=== PATIENT | male | born 1950 | race Caucasian/White ===

== ENCOUNTER 2017-03-06 13:56 | Inpatient (IN) ==
[2017-03-06] MEDS ORDERED: THIAMINE INJ 100 MG, FOLIC ACID INJ 1 MG, MAGNESIUM SULF INJ 2 GM, MULTIVITAMIN INJ 10 ... IV ONE (14:10)
[2017-03-06] MEDS ORDERED: SODIUM CHLORIDE 0.9% 500 ML IV STA (14:10)
[2017-03-06 14:37] LABS: Basophils # 0.1 10*3/uL (0.0-0.2); Basophils % 0.8 % (0.0-0.8); Eosinophils # 0.3 10*3/uL (0.0-0.87); Eosinophils % 5.1 % (0.00-10.9); Hemoglobin 13.7 GM/DL (14.0-18.0); Immature Granulocytes % 0.2 %; Immature Granulocytes Absolute 0.01 #; Lymphocytes # 1.8 10*3/uL (1.4-4.0); Lymphocytes % 27.9 % (21.2-54.2); Mean Corpuscular HGB Conc 34.3 GM/DL (32-36); Mean Corpuscular Hemoglobin 32 PG (27-34); Mean Corpuscular Volume 92.8 FL (87-102); Mean Platelet Volume 9.5 FL (9.6-12.0); Monocytes # 0.7 10*3/uL (0.11-0.8); Neutrophils # 3.7 10*3/uL (1.4-7.4); Platelet Count 301 T/CUMM (130-400); Red Blood Count 4.31 MC/CUMM (3.8-5.5); Red Cell Distribution Width 12.2 % (9.3-17.3); White Blood Count 6.5 T/CUMM (4-12)
--- NOTE | 2017-03-06 15:12 | XRay Report ---
History: Altered mental status Date: 03/06/2017 Study: Chest x-ray AP portable Comparison exam: 03/05/2017 The cardiomediastinal silhouette is unchanged. The pulmonary vasculature is not engorged. The lungs are generally clear for shallow breath. There is no gross pleural effusion. Osseous structures are similar. Impression: No acute cardiopulmonary process. No significant interval change PROCEDURE INTERPRETED AT [facility] DEPARTMENT OF RADIOLOGY Final Report Signed by: Dr. Tanya Joseph
[2017-03-06 15:16] LABS: Alanine Aminotransferase 20 U/L (16-61); Alkaline Phosphatase 80 U/L (45-117); Aspartate Amino Transferase 38 U/L (0-37); Blood Urea Nitrogen 23 MG/DL (7-18); Calcium 8.9 MG/DL (8.5-10.1); Glucose 110 MG/DL (74-106); Osmolality,Calculated 283.4 MOS/KG (273-304); Potassium 4.3 MMOL/L (3.5-5.1); Sodium 140 MMOL/L (136-145); Total Protein 6.6 G/DL (6.4-8.3); Troponin I Only < 0.015 NG/ML (0.00-0.045)
[2017-03-06 15:35] LABS: Acetaminophen 5.9 UG/ML (10-30); Salicylate < 2.8 MG/DL (2.8-20)
[2017-03-06 16:13] LABS: Apearance,Urine CLEAR (Clear); Bacteria,Urine Occasional /HPF (Few); Bilirubin,Urine Negative (Negative); Blood, Urine Negative (Negative); Glucose,Urine (UA) Negative (Negative); Hyaline Casts,Urine 11 /LPF (0-3); Ketones,Urine 5 mg/dL (Negative); Mucus,Urine Occasional /LPF (Occasional); Nitrite,Urine Negative (Negative); Protein,Urine Negative; RBC,Urine <1 /HPF (0-4); Squamous Epithelial Cell,Urine Occasional /HPF (0-10); Urine Color Yellow (Yellow); Urine Specific Gravity 1.018 (1.001-1.035); Urine Urobilinogen < 2.0 EU/DL (0.2-1.0); WBC,Urine 3 /HPF (0-6)
[2017-03-06 16:20] LABS: Barbiturates Screen,Urine Negative (Negative); Benzodiazepines Screen,Urine Negative (Negative); Cannabinoid Screen,Urine Negative (Negative); Opiate Screen,Urine Positive (Negative); Phencyclidine Screen,Urine Negative (Negative)
--- NOTE | 2017-03-06 16:34 | Emergency Department Note ---
Amado Kaufman Brittany, am scribing for, and in the presence of, Savage Skinner MD 14:15. Brody Kaufman Doug C, MD, personally performed the services described in this documentation, ascribed by Sandy Fischer in my presence, and it is both accurate and complete [id number] . Arrival - Arrival Chief Complaint: Altered Mental Status Stated Complaint: Unresponsive ED Nursing Triage Note: altered mental status. brought per family from home. was seen here yesterday. Mode of Arrival: Wheelchair Limitations: No Limitations Source: Patient, RN Notes Reviewed Time Seen by Provider: 03/06/17 14:10 - History of Present Illness HPI Narrative: Patient 67-year-old white male brought to the emergency room for decreased responsiveness. Patient apparently lives alone and was here in the emergency room yesterday. His laboratory studies were normal as was a CT of his brain. Chest x-ray revealed no evidence of pneumonia or other abnormality. Patient is very deaf and difficult to get history from but he told me he is having chest pain that started this morning. He states is short of breath but is always a little short of breath. He has not had any nausea vomiting or diaphoresis. Patient was seen here in the emergency room yesterday and he had no clear medical indication for admission. I told the family that he needed supervision as he certainly appears to be in capable of living alone. I asked the family if he took too much of his medications and they are uncertain. Onset (ago): hour(s) (2) Consistency: constant Severity: moderate Severity scale (1-10): 6 Quality: sharp Allergies/Adverse Reactions: Allergies Allergy/AdvReac Type Severity Reaction Status Date / Time No Known Allergies Allergy Verified 03/05/17 13:52 Home Medications: Home Medications Medication Instructions Recorded Confirmed Type Acetamin/Codeine 300-30 Tab 1 - 2 tablet PO Q6H PRN 06/05/15 03/05/17 History [Tylenol/Codeine #3] Gabapentin Cap/Tab [Neurontin 300 mg PO BID 06/05/15 03/05/17 History Cap/Tab] Nabumetone [Relafen] 750 mg PO BID 06/05/15 03/05/17 History clonazePAM [Klonopin] 1 mg PO BID PRN 06/05/15 03/05/17 History Albuterol Inhaler [Proventil 2 puff INH Q6H PRN #1 inhaler 03/05/17 Rx Inhaler] Albuterol Sulfate [Ventolin HFA] 2 puff PO DAILY PRN 03/05/17 03/05/17 History Amitriptyline HCl 25 mg PO BEDTIME 03/05/17 03/05/17 History Amoxicillin Cap/Tab 875 mg PO BID #20 tablet 03/05/17 Rx Baclofen Tab [Lioresal] 10 mg PO TID 03/05/17 03/05/17 History Tizanidine HCl 4 mg PO Q8H PRN 03/05/17 03/05/17 History Review of System - Review of System 12 point system: reviewed and no additional remarkable complaints except as stated - Review of System Constitutional: Absent: chills, diaphoresis, fever Eyes: Absent: vision change Head/Ears/Nose/Throat: Absent: nasal drainage, sore throat Respiratory: Present: respiratory distress Cardiovascular: Present: as per HPI, chest pain Gastrointestinal: Present: nausea. Absent: abdominal pain, vomiting, diarrhea, constipation Genitourinary male: Absent: urgency, dysuria, frequency Musculoskeletal: Absent: arm pain, back pain, leg pain, neck pain Skin: Present: as per HPI. Absent: rash Neurological: Absent: headache Psychiatric: Absent: anxiety, depression Hematological/Lymphatic: Absent: easy bleeding, easy bruising Medical,Surgical,& Family Hx - Medical History Respiratory: History of: COPD - Surgical History Surgical History: noncontributory - Family History Family History: noncontributory - Social History Smoking Status: Smoker, status unknown Exam Vital Signs: Vital Signs Temperature 98.2 F 03/06/17 16:24 Pulse Rate 67 03/06/17 16:24 Respiratory Rate 20 03/06/17 16:24 Blood Pressure 114/70 03/06/17 16:24 O2 Sat by Pulse Oximetry 100 03/06/17 13:59 - General General appearance: alert, in no apparent distress, other (History is difficult secondary to patient's poor hearing) - Head Head exam: Present: normocephalic - Eye Eye exam: Present: PERRL, EOMI - ENT ENT exam: Present: normal exam, normal oropharynx - Neck Neck exam: Present: normal inspection, full ROM, trachea midline - Chest Chest inspection: Present: normal inspection, symmetric chest wall rise - Respiratory Respiratory exam: Present: normal lung sounds bilaterally - Cardiovascular Cardiovascular exam: Present: regular rate, normal rhythm, murmur (5/6 systolic ejection murmur at the left base and apex). Absent: normal heart sounds - Abdominal Exam Abdominal exam: Present: soft, normal bowel sounds. Absent: tenderness - Extremities Exam Extremities exam: Present: full ROM. Absent: normal inspection (merthiolate noted to bilateral upper extremities) - Back Exam Back exam: Present: normal inspection - Neurological Exam Neurological exam: Present: alert, oriented X3, CN II-XII intact. Absent: motor sensory deficit - Psychiatric Psychiatric exam: Present: normal affect - Skin Skin exam: Present: warm, dry, other (merthiolate noted to bilateral upper extremities) Course Course Narrative: Patient's clinical presentation, laboratory radiograph findings were discussed with Bhavana who is covering the hospitalist service. She will see the patient emergency room and evaluate for admission. Results - Labs CBC & BMP: 03/06/17 14:28 03/06/17 14:34 Lab Results: I have reviewed the patients labs Labs: Laboratory Tests 03/06/17 14:28 WBC 6.5 RBC 4.31 Hgb 13.7 L Hct 40.0 L MCV 92.8 MCH 32 MCHC 34.3 RDW 12.2 Plt Count 301 MPV 9.5 L Neut % (Auto) 56.0 Lymph % (Auto) 27.9 [place] % (Auto) 10.0 Eos % (Auto) 5.1 Baso % (Auto) 0.8 Neut # (Auto) 3.7 Lymph # (Auto) 1.8 [place] # (Auto) 0.7 Eos # (Auto) 0.3 Baso # (Auto) 0.1 Immature Gran % 0.2 Nucleated RBC % 0.0 Immature Gran # 0.01 Nucleated RBCs # 0.00 Laboratory Tests 03/06/17 14:34 Sodium 140 Potassium 4.3 Chloride 106 Carbon Dioxide 25 Anion Gap 13.3 BUN 23 H Creatinine 1.60 H GFR Calculation 47 BUN/Creatinine Ratio 14.00 Glucose 110 H Calculated Osmolality 283.4 Calcium 8.9 Total Bilirubin 0.90 AST 38 H ALT 20 Alkaline Phosphatase 80 Troponin I < 0.015 Total Protein 6.6 Albumin 4.0 Globulin 2.6 Albumin/Globulin Ratio 1.5 Laboratory Tests 03/06/17 14:28 Salicylates < 2.8 L Acetaminophen 5.9 L Laboratory Tests 03/06/17 03/06/17 16:05 16:05 Urine Color Yellow Urine Appearance Clear Urine pH 5.0 Ur Specific [place] 1.018 Urine Protein Negative Urine Glucose (UA) Negative Urine Ketones 5 Urine Blood Negative Urine Nitrate Negative Urine Bilirubin Negative Urine Urobilinogen < 2.0 H Urine Leukocytes Negative Urine RBC <1 Urine WBC 3 Ur Squamous Epith Cells Occasional Urine Bacteria Occasional Hyaline Casts 11 Urine Mucus Occasional Urine Myoglobin Negative Laboratory Tests 03/06/17 03/06/17 16:05 16:05 Urine Color Yellow Urine Appearance Clear Urine pH 5.0 Ur Specific [place] 1.018 Urine Protein Negative Urine Glucose (UA) Negative Urine Ketones 5 Urine Blood Negative Urine Nitrate Negative Urine Bilirubin Negative Urine Urobilinogen < 2.0 H Urine Leukocytes Negative Urine RBC <1 Urine WBC 3 Ur Squamous Epith Cells Occasional Urine Bacteria Occasional Hyaline Casts 11 Urine Mucus Occasional Urine Opiates Screen Positive H Ur Barbiturates Screen Negative Ur Phencyclidine Scrn Negative U Amphetamine/Methamph Negative U Benzodiazepines Scrn Negative U Cocaine Metab Screen Negative U Cannabinoids Screen Negative - EKG EKG results: interpreted by ERMShi, sinus rhythm (65 bpm), no acute changes - Diagnostic Findings Procedure: Chest x-ray: report reviewed by me (No acute cardiopulmonary process. No significant interval change.) Disposition Clinical Impression: Altered mental status, Unsteady gait, Recurrent falls Case discussed with: patient, patient's family Disposition: Still a Patient Condition: Stable Time of Disposition: 16:34
--- NOTE | 2017-03-06 17:03 | Hospitalist History & Physical ---
<Rachel De La Torreda - Last Filed: 03/06/17 17:24> Assessment and Plan (1) Altered mental status Status: Acute Assessment and plan: He is altered. Upon review of his medications; he was noted to have several agents with the potentiation of sedation. We will hold these agents for now. We will give him a chance to wake-up. Current Visit: Yes (2) Recurrent falls Status: Acute Assessment and plan: I suspect that this is largely attributed to his current medication use and mis- management. He is weak; we will rehydrate and consult PT/OT to eval and treat. Current Visit: Yes (3) Unsteady gait Status: Acute Assessment and plan: PT/OT consult ordered. Current Visit: Yes (4) Acute bronchitis Status: Acute Assessment and plan: We will start inhaled bronchodilators per nebulizer; will adjust and mange accordingly. Current Visit: No History of Present Illness Chief complaint: altered mental status/falls/generalized weakness History of present illness: This is very poor and unfortunate 67 year old male that presented to the ED at [facility] this afternoon for evaluation of generalized weakness, and falls. The patient has a very limited medical history of chronic obstructive pulmonary disease and arthritis. His sister is at bedside; she will serve as historian. She reports that the patient was told in past that he had "bone cancer" and "multiple sclerosis". She reports that the patient has been experiencing issues since their mother's and attributes gradual decline in status to "grief". The patient was brought to the ED on yesterday for the same complaint in which he was seen, evaluated, and discharged. CT scan and chest radiograph was performed on yesterday which were essentially unremarkable Overnight; his sister reports that he sustained several falls on last night and this morning while attempting to ambulate. She reports that he became difficult to arouse; she became alarmed and brought him to the ED for further evaluation. Labs were obtained which revealed a creatinine of 1.60, AST of 38, glucose of 110, salicylates of <28, and acetaminophen of 5.9. After brief discussion with both Dr. Skinner and Dr. Morrissey, the patient will be admitted to the hospitalist service for continuation of care. The sister verbalized concerns regarding the patient current home situation.We will consult social work coordinator for evaluation of home environment. Home Medications Medication Instructions Recorded Confirmed Type Acetamin/Codeine 300-30 Tab 1 - 2 tablet PO Q6H PRN 06/05/15 03/05/17 History [Tylenol/Codeine #3] Gabapentin Cap/Tab [Neurontin 300 mg PO BID 06/05/15 03/05/17 History Cap/Tab] Nabumetone [Relafen] 750 mg PO BID 06/05/15 03/05/17 History clonazePAM [Klonopin] 1 mg PO BID PRN 06/05/15 03/05/17 History Albuterol Inhaler [Proventil 2 puff INH Q6H PRN #1 inhaler 03/05/17 Rx Inhaler] Albuterol Sulfate [Ventolin HFA] 2 puff PO DAILY PRN 03/05/17 03/05/17 History Amitriptyline HCl 25 mg PO BEDTIME 03/05/17 03/05/17 History Amoxicillin Cap/Tab 875 mg PO BID #20 tablet 03/05/17 Rx Baclofen Tab [Lioresal] 10 mg PO TID 03/05/17 03/05/17 History Tizanidine HCl 4 mg PO Q8H PRN 03/05/17 03/05/17 History Allergies Allergy/AdvReac Type Severity Reaction Status Date / Time No Known Allergies Allergy Verified 03/05/17 13:52 Medical,Surgical,& Family Hx - Medical History Respiratory: History of: COPD - Social History Smoking Status: Smoker, status unknown ROS unobtainable: due to mental status Exam - Constitutional Vitals: Period Temp Pulse Resp BP Sys/[place] Pulse Ox Last 24 Hr 98.2 F-98.2 F 67-67 18-20 114-114/70-70 100 General appearance: normal weight, no acute distress - Head Head exam: Present: normal inspection, normocephalic, atraumatic - Eye Eye exam: Present: EOMI. Absent: conjunctival injection Pupils: Present: SHARLA, normal accommodation - ENT ENT exam: Present: normal exam, normal external ear exam, normal oropharynx - Neck Neck exam: Present: normal inspection. Absent: lymphadenopathy, meningismus, thyromegaly - Respiratory Respiratory exam: Present: clear to auscultation bilaterally - Cardiovascular Cardiovascular exam: Present: regular rate and rhythm, systolic murmur - GI/Abdominal GI/Abdominal exam: Present: normal bowel sounds, soft - Extremities Exam Extremities exam: Present: normal inspection, normal capillary refill, full ROM. Absent: edema - Back Exam Back exam: Present: normal inspection - Neurological Exam Neurological exam: Present: altered (lethargic) - Psychiatric Psychiatric exam: Present: flat affect Results - Labs CBC & BMP: 03/06/17 14:28 03/06/17 14:34 Lab Results: I have reviewed the past 24 hour labs <Marija Morrissey - Last Filed: 03/06/17 18:42> Assessment and Plan (1) Acute kidney injury Status: Acute Assessment and plan: Creatinine of 1.6 Gently hydrate overnight Recheck in am Most likely secondary to dehydration, given patient's poor appetite. Current Visit: Yes History of Present Illness History of present illness: Patient seen and examined independently of SPORTS DIRECTOR Wil, agree with history, assessment and plan as documented. 67 y/o WM admitted for generalized weakness, falls and HOENY. Patient has difficulty hearing so unable to get a history from him. Will gently hydrate, monitor on telemetry and get orthostatic vitals. On exam patient does have a murmur, will get an echo. Exam - Constitutional Vitals: Period Temp Pulse Resp BP Sys/[place] Pulse Ox Last 24 Hr 97.8 F-98.2 F 55-67 16-21 104-126/54-70 97-100 Results - Labs CBC & BMP: 03/06/17 14:28 03/06/17 14:34
[2017-03-06] MEDS ORDERED: ONDANSETRON 4 MG/2 ML VIAL IV PRN (17:30)
[2017-03-06] MEDS: ENOXAPARIN 40 MG/0.4 ML SYRINGE SUBCUT SCH (18:26)
[2017-03-06] MEDS: DEXTROSE 5% NACL 0.9% 1,000 ML IV SCH (18:32)
--- NOTE | 2017-03-06 19:46 | Ultrasound Report ---
History: Altered mental status. Unsteady gait. Recurrent falls. Syncope Date: 03/06/2017 Study: Carotid duplex ultrasound Comparison exam: No previous similar Color Doppler, wave form analysis, and grayscale analysis of the cervical carotid arteries was performed. There is mild to moderate partially calcified plaque in either carotid bulb. Waveform analysis shows proper directional flow of the cervical carotid arteries. There is antegrade flow in either vertebral artery. The distal right ICA measures 6.1 mm diameter; the left measures 4.7 mm diameter. Peak systolic velocities are as follows: Right CCA 62 cm/s Right ICA 100 cm/s Right ECA 56 cm/s Right vertebral 57 cm/s Right IC/CC ratio 1.6 Left CCA 42 cm/s Left ICA 102 cm/s Left ECA 81 cm/s Left vertebral 25 cm/s Left IC/CC ratio 2.4 There is 16-49 % diameter reduction narrowing of either internal carotid artery using indirect NASCET criteria. Ultrasound images were captured and archived. Impression: No hemodynamically significant internal carotid artery stenosis PROCEDURE INTERPRETED AT [facility] DEPARTMENT OF RADIOLOGY Final Report Signed by: Dr. Tanya Joseph
[2017-03-06] MEDS: SODIUM CHLORIDE 0.9% 1,000 ML IV SCH (22:58)
[2017-03-07] MEDS: DEXTROSE 5% NACL 0.9% 1,000 ML IV SCH ×2 (03:07→17:41)
[2017-03-07 06:33] LABS: Basophils # 0.1 10*3/uL (0.0-0.2); Basophils % 1.3 % (0.0-0.8); Eosinophils # 0.3 10*3/uL (0.0-0.87); Eosinophils % 8.6 % (0.00-10.9); Hematocrit 37.6 VOL% (42.0-52.0); Hemoglobin 12.2 GM/DL (14.0-18.0); Immature Granulocytes % 0.3 %; Immature Granulocytes Absolute 0.01 #; Lymphocytes # 1.7 10*3/uL (1.4-4.0); Lymphocytes % 44.4 % (21.2-54.2); Mean Corpuscular HGB Conc 32.4 GM/DL (32-36); Mean Corpuscular Hemoglobin 31 PG (27-34); Mean Corpuscular Volume 96.4 FL (87-102); Mean Platelet Volume 9.3 FL (9.6-12.0); Monocytes # 0.3 10*3/uL (0.11-0.8); Monocytes % 9.1 % (1.7-12.7); Neutrophils # 1.4 10*3/uL (1.4-7.4); Neutrophils % 36.3 % (38.7-73.9); Platelet Count 250 T/CUMM (130-400); Red Cell Distribution Width 12.5 % (9.3-17.3); White Blood Count 3.7 T/CUMM (4-12)
[2017-03-07 07:03] LABS: Eosinophils 11 % (0-10); Lymphocytes 40 % (20-55); Segmented Neutrophils 45 % (50-85); Total Cells Counted 100
[2017-03-07 07:04] LABS: Platelet Estimate Normal
[2017-03-07 07:08] LABS: Albumin 2.9 G/DL (3.4-5.0); Bilirubin,Total 0.8 MG/DL (0.2-1.0); Calcium 7.3 MG/DL (8.5-10.1); Magnesium 2.2 MG/DL (1.8-2.4); Osmolality,Calculated 288.6 MOS/KG (273-304); Potassium 3.9 MMOL/L (3.5-5.1); Risk Ratio 2.28; Total Protein 4.9 G/DL (6.4-8.3); VLDL CHOLESTEROL 14.2 MG/DL
--- NOTE | 2017-03-07 07:29 | EKG Report ---
Stationary ECG Study 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
--- NOTE | 2017-03-07 14:14 | Hospitalist Progress Note ---
Assessment and Plan (1) Acute kidney injury Status: Acute Assessment and plan: Creatinine of 1.6 on admission Creatinine down to normal after gentle hydration overnight Will discontinue IV fluids Encourage po intake Monitor labs Current Visit: Yes (2) Altered mental status Status: Acute Assessment and plan: Improved Current Visit: Yes (3) Recurrent falls Status: Acute Assessment and plan: Unable to get a clear history from the patient, due to difficulty hearing and dementia, so unsure if associated with syncope Unimpressive carotid dopplers Echo ordered Monitoring on telemetry Possibly due to medication misuse. Current Visit: Yes Hospitalist: Subjective Interval history: No acute events overnight. Patient awake and alert this am. Very difficult to obtain history due to him being hard of hearing. His sister reports that his appetite has been better today and that he has been more awake. Exam - Constitutional Vitals: Period Temp Pulse Resp BP Sys/[place] Pulse Ox Last 24 Hr 97.2 F-98.2 F 55-79 16-21 104-133/54-74 94-100 General appearance: normal weight - Head Head exam: Present: normocephalic, atraumatic - Eye Eye exam: Present: EOMI Pupils: Present: SHARLA - ENT ENT exam: Present: normal exam - Neck Neck exam: Present: normal inspection - Respiratory Respiratory exam: Present: clear to auscultation bilaterally. Absent: rhonchi, wheezes - Cardiovascular Cardiovascular exam: Present: regular rate and rhythm - GI/Abdominal GI/Abdominal exam: Present: normal bowel sounds, soft. Absent: tenderness, rebound - Extremities Exam Extremities exam: Present: normal inspection - Back Exam Back exam: Present: normal inspection - Neurological Exam Neurological exam: Present: alert, oriented X3 - Psychiatric Psychiatric exam: Present: normal affect, normal mood - Skin Skin exam: Present: warm, intact Results - Labs CBC & BMP: 03/07/17 06:15 03/07/17 06:14
[2017-03-07] MEDS: SODIUM CHLORIDE 0.9% 1,000 ML IV SCH (17:42)
[2017-03-07] MEDS: ENOXAPARIN 40 MG/0.4 ML SYRINGE SUBCUT SCH (19:18)
--- NOTE | 2017-03-07 20:10 | ECHO Report ---
Hubert Cardenas Exam Date: 03/07/2017 10:19 Referring Physician: Technologist: Bebe Trevizo Age: 67 Ht (in): 66 Wt (lb): 134 Gender: M Exam Location: [facility] Echo Indications: severe fall, Copd, possible syncioe, murmur, acute bronchitis, acute kidney failure BP: 121 / 74 HR: 63 Rhythm: Sinus Technical Quality: average IMPRESSIONS There is moderate concentric left ventricular hypertrophy. EF is 55%. Diastolic parameters are most consistent with grade 1 diastolic dysfunction. Mild mitral valve regurgitation. There is mitral annular calcification posteriorly. Tricuspid regurgitation velocities suggest a PAP of 28 mmHg. Severe aortic stenosis with estimated BETO of 0.69 cm2 MEASUREMENTS (Male / Female) Normal Values 2D ECHO LV Diastolic Diameter PLAX 3.9 cm 4.2 - 5.9 / 3.9 - 5.3 cm LV Systolic Diameter PLAX 2.4 cm LV Fractional Shortening PLAX 36.6 % IVS Diastolic Thickness 1.7 cm 0.6 - 1.0 / 0.6 - 0.9 cm LVPW Diastolic Thickness 1.3 cm 0.6 - 1.0 / 0.6 - 0.9 cm RV Internal Dim ED PLAX 2.5 cm Aortic Root Diameter 3.4 cm LA Systolic Diameter LX 3.7 cm 3.0 - 4.0 / 2.7 - 3.8 cm DOPPLER TR Peak Velocity 211.0 cm/s TR Peak Gradient 17.8 mmHg FINDINGS Left Ventricle There is moderate concentric left ventricular hypertrophy. There is no regional wall motion abnormality. Diastolic parameters are most consistent with grade 1 diastolic dysfunction. There is no clear regional wall motion abnormality. EF is 55% Right Ventricle Normal right ventricular size and systolic function. Right Atrium Normal right atrial size. Left Atrium Normal left atrial size. Mitral Valve Mild mitral valve sclerosis. Mild mitral valve regurgitation. There is mitral annular calcification posteriorly. Aortic Valve Severe aortic valve stenosis. Aortic valve area is 0.69 cm. Aortic valve mean gradient is 48 mmHg. The peak velocity across the valve is 4.71 m/sec with a peak instantaneous gradient of 89 and a mean gradient of 48 mmHg. This is calcific stenosis Tricuspid Valve Morphologically normal tricuspid valve. Mild tricuspid valve regurgitation. Tricuspid regurgitation velocities suggest a PAP of 28 mmHg. Pulmonic Valve Pulmonic valve not well visualized. Pericardium No pericardial effusion. Aorta Normal size aortic root and proximal ascending aorta. Dawn Sabina (Electronically Signed) Final Date: 07 Mar 2017 20:08
[2017-03-08 05:06] LABS: Basophils # 0.1 10*3/uL (0.0-0.2); Basophils % 1.3 % (0.0-0.8); Eosinophils # 0.3 10*3/uL (0.0-0.87); Hematocrit 36.7 VOL% (42.0-52.0); Hemoglobin 12.4 GM/DL (14.0-18.0); Immature Granulocytes % 0.4 %; Immature Granulocytes Absolute 0.02 #; Lymphocytes # 1.7 10*3/uL (1.4-4.0); Lymphocytes % 35.8 % (21.2-54.2); Mean Corpuscular HGB Conc 33.8 GM/DL (32-36); Mean Corpuscular Hemoglobin 32 PG (27-34); Mean Corpuscular Volume 94.1 FL (87-102); Mean Platelet Volume 9.7 FL (9.6-12.0); Monocytes # 0.5 10*3/uL (0.11-0.8); Monocytes % 10.2 % (1.7-12.7); Neutrophils # 2.2 10*3/uL (1.4-7.4); Neutrophils % 46.3 % (38.7-73.9); Platelet Count 282 T/CUMM (130-400); Red Cell Distribution Width 12.3 % (9.3-17.3); White Blood Count 4.7 T/CUMM (4-12)
[2017-03-08 05:30] LABS: Calcium 8.6 MG/DL (8.5-10.1); Potassium 4.1 MMOL/L (3.5-5.1)
[2017-03-08] MEDS ORDERED: TUBERCULIN SKIN TEST 0.1 ML SYRINGE INTRADERM ONE (12:00)
[2017-03-08] MEDS ORDERED: DIAZEPAM 5 MG TABLET PO ONE (13:16)
[2017-03-08] MEDS ORDERED: diphenhydrAMINE CAP 25 MG CAPSULE PO ONE (13:16)
[2017-03-08] MEDS ORDERED: MAGNESIUM SULF RIDER 2 GM in PREMIX 1 EACH IV PRN (13:16)
--- NOTE | 2017-03-08 13:26 | Cardiology Consult Note ---
I, Helena Jernigan RN, am scribing for, and in the presence of, Fabio Youssef MD 13:22. Assessment and Plan - Time spent with patient Time spent with patient: Greater than 30 minutes (Due to assessment, planning, documentation, medication review) (1) Severe aortic stenosis Status: Acute Assessment and plan: The patient will likely need valve replacement. I am going to do cardiac catheterization to assess his coronary anatomy to help plan the best timing and approach for valve replacement. We may also need to define his "bone cancer" to make sure this does not make him a poor operative candidate. Unfortunately, he does not have any records in the hospital to review. Current Visit: Yes (2) Syncope Status: Acute Assessment and plan: Some of these spells may be related to his aortic stenosis, other episodes may be related to narcotics, or some combination of both. Current Visit: Yes (3) Hard of hearing Status: Acute Current Visit: Yes (4) Dementia Status: Acute Current Visit: Yes (5) Recurrent falls Status: Acute Assessment and plan: Many of these may actually be related to chronic narcotic use. However, he does have severe aortic stenosis which may also be a factor. Current Visit: Yes History of Present Illness - Data of Consult Patient: new to practice Consult date: 03/08/17 Requesting Physician: Marija Morrissey - Consult Narrative Reason for consult: Severe aortic stenosis on echo History of present illness: Product Inspection Coordinator: None PCP: Dr. Johnson Mr. Ronald Ramirez is a 67 year old male who has never been seen by pocket marker. He is extremely hard of hearing and has some dementia so he is a very poor historian and the majority of the information is obtained from his sister who is at the bedside. She has power of transactional attorney over him. Apparently his mother was his caregiver until she within the last few years. The only thing he can tell me about his history is that he has been told he has a heart murmur. His sister reports he also has arthritis, multiple sclerosis, and "bone cancer" . She is unsure if he has undergone any treatment for the cancer, but he has chronic diffuse musculoskeletal pain. He is on chronic narcotic therapy at home. No known surgical history. His sister is unaware of any paternal family history family history, his mother had a history of thyroid disease and cancer and he has siblings with hypertension, diabetes, and cancer. He no longer smokes, reportedly quit smoking about 40 years ago. The sister tells me that for several months Mr. Cardenas has had multiple falls. She reports that numerous times he has become short of breath and passed out. She reports that he chronically short of breath at rest, but this is gotten worse over the last several months. He complains of generalized pain all over his body from time to time. He has recently been dizzy and weak. She reports a recent weight loss about 30 pounds over the last 6 months. She brought her to the emergency department up for yesterday because he was unresponsive, although he was positive for opiates. She does admit that on several occasions in the past when he has had spells, he has been clearly impaired from the narcotics. Cardiology has been asked to see the patient for evidence of severe aortic valve stenosis on echo. He had an echo done that was ordered by Radha Rey NP in January 2015 that showed moderate aortic stenosis. Both the patient and his sister said that he has never seen a pocket marker regarding this. A repeat echo here in the hospital shows severe aortic stenosis with a mean gradient of around 48 mmHg and an aortic valve area calculated at around 0.7 cm. At the time I saw the patient, he was sitting up in a chair in no acute distress. He denies any chest pain or discomfort at this time. He also denies any shortness of breath, palpitations, or dizziness presently. Vital signs and labs have been stable. His home medications have been held at this time. EKG done on admission showed sinus rhythm with heart rate of 65. Carotid ultrasound done March 06 with 16-49% diameter reduction narrowing of either internal carotid artery. Chest x-ray on admission was unremarkable. I had a long discussion with the patient's sister regarding how to evaluate and treat him. He does have severe aortic stenosis and it sounds like it is symptomatic, at least at times. At other times, it sounds like his near syncopal/syncopal spells and falls may be related to narcotics. Nevertheless, I think we should define his coronary anatomy. If he has significant obstructive coronary artery disease in addition to his severe aortic stenosis, and AVR CABG may be the best treatment option. I mentioned to however, but it does not sound like the patient/family will be able to travel to [place] for this kind of procedure. Current Medications Enoxaparin Sodium (Lovenox) 40 mg SUBCUT Q24H JOSEPHINE Last Admin: 03/07/17 19:18 Dose: 40 mg Ondansetron HCl (Zofran Inj) 4 mg IV Q4H PRN PRN Reason: Nausea CC: Marija Morrissey MD - Home Medications and Allergies Home Medications: Home Medications Medication Instructions Recorded Confirmed Type Acetamin/Codeine 300-30 Tab 1 - 2 tablet PO Q6H PRN 06/05/15 03/05/17 History [Tylenol/Codeine #3] Gabapentin Cap/Tab [Neurontin 300 mg PO BID 06/05/15 03/05/17 History Cap/Tab] Nabumetone [Relafen] 750 mg PO BID 06/05/15 03/05/17 History clonazePAM [Klonopin] 1 mg PO BID PRN 06/05/15 03/05/17 History Albuterol Inhaler [Proventil 2 puff INH Q6H PRN #1 inhaler 03/05/17 Rx Inhaler] Albuterol Sulfate [Ventolin HFA] 2 puff PO DAILY PRN 03/05/17 03/05/17 History Amitriptyline HCl 25 mg PO BEDTIME 03/05/17 03/05/17 History Amoxicillin Cap/Tab 875 mg PO BID #20 tablet 03/05/17 Rx Baclofen Tab [Lioresal] 10 mg PO TID 03/05/17 03/05/17 History Tizanidine HCl 4 mg PO Q8H PRN 03/05/17 03/05/17 History Allergies/Adverse Reactions: Allergies Allergy/AdvReac Type Severity Reaction Status Date / Time No Known Allergies Allergy Verified 03/05/17 13:52 - Constitutional Constitutional: Present: as per HPI - EENT Eyes: Present: loss of vision, requires corrective lense Ears: Present: decreased hearing, tinnitus Nose, mouth and throat: Present: headache(s). Absent: epistaxis - Cardiovascular Cardiovascular: Present: dyspnea, lightheadedness, palpitations. Absent: chest pain at rest, chest pain with activity, edema, radiating jaw, neck or arm pain, orthopnea - Respiratory Respiratory: Present: cough, dyspnea. Absent: hemoptysis, wheezing - Gastrointestinal Gastrointestinal: Absent: abdominal pain, constipation, diarrhea, hematemesis, hematochezia, melena, nausea, vomiting - Genitourinary Genitourinary: Absent: hematuria - Musculoskeletal Musculoskeletal: Present: joint swelling, limited range of motion, muscle weakness - Neurological Neurological: Present: abnormal gait, abnormal speech, confusion, dizziness, frequent falls, headache(s), syncope - Psychiatric Psychiatric: Absent: anxiety, depression - Endocrine Endocrine: Present: fatigue - Hematologic/Lymphatic Hematologic/Lymphatic: Absent: easy bleeding, easy bruising Medical,Surgical,& Family Hx - Medical History Cardio: History of: Valvular Heart Disease Rheumatology: History of;: Rheumatoid Arthritis Respiratory: History of: COPD Musculoskeletal: History of: Musculoskeletal Problems Other: History of: Cancer (Bone) - Surgical History Surgical History: noncontributory - Social History Smoking Status: Former smoker (Quit about 40 years ago) Frequency of Alcohol Use: None Type of Drug Use: None Marital Status: Single Lives With:: Alone Functional capacity: independent ambulation Physical Examination Vital Signs Temp Pulse Resp BP Pulse Ox 98.2 F 67 20 114/70 100 03/06/17 13:59 03/06/17 13:59 03/06/17 13:59 03/06/17 13:59 03/06/17 13:59 General: Present: Appears Well, No Apparent Distress HEENT: Present: PERRL, Mucus Membranes Moist Neck: Present: Supple Neck, Midline Trachea Cardiac: Present: Reg Rate and Rhythm, Systolic Murmur Lungs: Present: Normal Breath Sounds, No Wheeze, Rales, Rhonchi Neuro: Absent: Resting Tremor, Essential Tremor Abdomen: Present: Soft, Active Bowel Sounds, Non-Tender. Absent: Distended Skin: Present: Clear Musculoskeletal: Present: Decreased Range of Motion Gait: Present: Poor Gait Extremities: Present: No Edema, Normal Upper Extr. Pulses. Absent: Normal Gait , Normal Lower Extr. Pulses (Weight pulses to lower extremities bilaterally) Result/EKG - Labs CBC & BMP: 03/08/17 04:42 03/08/17 04:42 Lab Results: I have reviewed the past 24 hour labs Labs: Laboratory Results - last 24 hr 03/08/17 03/08/17 04:42 04:42 WBC 4.7 RBC 3.90 Hgb 12.4 L Hct 36.7 L MCV 94.1 MCH 32 MCHC 33.8 RDW 12.3 Plt Count 282 MPV 9.7 Neut % (Auto) 46.3 Lymph % (Auto) 35.8 [place] % (Auto) 10.2 Eos % (Auto) 6.0 Baso % (Auto) 1.3 H Neut # (Auto) 2.2 Lymph # (Auto) 1.7 [place] # (Auto) 0.5 Eos # (Auto) 0.3 Baso # (Auto) 0.1 Immature Gran % 0.4 Nucleated RBC % 0.0 Immature Gran # 0.02 Nucleated RBCs # 0.00 Sodium 143 Potassium 4.1 Chloride 108 H Carbon Dioxide 27 Anion Gap 12.1 BUN 12 Creatinine 0.90 GFR Calculation 85 BUN/Creatinine Ratio 13.00 Glucose 97 Calculated Osmolality 284.0 Calcium 8.6 Magnesium 2.0 - Diagnostic Findings Procedure: Chest x-ray: report reviewed by me - EKG EKG results: interpreted by me EKG shows: sinus rhythm Mikael Kaufman Michael, MD, personally performed the services described in this documentation, ascribed by Helena Jernigan RN in my presence, and it is both accurate and complete 326 .
--- NOTE | 2017-03-08 14:34 | Hospitalist Progress Note ---
Assessment and Plan (1) Acute kidney injury Status: Resolved Assessment and plan: Creatinine of 1.6 on admission Creatinine down to normal after gentle hydration overnight IV fluids discontinued 03/07 Encourage po intake Monitor labs Current Visit: Yes (2) Altered mental status Status: Acute Assessment and plan: Improved Patient is alert Family reports that patient does have dementia Mental status changes possibly due to over medication Patient was taking his medications on his own, inappropriately Current Visit: Yes (3) Recurrent falls Status: Acute Assessment and plan: Unable to get a clear history from the patient, due to difficulty hearing and dementia, so unsure if associated with syncope Unimpressive carotid dopplers Echo with severe aortic stenosis, could be contributing Monitoring on telemetry Possibly due to medication misuse. Current Visit: Yes (4) Severe aortic stenosis Status: Acute Assessment and plan: Per echo Cardiology consulted He will have a cardiac cath Agree that this "bone cancer" needs to be figured out. OSH from [place] and his PCP ordered Current Visit: Yes Hospitalist: Subjective Interval history: No acute events overnight. Patient's sister reports that he was awake most of the night. Seen this morning sitting in the chair, alert. Called [facility] in [place] to get his medication list. Exam - Constitutional Vitals: Period Temp Pulse Resp BP Sys/Delgadillo Pulse Ox Last 24 Hr 97.3 F-99.3 F 67-89 19-20 109-131/57-75 94-98 General appearance: under weight - Head Head exam: Present: normocephalic, atraumatic - Eye Eye exam: Present: EOMI Pupils: Present: SHARLA - ENT ENT exam: Present: normal exam - Neck Neck exam: Present: normal inspection - Respiratory Respiratory exam: Present: clear to auscultation bilaterally. Absent: rhonchi, wheezes - Cardiovascular Cardiovascular exam: Present: regular rate and rhythm - GI/Abdominal GI/Abdominal exam: Present: normal bowel sounds, soft. Absent: tenderness - Extremities Exam Extremities exam: Present: normal inspection - Back Exam Back exam: Present: normal inspection - Neurological Exam Neurological exam: Present: alert, oriented X3 - Psychiatric Psychiatric exam: Present: normal affect, normal mood - Skin Skin exam: Present: warm, intact Results - Labs CBC & BMP: 03/08/17 04:42 03/08/17 04:42
--- NOTE | 2017-03-08 15:35 | Case Mgmt Physician Query Form ---
TB Signs and Symptoms Screening ([place]) INSTRUCTIONS: To be completed annually on residents/staff with a significant Tuberculin Skin Test (TST) upon admission/hire or a prior significant TST. To be completed on all staff at hire. Please respond to each listed symptom with an (X) in either the "YES" or "NO" box. Do you currently have any of the following symptoms: YES NO ( ) (x ) A cough If yes, is it: ( ) Productive ( ) Non- productive ( ) (x ) Hemoptysis (spitting up blood) ( ) (x ) Chest pains ( ) (x ) Weight Loss ( ) (x ) Fever ( ) (x ) Night Sweats ( ) (x ) Weakness ( ) (x ) Loss of Appetite ( ) (x ) Difficulty Breathing If you answered YES" to any of the above questions, how long have symptoms been present? Comments: TIERRA
[2017-03-08] MEDS: ENOXAPARIN 40 MG/0.4 ML SYRINGE SUBCUT SCH (16:35)
[2017-03-08] MEDS: POTASSIUM CHLORIDE RIDER 10 MEQ in PREMIX 1 EACH IV SCH ×2 (16:36→18:47)
[2017-03-08] MEDS: GABAPENTIN 400 MG CAPSULE PO SCH (20:50)
[2017-03-08] MEDS: AMITRIPTYLINE 10 MG TABLET PO SCH (20:51)
[2017-03-08] MEDS ORDERED: AMITRIPTYLINE 25 MG TABLET PO SCH (21:00)
[2017-03-09] MEDS: ENOXAPARIN 40 MG/0.4 ML SYRINGE SUBCUT SCH ×2 (00:41→18:12)
[2017-03-09 06:24] LABS: Basophils % 0.7 % (0.0-0.8); Eosinophils # 0.2 10*3/uL (0.0-0.87); Eosinophils % 4.1 % (0.00-10.9); Hematocrit 37.4 VOL% (42.0-52.0); Hemoglobin 12.7 GM/DL (14.0-18.0); Immature Granulocytes % 0.2 %; Immature Granulocytes Absolute 0.01 #; Lymphocytes # 1.7 10*3/uL (1.4-4.0); Lymphocytes % 28.8 % (21.2-54.2); Mean Corpuscular Hemoglobin 31 PG (27-34); Mean Corpuscular Volume 91.2 FL (87-102); Mean Platelet Volume 9.9 FL (9.6-12.0); Monocytes # 0.5 10*3/uL (0.11-0.8); Neutrophils # 3.4 10*3/uL (1.4-7.4); Neutrophils % 58.2 % (38.7-73.9); Platelet Count 296 T/CUMM (130-400); Red Cell Distribution Width 12.1 % (9.3-17.3); White Blood Count 5.9 T/CUMM (4-12)
[2017-03-09 06:58] LABS: Calcium 8.9 MG/DL (8.5-10.1); Magnesium 2.1 MG/DL (1.8-2.4); Potassium 3.7 MMOL/L (3.5-5.1)
[2017-03-09] MEDS ORDERED: VERAPAMIL 5 MG/2 ML VIAL ONE (07:03)
[2017-03-09] MEDS ORDERED: NITROGLYCERIN DRIP 50 MG/250 ML BOTTLE IV ONE (07:03)
[2017-03-09] MEDS ORDERED: HEPARIN/NACL 0.9% 2 UNITS/ML 1,000 ML IV ONE (07:03)
[2017-03-09] MEDS ORDERED: LIDOCAINE 1% 20 ML VIAL ONE (07:03)
--- NOTE | 2017-03-09 07:49 | EKG Report ---
Stationary ECG Study [facility] Test Date: 03/09/2017 7:48:44 AM Pat Name: ANNABELLE DUMONT Department: Room: 421 Gender: M Veneer Sawyer: FABIO : 1950 Requested by: Carol Mccarthy Order Number: [id number] Reading MD: KATARINA MCCLURE Intervals [place] Rate: 70 P: 60 [place]: 181 QRS: 48 QRSD: 82 T: 67 QT: 362 QTc: 383 Interpretive Statements SINUS RHYTHM WITH OCCASIONAL ECTOPIC PREMATURE COMPLEXES Electronically Signed On 03-10-17 14:50:25 CDT by KATARINA MCCLURE [email or web address]
[2017-03-09] MEDS ORDERED: HYDROmorphone 2 MG/1 ML VIAL ONE (08:29)
[2017-03-09] MEDS ORDERED: MIDAZOLAM 2 MG/2 ML VIAL ONE (08:29)
[2017-03-09] MEDS ORDERED: diphenhydrAMINE CAP 25 MG CAPSULE PO ONE (08:30)
[2017-03-09] MEDS ORDERED: DIAZEPAM 5 MG TABLET PO ONE (08:30)
[2017-03-09] MEDS: GABAPENTIN 400 MG CAPSULE PO SCH ×2 (08:38→21:22)
[2017-03-09] MEDS ORDERED: ENOXAPARIN 60 MG/0.6 ML SYRINGE ONE (08:39)
[2017-03-09] MEDS ORDERED: predniSONE 20 MG TABLET PO SCH (09:00)
[2017-03-09] MEDS ORDERED: predniSONE 10 MG TABLET PO SCH (09:00)
--- NOTE | 2017-03-09 09:04 | Cardiac Catheterization ---
Date of Procedure:: 03/09/17 Pre-op Diagnosis: Severe aortic stenosis Post-op diagnosis: same Procedure: CLINICAL HISTORY: The patient has severe aortic stenosis with syncopal spells. He is undergoing cardiac catheterization for definitive coronary artery assessment prior to potential heart valve replacement surgery. PROCEDURES PERFORMED: 1. Right radial percutaneous arteriotomy 2. Attempted left heart catheterization but we were unable to cross the valve secondary to severe aortic stenosis 3. Resting hemodynamics 4. Coronary arteriography 5. Hemoband placement DESCRIPTION OF PROCEDURE: After obtaining informed consent, the patient was taken to the clinical laboratory technologist, prepped and draped in the usual sterile manner. We accessed the right radial artery using modified Seldinger technique in the usual fashion. We placed a 6-Kinyarwanda slim sheath without difficulty. We then used a Tig catheter to engage the right coronary and left main coronary arteries to perform angiography in multiple orthogonal views. There were no problems or complications during the procedure. We then used an angled pigtail catheter to attempt to perform a left heart catheterization with left ventriculogram but we were unable to cross the valve secondary to severe aortic stenosis. After removing the catheter, we placed a HemoBand and removed the sheath without difficulty. There were no problems during the case. HEMODYNAMICS: Please see the accompanying data sheet. CORONARIES: The left main coronary artery is a moderate-sized vessel which trifurcates into the left anterior descending left circumflex and ramus intermedius branches. The left main coronary artery is angiographically free of significant obstructive disease. The left circumflex coronary artery is a moderate-sized vessel which gives off a couple of small proximal obtuse marginal branches and a moderate to large third obtuse marginal branch. The left circumflex coronary artery instrumentation are angiographically free of significant obstructive disease. The left anterior descending is a moderate-sized vessel which gives off a moderate-sized diagonal branch proximally and a second moderate size diagonal in its mid segment.. There is a stenosis of around 50% in the mid left anterior descending coronary artery which does not appear to be flow-limiting. Otherwise the vessel and its tributaries are angiographically free of significant obstructive disease. The right coronary artery is a moderate-sized vessel which gives off the posterior descending artery and a posterior lateral system. The right coronary artery is angiographically free of significant obstructive disease. IMPRESSION: 1. Severe aortic stenosis identified on echocardiogram with a mean gradient of approximately 48 mmHg and a valve area of approximately 0.7 cm. 2. There is moderate disease in the mid left anterior descending coronary artery which I do not think needs revascularization at this time. 3. Left ventricular ejection fraction is known to be normal by echocardiogram. PLAN: The patient has severe symptomatic aortic stenosis and needs an aortic valve replacement. I discussed the case with Dr. Leblanc today who is going to evaluate the patient for surgery. At this point I do not think he needs revascularization. Surgeon / Physician: Fabio Youssef - Medications / Follow-up
[2017-03-09] MEDS ORDERED: ACETAMINOPHEN 325 MG TABLET PO PRN (11:28)
--- NOTE | 2017-03-09 11:32 | Cardiothoracic Progress Note ---
Cardiothoracic Subjective Interval history: Patient is a 67-year-old man who presents with symptoms of increasing shortness of breath over the past 6 months with some episodes of chest discomfort. Echocardiogram revealed severe aortic stenosis with an aortic valve area of 0.7 cm. He also has what may be mild dementia and a severe degree of hearing loss. He underwent cardiac catheterization today which confirms a diagnosis of aortic stenosis but also shows that the patient has no significant obstructive coronary disease. He has been referred for consideration of aortic valve replacement and I think that he is a reasonable candidate for this procedure although his dementia and hearing loss may make his postoperative course somewhat more challenging. I have tentatively schedule surgery for Tuesday and I will discuss this further with patient's sister who apparently has power of tail board worker and decision making process for the patient. Exam (Progress Note) - Constitutional Vitals: Period Temp Pulse Resp BP Sys/Delgadillo Pulse Ox Last 24 Hr 97 F-99.3 F 71-81 18-22 127-148/61-76 96-98 Result/EKG - Labs CBC & BMP: 03/09/17 05:30 03/09/17 05:30 Labs: Laboratory Results - last 24 hr 03/09/17 03/09/17 03/09/17 05:30 05:30 05:30 WBC 5.9 RBC 4.10 Hgb 12.7 L Hct 37.4 L MCV 91.2 MCH 31 MCHC 34.0 RDW 12.1 Plt Count 296 MPV 9.9 Neut % (Auto) 58.2 Lymph % (Auto) 28.8 [place] % (Auto) 8.0 Eos % (Auto) 4.1 Baso % (Auto) 0.7 Neut # (Auto) 3.4 Lymph # (Auto) 1.7 [place] # (Auto) 0.5 Eos # (Auto) 0.2 Baso # (Auto) 0.0 Immature Gran % 0.2 Nucleated RBC % 0.0 Immature Gran # 0.01 Nucleated RBCs # 0.00 INR 1.0 PT Patient/Control Mix 11.0 Sodium 143 Potassium 3.7 Chloride 106 Carbon Dioxide 28 Anion Gap 12.7 BUN 6 L Creatinine 0.90 GFR Calculation 85 BUN/Creatinine Ratio 6.00 Glucose 96 Calculated Osmolality 282.0 Calcium 8.9 Magnesium 2.1
[2017-03-09] MEDS: oxyCODONE IR 5 MG TABLET PO PRN ×2 (12:36→21:22)
--- NOTE | 2017-03-09 14:32 | Hospitalist Progress Note ---
Assessment and Plan (1) Acute kidney injury Status: Resolved Assessment and plan: Creatinine of 1.6 on admission Creatinine down to normal after gentle hydration overnight IV fluids discontinued 03/07 Encourage po intake Monitor labs Current Visit: Yes (2) Altered mental status Status: Resolved Assessment and plan: Improved Patient is alert Family reports that patient does have dementia Mental status changes possibly due to over medication Patient was taking his medications on his own, inappropriately Current Visit: Yes (3) Recurrent falls Status: Acute Assessment and plan: Unable to get a clear history from the patient, due to difficulty hearing and dementia, so unsure if associated with syncope Unimpressive carotid dopplers Echo with severe aortic stenosis, could be contributing Monitoring on telemetry Possibly due to medication misuse. Current Visit: Yes (4) Severe aortic stenosis Status: Acute Assessment and plan: Per echo Cardiology consulted cardiac cath 03/[address] surgery has been consulted, tentatively scheduled for aortic valve replacement Tuesday Current Visit: Yes Hospitalist: Subjective Interval history: No acute events overnight. Patient reports to me that his pain is better. Exam - Constitutional Vitals: Period Temp Pulse Resp BP Sys/Delgadillo Pulse Ox Last 24 Hr 97 F-99.3 F 71-81 18-22 117-148/61-76 96-98 General appearance: under weight - Head Head exam: Present: normocephalic, atraumatic - Eye Eye exam: Present: EOMI Pupils: Present: SHARLA - ENT ENT exam: Present: normal exam - Neck Neck exam: Present: normal inspection - Respiratory Respiratory exam: Present: clear to auscultation bilaterally. Absent: wheezes - Cardiovascular Cardiovascular exam: Present: regular rate and rhythm, systolic murmur - GI/Abdominal GI/Abdominal exam: Present: normal bowel sounds, soft. Absent: tenderness, rebound - Extremities Exam Extremities exam: Present: normal inspection - Back Exam Back exam: Present: normal inspection - Neurological Exam Neurological exam: Present: alert - Psychiatric Psychiatric exam: Present: normal affect, normal mood - Skin Skin exam: Present: warm, intact Results - Labs CBC & BMP: 03/09/17 05:30 03/09/17 05:30
[2017-03-09] MEDS: AMITRIPTYLINE 10 MG TABLET PO SCH (21:21)
[2017-03-10 05:04] LABS: Basophils # 0.1 10*3/uL (0.0-0.2); Basophils % 0.8 % (0.0-0.8); Eosinophils # 0.6 10*3/uL (0.0-0.87); Eosinophils % 7.8 % (0.00-10.9); Hematocrit 39.7 VOL% (42.0-52.0); Hemoglobin 13.6 GM/DL (14.0-18.0); Immature Granulocytes % 0.3 %; Immature Granulocytes Absolute 0.02 #; Lymphocytes # 1.8 10*3/uL (1.4-4.0); Lymphocytes % 25.4 % (21.2-54.2); Mean Corpuscular HGB Conc 34.3 GM/DL (32-36); Mean Corpuscular Hemoglobin 32 PG (27-34); Mean Corpuscular Volume 93.4 FL (87-102); Mean Platelet Volume 10.1 FL (9.6-12.0); Monocytes # 0.6 10*3/uL (0.11-0.8); Monocytes % 7.8 % (1.7-12.7); Neutrophils # 4.1 10*3/uL (1.4-7.4); Neutrophils % 57.9 % (38.7-73.9); Platelet Count 293 T/CUMM (130-400); Red Blood Count 4.25 MC/CUMM (3.8-5.5); White Blood Count 7.2 T/CUMM (4-12)
[2017-03-10 05:22] LABS: Calcium 9.1 MG/DL (8.5-10.1); Magnesium 2.1 MG/DL (1.8-2.4); Osmolality,Calculated 275.5 MOS/KG (273-304); Potassium 4.5 MMOL/L (3.5-5.1)
[2017-03-10] MEDS ORDERED: GLUCAGON 1 MG VIAL IM PRN (09:09)
[2017-03-10] MEDS ORDERED: DEXTROSE 50% 25 GM/50 ML VIAL IV PRN (09:09)
[2017-03-10] MEDS: GABAPENTIN 400 MG CAPSULE PO SCH ×2 (09:10→21:35)
--- NOTE | 2017-03-10 09:13 | Cardiothoracic Progress Note ---
Cardiothoracic Subjective Interval history: Patient is ready for surgery in the morning. Exam (Progress Note) - Constitutional Vitals: Period Temp Pulse Resp BP Sys/Delgadillo Pulse Ox Last 24 Hr 97.4 F-100.3 F 62-85 16-20 96-125/57-71 95-100 Result/EKG - Labs CBC & BMP: 03/10/17 04:16 03/10/17 04:16 Labs: Laboratory Results - last 24 hr 03/10/17 03/10/17 03/10/17 04:16 04:16 07:46 WBC 7.2 RBC 4.25 Hgb 13.6 L Hct 39.7 L MCV 93.4 MCH 32 MCHC 34.3 RDW 12.0 Plt Count 293 MPV 10.1 Neut % (Auto) 57.9 Lymph % (Auto) 25.4 [place] % (Auto) 7.8 Eos % (Auto) 7.8 Baso % (Auto) 0.8 Neut # (Auto) 4.1 Lymph # (Auto) 1.8 [place] # (Auto) 0.6 Eos # (Auto) 0.6 Baso # (Auto) 0.1 Immature Gran % 0.3 Nucleated RBC % 0.0 Immature Gran # 0.02 Nucleated RBCs # 0.00 Sodium 139 Potassium 4.5 Chloride 102 Carbon Dioxide 26 Anion Gap 15.5 H BUN 11 Creatinine 0.90 GFR Calculation 85 BUN/Creatinine Ratio 12.00 Glucose 94 POC Glucose 88 Calculated Osmolality 275.5 Calcium 9.1 Magnesium 2.1 Quality Measures - VTE Contraindication to Pharmacological VTE Prophylaxis: High Risk of Bleeding
[2017-03-10] MEDS: oxyCODONE IR 5 MG TABLET PO PRN ×2 (09:41→19:39)
[2017-03-10 09:46] LABS: ABG Base Excess 0.9 MMOL/L (-2.5-2.5); ABG HCO3 24.5 MMOL/L (20-26); ABG Oxygen Saturation 98.1 % (95-100); ABG PCO2 35.9 MM HG (35-48); ABG PH 7.452 (7.35-7.45); ABG PO2 106.4 MM HG (80-95); ABG TCO2 25.6 MMOL/L (23-27)
--- NOTE | 2017-03-10 10:49 | Cardiology Progress Note ---
Assessment and Plan (1) Severe aortic stenosis Status: Acute Assessment and plan: See plan of care listed below. Current Visit: Yes (2) Dementia Status: Chronic Assessment and plan: See plan of care listed below. Current Visit: Yes (3) Hard of hearing Status: Chronic Assessment and plan: See plan of care listed below. Current Visit: Yes (4) Recurrent falls Status: Acute Assessment and plan: See plan of care listed below. Current Visit: Yes (5) Syncope Status: Acute Assessment and plan: See plan of care listed below. 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 Youssef (new) SUMMARY: Mr. Cardenas, 67 year old male who has never been seen by burglar alarm assembler previous to this admission. He has a past medical history of dementia, rheumatoid arthritis, bone cancer, multiple sclerosis, heart murmur and hard of hearing. Patient presented to [facility] for further evaluation of generalized weakness, syncope and falls. Echocardiogram was performed which revealed moderate concentric left ventricular hypertrophy, ejection fraction of 55%. Grade 1 diastolic dysfunction with mild mitral valve regurgitation. Severe aortic stenosis with estimated BETO of 0.69 cm. Subsequently, cardiology was consulted to further evaluate patient's severe aortic stenosis. Patient underwent cardiac catheterization in order to assess his coronary anatomy and to help plan for the best timing and approach for his possible need for valve replacement. Patient underwent cardiac catheterization per Dr. Youssef March 09, 2017 with the following impressions noted: IMPRESSION: 1. Severe aortic stenosis identified on echocardiogram with a mean gradient of approximately 48 mmHg and a valve area of approximately 0.7 cm. 2. There is moderate disease in the mid left anterior descending coronary artery which I do not think needs revascularization at this time. 3. Left ventricular ejection fraction is known to be normal by echocardiogram. PLAN: The patient has severe symptomatic aortic stenosis and needs an aortic valve replacement. I discussed the case with Dr. Leblanc today who is going to evaluate the patient for surgery. At this point I do not think he needs revascularization. March 10, 2017 UPDATE: Patient was then seen in consultation by Dr. Leblanc. Dr. Leblanc feels that patient is a reasonable candidate for aortic valve replacement and has tentatively scheduled surgery for tomorrow morning. Patient is doing well this morning and is without complaints. He denies chest pain, heaviness and tightness as well as shortness of breath. Right groin is soft without bleeding, hematoma and bruit. Distal pulses present. Vital signs are stable. Telemetry has been reviewed, patient has been in normal sinus rhythm without any overt arrhythmias or ectopy noted. Labs have been reviewed and are overall unremarkable. Assessment/plan: 1. SEVERE AORTIC STENOSIS - Plan for aortic valve replacement tomorrow per Dr. Leblanc. N.p.o. after midnight. 2. SYNCOPE - Most likely secondary to patient's severe aortic stenosis. Plan for aortic valve replacement tomorrow. 3. DEMENTIA - Stable at present. 4. RECURRENT FALLS - Many of these may actually be related to chronic narcotic use. However, he does have severe aortic stenosis which may also be a factor. 4. HARD OF HEARING - Chronic. Further plan and addendum to follow per Dr. Youssef. Exam (Progress Note) - Constitutional Vitals: Period Temp Pulse Resp BP Sys/Delgadillo Pulse Ox Last 24 Hr 97.4 F-100.3 F 69-85 16-20 96-125/57-70 95-100 Exam: General: Appears well with no apparent distress. Pleasant and cooperative. Appears comfortable. Hard of hearing. HEENT: PERRL, normocephalic, atraumatic. Mucous membranes moist. No jaundice noted. Conjunctiva moist and clear, sclerae anicteric Neck: No JVD/HJR, no thyromegaly or lymphadenopathy noted. No carotid bruit appreciated Cardiac: Regular rate and rhythm. Systolic murmur consistent with aortic stenosis. Lungs: Clear to auscultation without accessory muscle use to assist the respiratory pattern. Requiring oxygen intermittently. Abdomen: Soft, bowel sounds normoactive. Nontender and nondistended. No abdominal bruit or thrill noted. No masses noted. Extremities: No clubbing, cyanosis noted. No edema noted. Upper extremity pulses 2+. Lower extremity pulses 2+. Capillary refill less than 3 seconds. Her groin is soft without bleeding, hematoma and bruit. Distal pulses present. Skin: No unusual lesions or rashes. No skin breakdown appreciated. Neuro: Awake, alert and oriented 3. Moves all extremities well without hemiparesis or paralysis. No essential tremor is appreciated. Result/EKG - Labs CBC & BMP: 03/10/17 04:16 03/10/17 04:16 Lab Results: I have reviewed the past 24 hour labs Labs: Laboratory Results - last 24 hr 03/10/17 03/10/17 03/10/17 04:14 04:16 04:16 WBC 7.2 RBC 4.25 Hgb 13.6 L Hct 39.7 L MCV 93.4 MCH 32 MCHC 34.3 RDW 12.0 Plt Count 293 MPV 10.1 Neut % (Auto) 57.9 Lymph % (Auto) 25.4 [place] % (Auto) 7.8 Eos % (Auto) 7.8 Baso % (Auto) 0.8 Neut # (Auto) 4.1 Lymph # (Auto) 1.8 [place] # (Auto) 0.6 Eos # (Auto) 0.6 Baso # (Auto) 0.1 Immature Gran % 0.3 Nucleated RBC % 0.0 Immature Gran # 0.02 Nucleated RBCs # 0.00 ABG pH ABG pCO2 ABG pO2 ABG HCO3 ABG Total CO2 ABG O2 Saturation ABG Base Excess Sodium 139 Potassium 4.5 Chloride 102 Carbon Dioxide 26 Anion Gap 15.5 H BUN 11 Creatinine 0.90 GFR Calculation 85 BUN/Creatinine Ratio 12.00 Glucose 94 POC Glucose Calculated Osmolality 275.5 Calcium 9.1 Magnesium 2.1 Blood Type O POSITIVE Antibody Screen Negative Crossmatch See Detail 03/10/17 03/10/17 03/10/17 07:46 09:40 Unknown WBC RBC Hgb Hct MCV MCH MCHC RDW Plt Count MPV Neut % (Auto) Lymph % (Auto) [place] % (Auto) Eos % (Auto) Baso % (Auto) Neut # (Auto) Lymph # (Auto) [place] # (Auto) Eos # (Auto) Baso # (Auto) Immature Gran % Nucleated RBC % Immature Gran # Nucleated RBCs # ABG pH 7.452 H ABG pCO2 35.9 ABG pO2 106.4 H ABG HCO3 24.5 ABG Total CO2 25.6 ABG O2 Saturation 98.1 ABG Base Excess 0.9 Sodium Potassium Chloride Carbon Dioxide Anion Gap BUN Creatinine GFR Calculation BUN/Creatinine Ratio Glucose POC Glucose 88 Calculated Osmolality Calcium Magnesium Blood Type O POSITIVE Antibody Screen Crossmatch Quality Measures - VTE Contraindication to Pharmacological VTE Prophylaxis: High Risk of Bleeding
--- NOTE | 2017-03-10 12:40 | Hospitalist Progress Note ---
Assessment and Plan (1) Severe aortic stenosis Status: Acute Assessment and plan: severe aotic stenosis, likely causing falls and altered mental status though medication misuse could also be contributing. For AVR tomorrow. Current Visit: Yes (2) Altered mental status Status: Resolved Current Visit: Yes (3) Recurrent falls Status: Acute Current Visit: Yes (4) Acute kidney injury Status: Resolved Current Visit: Yes Hospitalist: Subjective Interval history: Mr Cardenas is feeling ok today, and he is planning to have surgery tomorrow. Exam - Constitutional Vitals: Period Temp Pulse Resp BP Sys/Delgadillo Pulse Ox Last 24 Hr 97.4 F-100.3 F 69-85 16-20 96-125/57-69 95-100 General appearance: normal weight, no acute distress - Head Head exam: Present: normocephalic, atraumatic - Eye Eye exam: Present: EOMI. Absent: scleral icterus - Respiratory Respiratory exam: Present: clear to auscultation bilaterally - Cardiovascular Cardiovascular exam: Present: regular rate and rhythm, systolic murmur - GI/Abdominal GI/Abdominal exam: Present: normal bowel sounds, soft. Absent: tenderness - Extremities Exam Extremities exam: Absent: edema Results - Labs CBC & BMP: 03/10/17 04:16 03/10/17 04:16 Lab Results: I have reviewed the past 24 hour labs Quality Measures - VTE Contraindication to Pharmacological VTE Prophylaxis: High Risk of Bleeding
--- NOTE | 2017-03-10 16:19 | EKG Report ---
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
[2017-03-10] MEDS: CHLORHEXIDINE 4% SOLN 118 ML BOTTLE TOP SCH ×2 (17:10→21:35)
[2017-03-10] MEDS: AMITRIPTYLINE 10 MG TABLET PO SCH (21:35)
[2017-03-10] MEDS: CHLORHEXIDINE 0.12% ORAL RINSE 60 ML BOTTLE SWISH/SPIT SCH (21:41)
[2017-03-11] MEDS ORDERED: VANCOMYCIN 1,000 MG VIAL ONE (04:39)
[2017-03-11 04:53] LABS: Basophils % 0.5 % (0.0-0.8); Eosinophils # 0.6 10*3/uL (0.0-0.87); Eosinophils % 7.7 % (0.00-10.9); Hematocrit 36.7 VOL% (42.0-52.0); Hemoglobin 12.6 GM/DL (14.0-18.0); Immature Granulocytes % 0.4 %; Immature Granulocytes Absolute 0.03 #; Lymphocytes # 1.6 10*3/uL (1.4-4.0); Lymphocytes % 21.7 % (21.2-54.2); Mean Corpuscular HGB Conc 34.3 GM/DL (32-36); Mean Corpuscular Hemoglobin 32 PG (27-34); Mean Platelet Volume 9.8 FL (9.6-12.0); Monocytes # 0.7 10*3/uL (0.11-0.8); Neutrophils # 4.5 10*3/uL (1.4-7.4); Neutrophils % 60.7 % (38.7-73.9); Platelet Count 286 T/CUMM (130-400); Red Blood Count 3.99 MC/CUMM (3.8-5.5); Red Cell Distribution Width 11.9 % (9.3-17.3); White Blood Count 7.4 T/CUMM (4-12)
[2017-03-11] MEDS: CHLORHEXIDINE 4% SOLN 118 ML BOTTLE TOP SCH ×2 (04:55→10:43)
[2017-03-11 05:30] LABS: Calcium 8.8 MG/DL (8.5-10.1); Magnesium 2.1 MG/DL (1.8-2.4); Osmolality,Calculated 278.4 MOS/KG (273-304); Potassium 3.8 MMOL/L (3.5-5.1)
[2017-03-11] MEDS ORDERED: FAMOTIDINE 20 MG TABLET PO ONE ×2 (05:30→06:00)
[2017-03-11] MEDS ORDERED: LORazepam 1 MG TABLET PO ONE (05:30)
[2017-03-11] MEDS: SODIUM CHLORIDE 0.9% 1,000 ML IV SCH ×2 (05:44→10:44)
[2017-03-11] MEDS ORDERED: CEFUROXIME INJ 1,500 MG in SODIUM CHLORIDE 0.9% 100 ML IV ONE (06:00)
[2017-03-11] MEDS ORDERED: VECURONIUM 10 MG VIAL IV ONE (06:41)
[2017-03-11] MEDS ORDERED: MINERAL OIL/PETROLATUM OPH OINT 3.5 GM TUBE ONE (06:41)
[2017-03-11] MEDS ORDERED: CALCIUM CHLORIDE 1,000 MG/10 ML SYRINGE IV ONE (06:41)
[2017-03-11] MEDS ORDERED: ESMOLOL 100 MG/10 ML VIAL IV ONE (06:41)
[2017-03-11] MEDS ORDERED: ETOMIDATE 20 MG/10 ML VIAL IV ONE (06:41)
[2017-03-11] MEDS ORDERED: AMINOPHYLLINE 500 MG/20 ML VIAL IV ONE (06:41)
[2017-03-11 07:38] LABS: ABG Base Excess 0.3 MMOL/L (-2.5-2.5); ABG HCO3 24.1 MMOL/L (20-26); ABG Oxygen Saturation 99.5 % (95-100); ABG PCO2 36.3 MM HG (35-48); ABG TCO2 25.2 MMOL/L (23-27); Glucose Heart Surgery 115 MG/DL (74-106); Hemoglobin Heart Surgery 12.4 G/DL (14.0-18.0); Ionized Calcium Arterial 1.15 MMOL/L (1.21-1.46); PCO2 Patient Temp Arterial 36.3 MMHG; PO2 Patient Temp Arterial 542.7 MM HG; Patient Temperature 37 CELCIUS; Potassium Heart/CVR 3.4 MMOL/L (3.5-5.1); Sodium Heart/CVR 137 MMOL/L (135-145)
[2017-03-11 07:39] LABS: ABG PO2 542.7 MM HG (80-95)
[2017-03-11 07:50] LABS: Apearance,Urine CLEAR (Clear); Bilirubin,Urine Negative (Negative); Blood, Urine Negative (Negative); Glucose,Urine (UA) Negative (Negative); Ketones,Urine Negative (Negative); Nitrite,Urine Negative (Negative); Protein,Urine Negative; RBC,Urine 2 /HPF (0-4); Urine Color Yellow (Yellow); Urine Specific Gravity 1.008 (1.001-1.035); Urine Urobilinogen < 2.0 EU/DL (0.2-1.0); WBC,Urine 7 /HPF (0-6)
[2017-03-11 08:20] LABS: Hematocrit Heart Surgery 23.1 PERCENT (42-52); Hemoglobin Heart Surgery 7.4 G/DL (14.0-18.0); PCO2 Patient Temp Venous 36.2 MM HG; PH Patient Temp Venous 7.456; PO2 Patient Temp Venous 29.5 MM HG; Potassium Heart/CVR 4.3 MMOL/L (3.5-5.1); VBG Base Excess 1.9 MEQ/L (0-4); VBG HCO3 25.8 MEQ/L (24-28); VBG Oxygen Saturation 70.8 %; VBG PCO2 41.9 MMHG (41-51); VBG PH 7.412; VBG PO2 36.4 MMHG (17-40)
[2017-03-11 08:46] LABS: Hematocrit Heart Surgery 26.7 PERCENT (42-52); Hemoglobin Heart Surgery 8.6 G/DL (14.0-18.0); PCO2 Patient Temp Venous 34.5 MM HG; PH Patient Temp Venous 7.472; Potassium Heart/CVR 3.8 MMOL/L (3.5-5.1); VBG HCO3 25.9 MEQ/L (24-28); VBG Oxygen Saturation 76.8 %; VBG PCO2 41.9 MMHG (41-51); VBG PH 7.413
[2017-03-11] MEDS ORDERED: PHENYLEPHRINE DRIP 40 MG/250 ML PREMIX IV ONE (08:52)
[2017-03-11] MEDS ORDERED: NITROPRUSSIDE 50 MG/2 ML VIAL ONE (08:52)
[2017-03-11] MEDS ORDERED: POTASSIUM CHLORIDE RIDER 100 ML IV ONE (08:52)
[2017-03-11 09:44] LABS: Hemoglobin Heart Surgery 9.8 G/DL (14.0-18.0); PCO2 Patient Temp Venous 35.9 MM HG; PH Patient Temp Venous 7.456; PO2 Patient Temp Venous 505.1 MM HG; Potassium Heart/CVR 3.7 MMOL/L (3.5-5.1); VBG HCO3 24.7 MEQ/L (24-28); VBG PCO2 35.9 MMHG (41-51); VBG PH 7.456
[2017-03-11 09:45] LABS: VBG PO2 505.1 MMHG (17-40)
[2017-03-11] MEDS ORDERED: MAGNESIUM SULF RIDER 4 GM in PREMIX 1 EACH IV PRN (10:24)
[2017-03-11] MEDS ORDERED: POTASSIUM CHLORIDE RIDER 10 MEQ in PREMIX 1 EACH IV PRN (10:24)
[2017-03-11] MEDS ORDERED: ACETAMINOPHEN 650 MG SUPP RECTAL PRN (10:24)
[2017-03-11] MEDS ORDERED: VECURONIUM 10 MG VIAL IV PRN ×2 (10:24)
[2017-03-11] MEDS ORDERED: NITROPRUSSIDE 100 MG in DEXTROSE 5% 250 ML IV PRN (10:24)
[2017-03-11] MEDS ORDERED: PHENYLEPHRINE DRIP 40 MG/250 ML PREMIX IV PRN (10:24)
[2017-03-11] MEDS ORDERED: ONDANSETRON 4 MG/2 ML VIAL IV PRN (10:24)
[2017-03-11] MEDS ORDERED: INSULIN REGULAR 100 UNIT/ML IV PRN (10:24)
[2017-03-11] MEDS ORDERED: MORPHINE 2 MG/1 ML SYRINGE IV PRN (10:24)
[2017-03-11] MEDS ORDERED: CALCIUM CHLORIDE 1,000 MG/10 ML SYRINGE IV PRN (10:24)
[2017-03-11] MEDS ORDERED: DEXTROSE 50% 25 GM/50 ML VIAL IV PRN ×2 (10:24)
[2017-03-11] MEDS ORDERED: MIDAZOLAM 2 MG/2 ML VIAL IV PRN (10:24)
[2017-03-11] MEDS ORDERED: LACTATED RINGERS 250 ML IV PRN (10:24)
[2017-03-11] MEDS ORDERED: MAGNESIUM SULF RIDER 2 GM in PREMIX 1 EACH IV PRN (10:24)
[2017-03-11] MEDS ORDERED: INSULIN REGULAR 100 UNIT/ML IV ONE (10:24)
[2017-03-11] MEDS ORDERED: HEPARIN 10,000 UNIT/10 ML VIAL ONE (10:29)
[2017-03-11] MEDS ORDERED: ALBUMIN 25% 25 GM/100 ML VIAL IV ONE (10:29)
[2017-03-11] MEDS ORDERED: PROTAMINE SULFATE 250 MG/25 ML VIAL IV ONE (10:29)
[2017-03-11] MEDS ORDERED: SODIUM BICARBONATE 50 MEQ/50 ML VIAL IV ONE (10:29)
[2017-03-11] MEDS ORDERED: DEXTROSE 5% KCL 20 MEQ 20 MEQ/1,000 ML BAG IV ONE (10:29)
[2017-03-11] MEDS ORDERED: PHENYLEPHRINE DRIP 20 MG/250 ML PREMIX IV ONE (10:29)
[2017-03-11] MEDS ORDERED: MAGNESIUM SULFATE 1 GM/2 ML VIAL ONE (10:29)
[2017-03-11] MEDS ORDERED: SODIUM CHLORIDE 0.45% 1,000 ML IV SCH ×2 (10:30)
[2017-03-11] MEDS ORDERED: methylPREDNISolone SOD SUC 1,000 MG/8 ML VIAL ONE (10:30)
[2017-03-11] MEDS ORDERED: FUROSEMIDE 20 MG/2 ML VIAL ONE (10:30)
[2017-03-11] MEDS ORDERED: INSULIN REGULAR DRIP 100 ML IV SCH (10:30)
[2017-03-11] MEDS ORDERED: MANNITOL 12.5 GM/50 ML VIAL IV ONE (10:30)
--- NOTE | 2017-03-11 10:31 | Operative Note ---
Date of procedure: 03/11/17 Pre-op diagnosis: Aortic stenosis Post-op diagnosis: same Procedure: Procedure: Aortic valve replacement with a 23 mm pericardial prosthesis. Findings: Patient is a 65-year-old man who presented with chest discomfort and shortness of breath and cardiac catheterization revealing severe aortic stenosis confirmed by echocardiography. Patient was referred for aortic valve replacement and and time of surgery a severely calcified and stenotic aortic valve which was tricuspid in nature was found and removed and replaced with a 23 mm pericardial prosthesis. Patient tolerated procedure well and was returned to recovery in satisfactory condition. Procedure: Patient was brought to the operating room placed to the operating table in the supine position. After satisfactory induction of general anesthesia the chest abdomen and legs were prepped and draped in sterile fashion. Standard sternotomy incision was made and the sternum was divided and the heart suspended in a pericardial cradle. The patient was prepared for cardiopulmonary bypass with systemic heparinization cannulation of the ascending aorta and right atrium. Cardiopulmonary bypass was begun and aorta was crossclamped and the heart was arrested with cardioplegia solution injected into the aortic root. Heart was protected with topical saline slush during the period of crossclamping. The aorta was opened with a transverse aortotomy and the above-noted findings were discovered. The aortic valve was removed and the aortic annulus rimmed with horizontal mattress sutures of 3-0 Ethibond. These were passed through the sewing ring of a 23 mm pericardial prosthesis which was lowered and tied into place. Aortotomy was closed with running 4-0 Prolene. Patient was weaned from cardiopulmonary bypass without difficulty after unclamping the aorta. The operative field was inspected for hemostasis and the heparin effect was reversed with protamine. Decannulation was carried out in a defects in the ascending aorta and right atrium closed with 3-0 Prolene. Operative field was inspected for hemostasis and this was considered adequate incision was closed with interrupted stainless steel wire and the sternum and 0 Monopril in the presternal fascia. Skin was closed with 3-0 subcuticular Monocryl. 2 chest tubes were left in the anterior mediastinum and brought out through separate stab incisions. Sterile dressings were applied and the patient was returned to recovery in satisfactory condition. Anesthesia: TANA Surgeon / Physician: Cameron Leblanc Estimated blood loss: other (Unable to determine because of cardiopulmonary bypass) Condition: stable Disposition: ICU Results - Labs CBC & BMP: 03/11/17 07:30 03/11/17 04:37 Discharge Plan - Discharge Medications No Action Nabumetone [Relafen] 750 mg PO BID clonazePAM [Klonopin] 1 mg PO BID PRN PRN Reason: Anxiety Acetamin/Codeine 300-30 Tab [Tylenol/Codeine #3] 1 tablet PO Q6H PRN PRN Reason: Pain Tizanidine HCl 4 mg PO Q8H PRN PRN Reason: Pain Gabapentin Cap/Tab [Neurontin Cap/Tab] 800 mg PO BID predniSONE TAB [PredniSONE] 40 mg PO DAILY Baclofen Tab [Lioresal] 10 mg PO TID Amitriptyline HCl 25 mg PO BEDTIME - Follow Up or Referral - Forms/Instructions
[2017-03-11] MEDS ORDERED: SODIUM CHLORIDE 0.9% 1,000 ML IV ONE (10:32)
[2017-03-11] MEDS ORDERED: SEVOFLURANE 1 UNIT/15 MINUTE INH ONE (10:32)
[2017-03-11] MEDS ORDERED: SUFentanil 250 MCG/5 ML AMP ONE (10:32)
[2017-03-11] MEDS ORDERED: ePHEDrine 50 MG/ML AMP ONE (10:32)
[2017-03-11] MEDS ORDERED: SODIUM CHLORIDE 0.9% 250 ML IV ONE (10:32)
[2017-03-11] MEDS ORDERED: PROTAMINE SULFATE 50 MG/5 ML VIAL IV ONE ×2 (10:34→10:37)
[2017-03-11] MEDS: GABAPENTIN 400 MG CAPSULE PO SCH (10:43)
[2017-03-11] MEDS: CHLORHEXIDINE 0.12% ORAL RINSE 60 ML BOTTLE SWISH/SPIT SCH (10:44)
[2017-03-11 11:17] LABS: ABG Base Excess 0.3 MMOL/L (-2.5-2.5); ABG HCO3 26.5 MMOL/L (20-26); ABG Oxygen Saturation 98.8 % (95-100); ABG PCO2 50.4 MM HG (35-48); ABG PH 7.339 (7.35-7.45); ABG PO2 209.3 MM HG (80-95); ABG TCO2 28.1 MMOL/L (23-27); Glucose Heart Surgery 191 MG/DL (74-106); Hemoglobin Heart Surgery 10.8 G/DL (14.0-18.0); Potassium Heart/CVR 3.7 MMOL/L (3.5-5.1)
[2017-03-11 11:23] LABS: Basophils % 0.2 % (0.0-0.8); Eosinophils # 0.2 10*3/uL (0.0-0.87); Eosinophils % 2.5 % (0.00-10.9); Hematocrit 29.9 VOL% (42.0-52.0); Immature Granulocytes % 0.6 %; Immature Granulocytes Absolute 0.05 #; Lymphocytes # 1.1 10*3/uL (1.4-4.0); Lymphocytes % 12.6 % (21.2-54.2); Mean Corpuscular HGB Conc 34.1 GM/DL (32-36); Mean Corpuscular Hemoglobin 32 PG (27-34); Mean Corpuscular Volume 93.4 FL (87-102); Monocytes # 0.2 10*3/uL (0.11-0.8); Monocytes % 2.9 % (1.7-12.7); Neutrophils # 6.8 10*3/uL (1.4-7.4); Neutrophils % 81.2 % (38.7-73.9); Platelet Count 215 T/CUMM (130-400); Red Cell Distribution Width 11.9 % (9.3-17.3); White Blood Count 8.4 T/CUMM (4-12)
[2017-03-11 11:29] LABS: Hemoglobin 10.2 GM/DL (14.0-18.0)
--- NOTE | 2017-03-11 11:29 | Cardiothoracic Progress Note ---
Cardiothoracic Subjective Interval history: [place]-Braulio catheter placed via the right subclavian vein. Exam (Progress Note) - Constitutional Vitals: Period Temp Pulse Resp BP Sys/Delgadillo Pulse Ox Last 24 Hr 97.9 F-100.5 F 64-92 10-20 101-136/54-74 97-100 Result/EKG - Labs CBC & BMP: 03/11/17 07:30 03/11/17 04:37 Labs: Laboratory Results - last 24 hr 03/10/17 03/11/17 03/11/17 04:14 04:37 04:37 WBC 7.4 RBC 3.99 Hgb 12.6 L Hct 36.7 L MCV 92.0 MCH 32 MCHC 34.3 RDW 11.9 Plt Count 286 MPV 9.8 Neut % (Auto) 60.7 Lymph % (Auto) 21.7 [place] % (Auto) 9.0 Eos % (Auto) 7.7 Baso % (Auto) 0.5 Neut # (Auto) 4.5 Lymph # (Auto) 1.6 [place] # (Auto) 0.7 Eos # (Auto) 0.6 Baso # (Auto) 0.0 Immature Gran % 0.4 Nucleated RBC % 0.0 Immature Gran # 0.03 Nucleated RBCs # 0.00 Patient Temperature ABG pH ABG pH at Pt Temp ABG pCO2 ABG pCO2 at Pt Temp ABG pO2 ABG pO2 at Pt Temp ABG HCO3 ABG Total CO2 ABG O2 Saturation ABG Base Excess ABG Sodium VBG pH VBG pCO2 VBG pO2 VBG HCO3 VBG Total CO2 VBG O2 Saturation VBG Base Excess Hemoglobin Hematocrit Ionized Calcium FiO2 Sodium 140 Potassium 3.8 Chloride 104 Carbon Dioxide 28 Anion Gap 11.8 BUN 13 Creatinine 0.80 GFR Calculation 92 BUN/Creatinine Ratio 16.00 Glucose 100 Calculated Osmolality 278.4 Calcium 8.8 Venous Ioniz Calcium Magnesium 2.1 Urine Color Urine Appearance Urine pH Ur Specific [place] Urine Protein Urine Glucose (UA) Urine Ketones Urine Blood Urine Nitrate Urine Bilirubin Urine Urobilinogen Urine Leukocytes Urine RBC Urine WBC Ur Culture Indicated? Blood Type O POSITIVE Antibody Screen Negative Crossmatch See Detail 03/11/17 03/11/17 03/11/17 07:30 07:30 07:42 WBC RBC Hgb Hct MCV MCH MCHC RDW Plt Count 241 MPV Neut % (Auto) Lymph % (Auto) [place] % (Auto) Eos % (Auto) Baso % (Auto) Neut # (Auto) Lymph # (Auto) [place] # (Auto) Eos # (Auto) Baso # (Auto) Immature Gran % Nucleated RBC % Immature Gran # Nucleated RBCs # Patient Temperature 37 ABG pH 7.440 ABG pH at Pt Temp 7.440 ABG pCO2 36.3 ABG pCO2 at Pt Temp 36.3 ABG pO2 542.7 H ABG pO2 at Pt Temp 542.7 ABG HCO3 24.1 ABG Total CO2 25.2 ABG O2 Saturation 99.5 ABG Base Excess 0.3 ABG Sodium 137 VBG pH VBG pCO2 VBG pO2 VBG HCO3 VBG Total CO2 VBG O2 Saturation VBG Base Excess Hemoglobin 12.4 L Hematocrit 36.0 L Ionized Calcium 1.15 L FiO2 Sodium Potassium 3.4 L Chloride Carbon Dioxide Anion Gap BUN Creatinine GFR Calculation BUN/Creatinine Ratio Glucose 115 H Calculated Osmolality Calcium Venous Ioniz Calcium Magnesium Urine Color Yellow Urine Appearance Clear Urine pH 6.0 Ur Specific [place] 1.008 Urine Protein Negative Urine Glucose (UA) Negative Urine Ketones Negative Urine Blood Negative Urine Nitrate Negative Urine Bilirubin Negative Urine Urobilinogen < 2.0 H Urine Leukocytes Moderate H Urine RBC 2 Urine WBC 7 Ur Culture Indicated? Results to follow Blood Type Antibody Screen Crossmatch 03/11/17 03/11/17 03/11/17 08:17 08:46 09:40 WBC RBC Hgb Hct MCV MCH MCHC RDW Plt Count MPV Neut % (Auto) Lymph % (Auto) [place] % (Auto) Eos % (Auto) Baso % (Auto) Neut # (Auto) Lymph # (Auto) [place] # (Auto) Eos # (Auto) Baso # (Auto) Immature Gran % Nucleated RBC % Immature Gran # Nucleated RBCs # Patient Temperature 34 33 37 ABG pH ABG pH at Pt Temp 7.456 7.472 7.456 ABG pCO2 ABG pCO2 at Pt Temp 36.2 34.5 35.9 ABG pO2 ABG pO2 at Pt Temp 29.5 31.0 505.1 ABG HCO3 ABG Total CO2 ABG O2 Saturation ABG Base Excess ABG Sodium 129 L 134 L 131 L VBG pH 7.412 7.413 7.456 VBG pCO2 41.9 41.9 35.9 L VBG pO2 36.4 41.0 H 505.1 H VBG HCO3 25.8 25.9 24.7 VBG Total CO2 25.2 24.8 25.8 VBG O2 Saturation 70.8 76.8 99.0 VBG Base Excess 1.9 2.0 1.0 Hemoglobin 7.4 L 8.6 L 9.8 L D Hematocrit 23.1 L 26.7 L 29.0 L Ionized Calcium FiO2 80.00 80.00 100.00 Sodium Potassium 4.3 3.8 3.7 Chloride Carbon Dioxide Anion Gap BUN Creatinine GFR Calculation BUN/Creatinine Ratio Glucose 288 H 256 H 210 H Calculated Osmolality Calcium Venous Ioniz Calcium 0.94 L 1.02 L 1.12 Magnesium Urine Color Urine Appearance Urine pH Ur Specific [place] Urine Protein Urine Glucose (UA) Urine Ketones Urine Blood Urine Nitrate Urine Bilirubin Urine Urobilinogen Urine Leukocytes Urine RBC Urine WBC Ur Culture Indicated? Blood Type Antibody Screen Crossmatch 03/11/17 10:33 WBC RBC Hgb Hct MCV MCH MCHC RDW Plt Count MPV Neut % (Auto) Lymph % (Auto) [place] % (Auto) Eos % (Auto) Baso % (Auto) Neut # (Auto) Lymph # (Auto) [place] # (Auto) Eos # (Auto) Baso # (Auto) Immature Gran % Nucleated RBC % Immature Gran # Nucleated RBCs # Patient Temperature ABG pH 7.339 L ABG pH at Pt Temp ABG pCO2 50.4 H ABG pCO2 at Pt Temp ABG pO2 209.3 H ABG pO2 at Pt Temp ABG HCO3 26.5 H ABG Total CO2 28.1 H ABG O2 Saturation 98.8 ABG Base Excess 0.3 ABG Sodium VBG pH VBG pCO2 VBG pO2 VBG HCO3 VBG Total CO2 VBG O2 Saturation VBG Base Excess Hemoglobin 10.8 L Hematocrit 32.0 L Ionized Calcium FiO2 Sodium Potassium 3.7 Chloride Carbon Dioxide Anion Gap BUN Creatinine GFR Calculation BUN/Creatinine Ratio Glucose 191 H Calculated Osmolality Calcium Venous Ioniz Calcium Magnesium Urine Color Urine Appearance Urine pH Ur Specific [place] Urine Protein Urine Glucose (UA) Urine Ketones Urine Blood Urine Nitrate Urine Bilirubin Urine Urobilinogen Urine Leukocytes Urine RBC Urine WBC Ur Culture Indicated? Blood Type Antibody Screen Crossmatch Quality Measures - VTE Contraindication to Pharmacological VTE Prophylaxis: High Risk of Bleeding
[2017-03-11] MEDS: MIDAZOLAM 10 MG/2 ML VIAL IV PRN ×3 (11:32→13:58)
--- NOTE | 2017-03-11 11:32 | XRay Report ---
History: Line placement. Postop thoracotomy Date: 03/11/2017 Study: Chest x-ray AP portable Comparison exam: March 06, 2017 chest x-ray The right IJ central line is well positioned with its tip over the right atrium. A right-sided [place]-Braulio catheter is positioned with its tip over the distal main left pulmonary artery. The endotracheal tube is well positioned. The nasogastric tube enters the stomach. Chest drainage tubes overlie the mediastinum. The cardiac silhouette is upper normal in size. The pulmonary vasculature is not engorged. There is some minor platelike subsegmental atelectasis in the left lower lung and right mid to upper lung. There is no pneumothorax or significant pleural effusion. Osseous structures are unremarkable. Impression: The supporting tubes are in generally satisfactory position. There is no pneumothorax. There is mild subsegmental atelectasis in the lower lungs PROCEDURE INTERPRETED AT [facility] Final Report Signed by: Dr. Tanya Joseph
[2017-03-11 11:34] LABS: INR 1.2; PT Patient Result 13.3 SECS; Partial Thromboplastin Time 33.9 SECS (0-40)
[2017-03-11] MEDS: LACTATED RINGERS 1,000 ML IV PRN ×4 (11:43→17:07)
[2017-03-11 11:47] LABS: Albumin 3.2 G/DL (3.4-5.0); Bilirubin,Total 0.6 MG/DL (0.2-1.0); Calcium 8.7 MG/DL (8.5-10.1); Magnesium 2.1 MG/DL (1.8-2.4); Osmolality,Calculated 285.3 MOS/KG (273-304); Potassium 3.9 MMOL/L (3.5-5.1); Total Protein 5.1 G/DL (6.4-8.3)
[2017-03-11] MEDS: KETOROLAC 30 MG/1 ML VIAL IV SCH ×3 (11:48→21:30)
[2017-03-11 11:50] LABS: Band Neutrophils 5 % (0-10); Eosinophils 3 % (0-10); Lymphocytes 8 % (20-55); Segmented Neutrophils 82 % (50-85); Total Cells Counted 100
[2017-03-11 11:51] LABS: Microcytosis 1+; Platelet Estimate Normal
[2017-03-11 11:55] LABS: Troponin I Only 2.36 NG/ML (0.00-0.045)
[2017-03-11] MEDS: POTASSIUM CHLORIDE RIDER 20 MEQ in PREMIX 1 EACH IV PRN ×5 (11:57→23:58)
--- NOTE | 2017-03-11 12:19 | Cardiology Progress Note ---
Rere Kaufman April RN, am scribing for, and in the presence of, Fabio Youssef MD 12:19. Assessment and Plan (1) S/P AVR (aortic valve replacement) Status: Acute Current Visit: Yes (2) Aortic stenosis Status: Acute Assessment and plan: Status post 23mm pericardial aortic valve replacement this a.m. per Dr. Leblanc. Current Visit: Yes (3) Recurrent falls Status: Acute Assessment and plan: Many of these may actually be related to chronic narcotic use. However, he does have severe aortic stenosis which may also be a factor. He had aortic valve replacement today. Current Visit: Yes (4) Syncope Status: Acute Assessment and plan: Most likely secondary to patient's aortic stenosis, status post aortic valve replacement today. Current Visit: Yes (5) Dementia Status: Chronic Assessment and plan: Stable at present. Current Visit: Yes (6) Hard of hearing Status: Chronic Assessment and plan: Chronic. 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 Cardenas is seen in CVR status post aortic valve replacement with pericardial prosthesis by Dr. Leblanc. He is intubated and mechanically ventilated. Chest tube noted. He is currently in sinus rhythm with heart rates in the 90s. Excellent hemodynamics. He is on low nitroprusside infusion. Current Medications Acetaminophen (Tylenol Supp) 650 mg RECTAL Q4H PRN PRN Reason: Temp greater than 101F Calcium Chloride () 250 mg IV ONCE PRN PRN Reason: MAP <60 w/ IVF & Phenylephrine Chlorhexidine Gluconate (Peridex) 15 ml SWISH/SPIT BID JOSEPHINE Dextrose/Water (D50) 25 gm IV Q15M PRN PRN Reason: BG less than/equal to 70 mg/dL Dextrose/Water (D50) 12.5 gm IV Q15M PRN PRN Reason: BG 71 - 80 mg/dL Sodium Chloride (1/2ns) 1,000 mls @ 20 mls/hr IV .Q24H JOSEPHINE Sodium Chloride (1/2ns) 1,000 mls @ 20 mls/hr IV .Q24H JOSEPHINE Albumin Human 12.5 gm/ Premix 250 mls @ 1,000 mls/hr IV BOLUS PRN PRN Reason: MAP <60 &/or CO <3 Cefuroxime Sodium 1,500 mg/ (Sodium Chloride) 100 mls @ 200 mls/hr IV Q12H [facility] Stop: 03/12/17 18:54 Insulin Human Regular () 100 mls @ 1.281 mls/hr IV TITRATE JOSEPHINE; 0.02 UNITS/KG/ HR PRN Reason: Protocol Lactated Ringer's (Lr) 250 mls @ 999 mls/hr IV BOLUS PRN PRN Reason: MAP < 60 &/or CO < 3 Magnesium Sulfate 2 gm/ Premix 50 mls @ 25 mls/hr IV .PER PROTOCOL PRN; Protocol PRN Reason: Per Protocol Magnesium Sulfate 4 gm/ Premix 100 mls @ 25 mls/hr IV .PER PROTOCOL PRN; Protocol PRN Reason: Per Protocol Phenylephrine/Sodium Chloride (Jose Synephrine Drip) 40 mg in 250 mls @ 3.75 mls /hr IV TITRATE PRN; Protocol; 10 MCG/MIN PRN Reason: maintain MAP greater than 60 Potassium Chloride 10 meq/ (Premix) 100 mls @ 100 mls/hr IV .PER PROTOCOL PRN; Protocol PRN Reason: Per Protocol Potassium Chloride 20 meq/ (Premix) 100 mls @ 50 mls/hr IV .PER PROTOCOL PRN; Protocol PRN Reason: Per Protocol Sodium Nitroprusside 100 mg/ (Dextrose/Water) 254 mls @ 4.88 mls/hr IV TITRATE PRN; Protocol; 0.5 MCG/KG/MIN PRN Reason: maintain MAP 60 - 90 mmHg Insulin Human Regular (Humulin R) 0 unit IV PRN PRN; Protocol PRN Reason: INSULIN PROTOCOL BOLUS Ketorolac Tromethamine (Toradol Inj) 30 mg IV Q6H [facility] Stop: 03/12/17 16:31 Midazolam HCl (Versed) 2 mg IV Q2H PRN PRN Reason: Moderate restlessness/anxiety Last Admin: 03/11/17 11:13 Dose: 2 mg Midazolam HCl (Versed) 5 mg IV Q2H PRN PRN Reason: Severe restlessness/anxiety Morphine Sulfate () 2 mg IV Q2H PRN PRN Reason: Pain Mild (1-3) Morphine Sulfate () 5 mg IV Q2H PRN PRN Reason: Moderate or Severe Pain Ondansetron HCl (Zofran Inj) 4 mg IV Q6H PRN PRN Reason: Nausea/Vomiting Vecuronium [place] (Norcuron) 5 mg IV Q1-2H PRN PRN Reason: Moderate agitation / shivering Vecuronium [place] (Norcuron) 2 mg IV Q1-2H PRN PRN Reason: Mild agitation or shivering Exam (Progress Note) - Constitutional Vitals: Period Temp Pulse Resp BP Sys/Delgadillo Pulse Ox Last 24 Hr 97.9 F-100.5 F 64-92 10-20 101-136/54-74 97-100 General appearance: other (Intubated on mechanical ventilation) - Head Head exam: Absent: abrasion, hematoma - ENT ENT exam: Present: other (ET tube, NG tube) - Respiratory Respiratory exam: Present: clear to auscultation bilaterally, other. Absent: accessory muscle use, chest wall tenderness - Cardiovascular Cardiovascular exam: Present: regular rate and rhythm - GI/Abdominal GI/Abdominal exam: Present: normal bowel sounds, soft. Absent: distended - Extremities Exam Extremities exam: Absent: edema - Skin Skin exam: Present: warm, dry Result/EKG - Labs CBC & BMP: 03/11/17 11:00 03/11/17 11:00 Lab Results: I have reviewed the past 24 hour labs Labs: Laboratory Results - last 24 hr 03/10/17 03/11/17 03/11/17 04:14 04:37 04:37 WBC 7.4 RBC 3.99 Hgb 12.6 L Hct 36.7 L MCV 92.0 MCH 32 MCHC 34.3 RDW 11.9 Plt Count 286 MPV 9.8 Neut % (Auto) 60.7 Lymph % (Auto) 21.7 Hubbard % (Auto) 9.0 Eos % (Auto) 7.7 Baso % (Auto) 0.5 Neut # (Auto) 4.5 Lymph # (Auto) 1.6 Hubbard # (Auto) 0.7 Eos # (Auto) 0.6 Baso # (Auto) 0.0 Immature Gran % 0.4 Nucleated RBC % 0.0 Immature Gran # 0.03 Nucleated RBCs # 0.00 Patient Temperature ABG pH ABG pH at Pt Temp ABG pCO2 ABG pCO2 at Pt Temp ABG pO2 ABG pO2 at Pt Temp ABG HCO3 ABG Total CO2 ABG O2 Saturation ABG Base Excess ABG Sodium VBG pH VBG pCO2 VBG pO2 VBG HCO3 VBG Total CO2 VBG O2 Saturation VBG Base Excess Hemoglobin Hematocrit Ionized Calcium FiO2 Sodium 140 Potassium 3.8 Chloride 104 Carbon Dioxide 28 Anion Gap 11.8 BUN 13 Creatinine 0.80 GFR Calculation 92 BUN/Creatinine Ratio 16.00 Glucose 100 Calculated Osmolality 278.4 Calcium 8.8 Venous Ioniz Calcium Magnesium 2.1 Urine Color Urine Appearance Urine pH Ur Specific Belle Urine Protein Urine Glucose (UA) Urine Ketones Urine Blood Urine Nitrate Urine Bilirubin Urine Urobilinogen Urine Leukocytes Urine RBC Urine WBC Ur Culture Indicated? Blood Type O POSITIVE Antibody Screen Negative Crossmatch See Detail 03/11/17 03/11/17 03/11/17 07:30 07:30 07:42 WBC RBC Hgb Hct MCV MCH MCHC RDW Plt Count 241 MPV Neut % (Auto) Lymph % (Auto) Hubbard % (Auto) Eos % (Auto) Baso % (Auto) Neut # (Auto) Lymph # (Auto) Hubbard # (Auto) Eos # (Auto) Baso # (Auto) Immature Gran % Nucleated RBC % Immature Gran # Nucleated RBCs # Patient Temperature 37 ABG pH 7.440 ABG pH at Pt Temp 7.440 ABG pCO2 36.3 ABG pCO2 at Pt Temp 36.3 ABG pO2 542.7 H ABG pO2 at Pt Temp 542.7 ABG HCO3 24.1 ABG Total CO2 25.2 ABG O2 Saturation 99.5 ABG Base Excess 0.3 ABG Sodium 137 VBG pH VBG pCO2 VBG pO2 VBG HCO3 VBG Total CO2 VBG O2 Saturation VBG Base Excess Hemoglobin 12.4 L Hematocrit 36.0 L Ionized Calcium 1.15 L FiO2 Sodium Potassium 3.4 L Chloride Carbon Dioxide Anion Gap BUN Creatinine GFR Calculation BUN/Creatinine Ratio Glucose 115 H Calculated Osmolality Calcium Venous Ioniz Calcium Magnesium Urine Color Yellow Urine Appearance Clear Urine pH 6.0 Ur Specific Belle 1.008 Urine Protein Negative Urine Glucose (UA) Negative Urine Ketones Negative Urine Blood Negative Urine Nitrate Negative Urine Bilirubin Negative Urine Urobilinogen < 2.0 H Urine Leukocytes Moderate H Urine RBC 2 Urine WBC 7 Ur Culture Indicated? Results to follow Blood Type Antibody Screen Crossmatch 03/11/17 03/11/17 03/11/17 08:17 08:46 09:40 WBC RBC Hgb Hct MCV MCH MCHC RDW Plt Count MPV Neut % (Auto) Lymph % (Auto) Hubbard % (Auto) Eos % (Auto) Baso % (Auto) Neut # (Auto) Lymph # (Auto) Hubbard # (Auto) Eos # (Auto) Baso # (Auto) Immature Gran % Nucleated RBC % Immature Gran # Nucleated RBCs # Patient Temperature 34 33 37 ABG pH ABG pH at Pt Temp 7.456 7.472 7.456 ABG pCO2 ABG pCO2 at Pt Temp 36.2 34.5 35.9 ABG pO2 ABG pO2 at Pt Temp 29.5 31.0 505.1 ABG HCO3 ABG Total CO2 ABG O2 Saturation ABG Base Excess ABG Sodium 129 L 134 L 131 L VBG pH 7.412 7.413 7.456 VBG pCO2 41.9 41.9 35.9 L VBG pO2 36.4 41.0 H 505.1 H VBG HCO3 25.8 25.9 24.7 VBG Total CO2 25.2 24.8 25.8 VBG O2 Saturation 70.8 76.8 99.0 VBG Base Excess 1.9 2.0 1.0 Hemoglobin 7.4 L 8.6 L 9.8 L D Hematocrit 23.1 L 26.7 L 29.0 L Ionized Calcium FiO2 80.00 80.00 100.00 Sodium Potassium 4.3 3.8 3.7 Chloride Carbon Dioxide Anion Gap BUN Creatinine GFR Calculation BUN/Creatinine Ratio Glucose 288 H 256 H 210 H Calculated Osmolality Calcium Venous Ioniz Calcium 0.94 L 1.02 L 1.12 Magnesium Urine Color Urine Appearance Urine pH Ur Specific Belle Urine Protein Urine Glucose (UA) Urine Ketones Urine Blood Urine Nitrate Urine Bilirubin Urine Urobilinogen Urine Leukocytes Urine RBC Urine WBC Ur Culture Indicated? Blood Type Antibody Screen Crossmatch 03/11/17 10:33 WBC RBC Hgb Hct MCV MCH MCHC RDW Plt Count MPV Neut % (Auto) Lymph % (Auto) Hubbard % (Auto) Eos % (Auto) Baso % (Auto) Neut # (Auto) Lymph # (Auto) Hubbard # (Auto) Eos # (Auto) Baso # (Auto) Immature Gran % Nucleated RBC % Immature Gran # Nucleated RBCs # Patient Temperature ABG pH 7.339 L ABG pH at Pt Temp ABG pCO2 50.4 H ABG pCO2 at Pt Temp ABG pO2 209.3 H ABG pO2 at Pt Temp ABG HCO3 26.5 H ABG Total CO2 28.1 H ABG O2 Saturation 98.8 ABG Base Excess 0.3 ABG Sodium VBG pH VBG pCO2 VBG pO2 VBG HCO3 VBG Total CO2 VBG O2 Saturation VBG Base Excess Hemoglobin 10.8 L Hematocrit 32.0 L Ionized Calcium FiO2 Sodium Potassium 3.7 Chloride Carbon Dioxide Anion Gap BUN Creatinine GFR Calculation BUN/Creatinine Ratio Glucose 191 H Calculated Osmolality Calcium Venous Ioniz Calcium Magnesium Urine Color Urine Appearance Urine pH Ur Specific Belle Urine Protein Urine Glucose (UA) Urine Ketones Urine Blood Urine Nitrate Urine Bilirubin Urine Urobilinogen Urine Leukocytes Urine RBC Urine WBC Ur Culture Indicated? Blood Type Antibody Screen Crossmatch - EKG EKG results: interpreted by me EKG shows: sinus rhythm Quality Measures - VTE Contraindication to Pharmacological VTE Prophylaxis: High Risk of Bleeding Mikael Kaufman Michael, MD, personally performed the services described in this documentation, ascribed by Helena Jernigan RN in my presence, and it is both accurate and complete 219 .
[2017-03-11 12:26] LABS: ABG Base Excess 0.4 MMOL/L (-2.5-2.5); ABG HCO3 26.2 MMOL/L (20-26); ABG Oxygen Saturation 98.7 % (95-100); ABG PCO2 47.7 MM HG (35-48); ABG PH 7.358 (7.35-7.45); ABG PO2 215.7 MM HG (80-95); ABG TCO2 27.7 MMOL/L (23-27); Glucose Heart Surgery 179 MG/DL (74-106); Hemoglobin Heart Surgery 9.8 G/DL (14.0-18.0); Potassium Heart/CVR 4.4 MMOL/L (3.5-5.1)
--- NOTE | 2017-03-11 13:11 | Hospitalist Progress Note ---
Assessment and Plan (1) Severe aortic stenosis Status: Acute Assessment and plan: severe aotic stenosis, likely causing falls and altered mental status though medication misuse could also be contributing. AVR done today. Dr Leblanc directing psot op care with cardiology. I will check back tomorrow on his glucoses, but I doubt he will need prolonged treatment for hyperglycemia. Current Visit: Yes (2) Altered mental status Status: Resolved Current Visit: Yes (3) Recurrent falls Status: Acute Current Visit: Yes (4) Acute kidney injury Status: Resolved Current Visit: Yes Hospitalist: Subjective Interval history: COurtesy visit post AVR. He is stable post op. On insulin infusion, glucose coming down from high in surgery. Not diabetic preop. Exam - Constitutional Vitals: Period Temp Pulse Resp BP Sys/Delgadillo Pulse Ox Last 24 Hr 97.6 F-100.5 F 64-93 10-24 90-141/43-74 97-100 Results - Labs CBC & BMP: 03/11/17 11:00 03/11/17 11:00 Quality Measures - VTE Contraindication to Pharmacological VTE Prophylaxis: High Risk of Bleeding
[2017-03-11 13:34] LABS: ABG Base Excess 1.2 MMOL/L (-2.5-2.5); ABG Oxygen Saturation 98.7 % (95-100); ABG PH 7.409 (7.35-7.45); ABG PO2 191.7 MM HG (80-95); ABG TCO2 27.3 MMOL/L (23-27); Glucose Heart Surgery 164 MG/DL (74-106); Hemoglobin Heart Surgery 9.6 G/DL (14.0-18.0)
[2017-03-11] MEDS: PROPOFOL 1,000 MG/100 ML BOTTLE IV SCH ×2 (13:39→19:00)
--- NOTE | 2017-03-11 14:53 | Anesthesia Procedures ---
Anesthesia Procedures - Arterial Line Consent obtained arterial line: written consent Time out performed arterial line: Yes Size (Gauge): 20 Technique used arterial line: guide wire technique Post-Procedure: line sutured into place, dry sterile dressing placed Patient tolerated procedure arterial line: well Complications art line: none Site: left
[2017-03-11 15:29] LABS: ABG Base Excess 0.6 MMOL/L (-2.5-2.5); ABG HCO3 25.4 MMOL/L (20-26); ABG Oxygen Saturation 98.4 % (95-100); ABG PCO2 41.3 MM HG (35-48); ABG PH 7.406 (7.35-7.45); ABG PO2 140.8 MM HG (80-95); ABG TCO2 26.6 MMOL/L (23-27); Glucose Heart Surgery 160 MG/DL (74-106); Hemoglobin Heart Surgery 11.3 G/DL (14.0-18.0); Potassium Heart/CVR 4.7 MMOL/L (3.5-5.1)
[2017-03-11] MEDS: ALBUMIN 5% 12.5 GM in PREMIX 1 EACH IV PRN ×3 (16:11→18:37)
[2017-03-11] MEDS: MORPHINE 10 MG/1 ML VIAL IV PRN (17:09)
[2017-03-11 18:20] LABS: ABG Base Excess 0.7 MMOL/L (-2.5-2.5); ABG HCO3 24.1 MMOL/L (20-26); ABG Oxygen Saturation 98.4 % (95-100); ABG PCO2 33.6 MM HG (35-48); ABG PH 7.473 (7.35-7.45); ABG PO2 151.1 MM HG (80-95); ABG TCO2 25.1 MMOL/L (23-27); Glucose Heart Surgery 148 MG/DL (74-106); Hemoglobin Heart Surgery 9.6 G/DL (14.0-18.0); Potassium Heart/CVR 4.1 MMOL/L (3.5-5.1)
[2017-03-11] MEDS: CEFUROXIME INJ 1,500 MG in SODIUM CHLORIDE 0.9% 100 ML IV SCH (18:35)
[2017-03-11] MEDS ORDERED: FUROSEMIDE 40 MG/4 ML VIAL IV ONE (18:37)
[2017-03-11 20:09] LABS: ABG Base Excess -0.4 MMOL/L (-2.5-2.5); ABG HCO3 24.3 MMOL/L (20-26); ABG Oxygen Saturation 98.4 % (95-100); ABG PH 7.401 (7.35-7.45); ABG PO2 145.5 MM HG (80-95); ABG TCO2 25.5 MMOL/L (23-27); Glucose Heart Surgery 158 MG/DL (74-106); Hemoglobin Heart Surgery 10.3 G/DL (14.0-18.0); Potassium Heart/CVR 4.4 MMOL/L (3.5-5.1)
[2017-03-11 20:52] LABS: Troponin I Only 1.61 NG/ML (0.00-0.045)
[2017-03-11] MEDS ORDERED: CHLORHEXIDINE 0.12% ORAL RINSE 60 ML BOTTLE SWISH/SPIT SCH (21:00)
[2017-03-11 23:46] LABS: ABG Base Excess 0.4 MMOL/L (-2.5-2.5); ABG HCO3 24.7 MMOL/L (20-26); ABG Oxygen Saturation 98.3 % (95-100); ABG PCO2 38.3 MM HG (35-48); ABG PH 7.427 (7.35-7.45); ABG PO2 131.8 MM HG (80-95); ABG TCO2 25.9 MMOL/L (23-27); Glucose Heart Surgery 136 MG/DL (74-106); Hemoglobin Heart Surgery 10.2 G/DL (14.0-18.0); Potassium Heart/CVR 4.4 MMOL/L (3.5-5.1)
[2017-03-12] MEDS: MORPHINE 10 MG/1 ML VIAL IV PRN ×2 (00:18→07:20)
[2017-03-12] MEDS: PROPOFOL 1,000 MG/100 ML BOTTLE IV SCH ×2 (00:48→06:24)
[2017-03-12 02:52] LABS: CKMB % 3.9 %
[2017-03-12 02:58] LABS: Troponin I Only 1.17 NG/ML (0.00-0.045)
[2017-03-12 03:30] LABS: ABG Base Excess 2.4 MMOL/L (-2.5-2.5); ABG HCO3 26.7 MMOL/L (20-26); ABG Oxygen Saturation 98.4 % (95-100); ABG PCO2 40.4 MM HG (35-48); ABG PH 7.438 (7.35-7.45); ABG PO2 146.9 MM HG (80-95); ABG TCO2 27.9 MMOL/L (23-27); Glucose Heart Surgery 135 MG/DL (74-106); Hemoglobin Heart Surgery 10.4 G/DL (14.0-18.0); Potassium Heart/CVR 4.1 MMOL/L (3.5-5.1)
[2017-03-12 03:32] LABS: Basophils % 0.1 % (0.0-0.8); Hematocrit 28.1 VOL% (42.0-52.0); Hemoglobin 9.7 GM/DL (14.0-18.0); Immature Granulocytes % 0.6 %; Immature Granulocytes Absolute 0.07 #; Lymphocytes # 0.9 10*3/uL (1.4-4.0); Mean Corpuscular HGB Conc 34.5 GM/DL (32-36); Mean Corpuscular Hemoglobin 31 PG (27-34); Mean Corpuscular Volume 90.9 FL (87-102); Mean Platelet Volume 10.6 FL (9.6-12.0); Monocytes # 0.7 10*3/uL (0.11-0.8); Monocytes % 6.2 % (1.7-12.7); Neutrophils # 9.3 10*3/uL (1.4-7.4); Neutrophils % 85.1 % (38.7-73.9); Platelet Count 186 T/CUMM (130-400); Red Blood Count 3.09 MC/CUMM (3.8-5.5); Red Cell Distribution Width 13.2 % (9.3-17.3); White Blood Count 10.9 T/CUMM (4-12)
[2017-03-12 04:00] LABS: Albumin 3.2 G/DL (3.4-5.0); Bilirubin,Direct 0.1 MG/DL (0.0-0.20); Bilirubin,Total 0.9 MG/DL (0.2-1.0); Calcium 8.4 MG/DL (8.5-10.1); Osmolality,Calculated 284.1 MOS/KG (273-304); Potassium 4.4 MMOL/L (3.5-5.1); Total Protein 5.1 G/DL (6.4-8.3)
[2017-03-12] MEDS: KETOROLAC 30 MG/1 ML VIAL IV SCH ×4 (04:52→20:49)
[2017-03-12] MEDS: POTASSIUM CHLORIDE RIDER 20 MEQ in PREMIX 1 EACH IV PRN (05:02)
[2017-03-12] MEDS: ALBUMIN 5% 12.5 GM in PREMIX 1 EACH IV PRN (05:05)
[2017-03-12] MEDS: CEFUROXIME INJ 1,500 MG in SODIUM CHLORIDE 0.9% 100 ML IV SCH (06:22)
[2017-03-12 06:36] LABS: ABG Base Excess 1.8 MMOL/L (-2.5-2.5); ABG HCO3 26.6 MMOL/L (20-26); ABG Oxygen Saturation 98.3 % (95-100); ABG PCO2 42.2 MM HG (35-48); ABG PH 7.417 (7.35-7.45); ABG PO2 145.7 MM HG (80-95); ABG TCO2 27.9 MMOL/L (23-27); Glucose Heart Surgery 121 MG/DL (74-106); Hemoglobin Heart Surgery 10.1 G/DL (14.0-18.0); Potassium Heart/CVR 4.4 MMOL/L (3.5-5.1)
--- NOTE | 2017-03-12 07:56 | EKG Report ---
Stationary ECG Study 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
--- NOTE | 2017-03-12 08:03 | Cardiothoracic Progress Note ---
Cardiothoracic Subjective Interval history: Patient is awake alert and extubated. Vital signs are stable and have been through the night. Cardiac output is 3.7. Cardiac enzymes are not elevated. Arterial blood gases are satisfactory urine output has been good. Chest tube drainage is minimal and his chest tubes have been discontinued. Overall his progress is satisfactory and we will transfer him to telemetry later this morning. Exam (Progress Note) - Constitutional Vitals: Period Temp Pulse Resp BP Sys/[place] Pulse Ox Last 24 Hr 97.6 F-98.8 F 63-93 8-24 79-150/43-88 100-100 Result/EKG - Labs CBC & BMP: 03/12/17 03:04 03/12/17 03:04 Labs: Laboratory Results - last 24 hr 03/10/17 03/11/17 03/11/17 04:14 08:17 08:46 WBC RBC Hgb Hct MCV MCH MCHC RDW Plt Count MPV Neut % (Auto) Lymph % (Auto) Tyler % (Auto) Eos % (Auto) Baso % (Auto) Neut # (Auto) Lymph # (Auto) Tyler # (Auto) Eos # (Auto) Baso # (Auto) Total Counted Immature Gran % Nucleated RBC % Immature Gran # Segmented Neutrophils Band Neutrophils Lymphocytes Monocytes Eosinophils Basophils Nucleated RBCs # Platelet Estimate Microcytosis INR PT Patient/Control Mix Circ Anticoag PTT Patient Temperature 34 33 ABG pH ABG pH at Pt Temp 7.456 7.472 ABG pCO2 ABG pCO2 at Pt Temp 36.2 34.5 ABG pO2 ABG pO2 at Pt Temp 29.5 31.0 ABG HCO3 ABG Total CO2 ABG O2 Saturation ABG Base Excess ABG Sodium 129 L 134 L VBG pH 7.412 7.413 VBG pCO2 41.9 41.9 VBG pO2 36.4 41.0 H VBG HCO3 25.8 25.9 VBG Total CO2 25.2 24.8 VBG O2 Saturation 70.8 76.8 VBG Base Excess 1.9 2.0 Hemoglobin 7.4 L 8.6 L Hematocrit 23.1 L 26.7 L Potassium 4.3 3.8 Glucose 288 H 256 H FiO2 80.00 80.00 Sodium Chloride Carbon Dioxide Anion Gap BUN Creatinine GFR Calculation BUN/Creatinine Ratio POC Glucose Calculated Osmolality Calcium Venous Ioniz Calcium 0.94 L 1.02 L Magnesium Total Bilirubin Direct Bilirubin AST ALT Alkaline Phosphatase Total Creatine Kinase CK-MB (CK-2) CK and CKMB Interp Troponin I Total Protein Albumin Globulin Albumin/Globulin Ratio Blood Type O POSITIVE Antibody Screen Negative Crossmatch See Detail 03/11/17 03/11/17 03/11/17 09:40 10:33 11:00 WBC 8.4 RBC 3.20 L Hgb 10.2 L D Hct 29.9 L MCV 93.4 MCH 32 MCHC 34.1 RDW 11.9 Plt Count 215 MPV 10.0 Neut % (Auto) 81.2 H Lymph % (Auto) 12.6 L Tyler % (Auto) 2.9 Eos % (Auto) 2.5 Baso % (Auto) 0.2 Neut # (Auto) 6.8 Lymph # (Auto) 1.1 L Tyler # (Auto) 0.2 Eos # (Auto) 0.2 Baso # (Auto) 0.0 Total Counted 100 Immature Gran % 0.6 Nucleated RBC % 0.0 Immature Gran # 0.05 Segmented Neutrophils 82 Band Neutrophils 5 Lymphocytes 8 L Monocytes 1 L Eosinophils 3 Basophils 1.0 H Nucleated RBCs # 0.00 Platelet Estimate Normal Microcytosis 1+ INR PT Patient/Control Mix Circ Anticoag PTT Patient Temperature 37 ABG pH 7.339 L ABG pH at Pt Temp 7.456 ABG pCO2 50.4 H ABG pCO2 at Pt Temp 35.9 ABG pO2 209.3 H ABG pO2 at Pt Temp 505.1 ABG HCO3 26.5 H ABG Total CO2 28.1 H ABG O2 Saturation 98.8 ABG Base Excess 0.3 ABG Sodium 131 L VBG pH 7.456 VBG pCO2 35.9 L VBG pO2 505.1 H VBG HCO3 24.7 VBG Total CO2 25.8 VBG O2 Saturation 99.0 VBG Base Excess 1.0 Hemoglobin 9.8 L D 10.8 L Hematocrit 29.0 L 32.0 L Potassium 3.7 3.7 Glucose 210 H 191 H FiO2 100.00 Sodium Chloride Carbon Dioxide Anion Gap BUN Creatinine GFR Calculation BUN/Creatinine Ratio POC Glucose Calculated Osmolality Calcium Venous Ioniz Calcium 1.12 Magnesium Total Bilirubin Direct Bilirubin AST ALT Alkaline Phosphatase Total Creatine Kinase CK-MB (CK-2) CK and CKMB Interp Troponin I Total Protein Albumin Globulin Albumin/Globulin Ratio Blood Type Antibody Screen Crossmatch 03/11/17 03/11/17 03/11/17 11:00 11:00 11:00 WBC RBC Hgb Hct MCV MCH MCHC RDW Plt Count MPV Neut % (Auto) Lymph % (Auto) Tyler % (Auto) Eos % (Auto) Baso % (Auto) Neut # (Auto) Lymph # (Auto) Tyler # (Auto) Eos # (Auto) Baso # (Auto) Total Counted Immature Gran % Nucleated RBC % Immature Gran # Segmented Neutrophils Band Neutrophils Lymphocytes Monocytes Eosinophils Basophils Nucleated RBCs # Platelet Estimate Microcytosis INR 1.2 PT Patient/Control Mix 13.3 D Circ Anticoag PTT 33.9 Patient Temperature ABG pH ABG pH at Pt Temp ABG pCO2 ABG pCO2 at Pt Temp ABG pO2 ABG pO2 at Pt Temp ABG HCO3 ABG Total CO2 ABG O2 Saturation ABG Base Excess ABG Sodium VBG pH VBG pCO2 VBG pO2 VBG HCO3 VBG Total CO2 VBG O2 Saturation VBG Base Excess Hemoglobin Hematocrit Potassium 3.9 Glucose 189 H FiO2 Sodium 141 Chloride 104 Carbon Dioxide 27 Anion Gap 13.9 BUN 12 Creatinine 0.90 GFR Calculation 87 BUN/Creatinine Ratio 13.00 POC Glucose Calculated Osmolality 285.3 Calcium 8.7 Venous Ioniz Calcium Magnesium 2.1 Total Bilirubin 0.60 Direct Bilirubin AST 17 ALT 11 L Alkaline Phosphatase 65 Total Creatine Kinase 144 CK-MB (CK-2) 10.1 H CK and CKMB Interp 7.0 Troponin I 2.360 H Total Protein 5.1 L Albumin 3.2 L Globulin 1.9 L Albumin/Globulin Ratio 1.6 Blood Type Antibody Screen Crossmatch 03/11/17 03/11/17 03/11/17 12:20 13:30 14:29 WBC RBC Hgb Hct MCV MCH MCHC RDW Plt Count MPV Neut % (Auto) Lymph % (Auto) Tyler % (Auto) Eos % (Auto) Baso % (Auto) Neut # (Auto) Lymph # (Auto) Tyler # (Auto) Eos # (Auto) Baso # (Auto) Total Counted Immature Gran % Nucleated RBC % Immature Gran # Segmented Neutrophils Band Neutrophils Lymphocytes Monocytes Eosinophils Basophils Nucleated RBCs # Platelet Estimate Microcytosis INR PT Patient/Control Mix Circ Anticoag PTT Patient Temperature ABG pH 7.358 7.409 ABG pH at Pt Temp ABG pCO2 47.7 42.0 ABG pCO2 at Pt Temp ABG pO2 215.7 H 191.7 H ABG pO2 at Pt Temp ABG HCO3 26.2 H 26.0 ABG Total CO2 27.7 H 27.3 H ABG O2 Saturation 98.7 98.7 ABG Base Excess 0.4 1.2 ABG Sodium VBG pH VBG pCO2 VBG pO2 VBG HCO3 VBG Total CO2 VBG O2 Saturation VBG Base Excess Hemoglobin 9.8 L 9.6 L Hematocrit 29.0 L 28.0 L Potassium 4.4 4.0 Glucose 179 H 164 H FiO2 Sodium Chloride Carbon Dioxide Anion Gap BUN Creatinine GFR Calculation BUN/Creatinine Ratio POC Glucose 153 H Calculated Osmolality Calcium Venous Ioniz Calcium Magnesium Total Bilirubin Direct Bilirubin AST ALT Alkaline Phosphatase Total Creatine Kinase CK-MB (CK-2) CK and CKMB Interp Troponin I Total Protein Albumin Globulin Albumin/Globulin Ratio Blood Type Antibody Screen Crossmatch 03/11/17 03/11/17 03/11/17 15:15 17:12 18:15 WBC RBC Hgb Hct MCV MCH MCHC RDW Plt Count MPV Neut % (Auto) Lymph % (Auto) Tyler % (Auto) Eos % (Auto) Baso % (Auto) Neut # (Auto) Lymph # (Auto) Tyler # (Auto) Eos # (Auto) Baso # (Auto) Total Counted Immature Gran % Nucleated RBC % Immature Gran # Segmented Neutrophils Band Neutrophils Lymphocytes Monocytes Eosinophils Basophils Nucleated RBCs # Platelet Estimate Microcytosis INR PT Patient/Control Mix Circ Anticoag PTT Patient Temperature ABG pH 7.406 7.473 H ABG pH at Pt Temp ABG pCO2 41.3 33.6 L ABG pCO2 at Pt Temp ABG pO2 140.8 H 151.1 H ABG pO2 at Pt Temp ABG HCO3 25.4 24.1 ABG Total CO2 26.6 25.1 ABG O2 Saturation 98.4 98.4 ABG Base Excess 0.6 0.7 ABG Sodium VBG pH VBG pCO2 VBG pO2 VBG HCO3 VBG Total CO2 VBG O2 Saturation VBG Base Excess Hemoglobin 11.3 L 9.6 L Hematocrit 33.0 L 28.0 L Potassium 4.7 4.1 Glucose 160 H 148 H FiO2 Sodium Chloride Carbon Dioxide Anion Gap BUN Creatinine GFR Calculation BUN/Creatinine Ratio POC Glucose 106 Calculated Osmolality Calcium Venous Ioniz Calcium Magnesium Total Bilirubin Direct Bilirubin AST ALT Alkaline Phosphatase Total Creatine Kinase CK-MB (CK-2) CK and CKMB Interp Troponin I Total Protein Albumin Globulin Albumin/Globulin Ratio Blood Type Antibody Screen Crossmatch 03/11/17 03/11/17 03/11/17 18:45 20:00 20:00 WBC RBC Hgb Hct MCV MCH MCHC RDW Plt Count MPV Neut % (Auto) Lymph % (Auto) Tyler % (Auto) Eos % (Auto) Baso % (Auto) Neut # (Auto) Lymph # (Auto) Tyler # (Auto) Eos # (Auto) Baso # (Auto) Total Counted Immature Gran % Nucleated RBC % Immature Gran # Segmented Neutrophils Band Neutrophils Lymphocytes Monocytes Eosinophils Basophils Nucleated RBCs # Platelet Estimate Microcytosis INR PT Patient/Control Mix Circ Anticoag PTT Patient Temperature ABG pH 7.401 ABG pH at Pt Temp ABG pCO2 40.0 ABG pCO2 at Pt Temp ABG pO2 145.5 H ABG pO2 at Pt Temp ABG HCO3 24.3 ABG Total CO2 25.5 ABG O2 Saturation 98.4 ABG Base Excess -0.4 ABG Sodium VBG pH VBG pCO2 VBG pO2 VBG HCO3 VBG Total CO2 VBG O2 Saturation VBG Base Excess Hemoglobin 10.3 L Hematocrit 30.0 L Potassium 4.4 Glucose 158 H FiO2 Sodium Chloride Carbon Dioxide Anion Gap BUN Creatinine GFR Calculation BUN/Creatinine Ratio POC Glucose 129 H Calculated Osmolality Calcium Venous Ioniz Calcium Magnesium Total Bilirubin Direct Bilirubin AST ALT Alkaline Phosphatase Total Creatine Kinase 173 D CK-MB (CK-2) 8.6 H CK and CKMB Interp 5.0 Troponin I 1.610 H D Total Protein Albumin Globulin Albumin/Globulin Ratio Blood Type Antibody Screen Crossmatch 03/11/17 03/11/17 03/11/17 21:17 22:21 23:35 WBC RBC Hgb Hct MCV MCH MCHC RDW Plt Count MPV Neut % (Auto) Lymph % (Auto) Tyler % (Auto) Eos % (Auto) Baso % (Auto) Neut # (Auto) Lymph # (Auto) Tyler # (Auto) Eos # (Auto) Baso # (Auto) Total Counted Immature Gran % Nucleated RBC % Immature Gran # Segmented Neutrophils Band Neutrophils Lymphocytes Monocytes Eosinophils Basophils Nucleated RBCs # Platelet Estimate Microcytosis INR PT Patient/Control Mix Circ Anticoag PTT Patient Temperature ABG pH 7.427 ABG pH at Pt Temp ABG pCO2 38.3 ABG pCO2 at Pt Temp ABG pO2 131.8 H ABG pO2 at Pt Temp ABG HCO3 24.7 ABG Total CO2 25.9 ABG O2 Saturation 98.3 ABG Base Excess 0.4 ABG Sodium VBG pH VBG pCO2 VBG pO2 VBG HCO3 VBG Total CO2 VBG O2 Saturation VBG Base Excess Hemoglobin 10.2 L Hematocrit 30.0 L Potassium 4.4 Glucose 136 H FiO2 Sodium Chloride Carbon Dioxide Anion Gap BUN Creatinine GFR Calculation BUN/Creatinine Ratio POC Glucose 144 H 127 H Calculated Osmolality Calcium Venous Ioniz Calcium Magnesium Total Bilirubin Direct Bilirubin AST ALT Alkaline Phosphatase Total Creatine Kinase CK-MB (CK-2) CK and CKMB Interp Troponin I Total Protein Albumin Globulin Albumin/Globulin Ratio Blood Type Antibody Screen Crossmatch 03/11/17 03/12/17 03/12/17 23:35 00:58 02:01 WBC RBC Hgb Hct MCV MCH MCHC RDW Plt Count MPV Neut % (Auto) Lymph % (Auto) Tyler % (Auto) Eos % (Auto) Baso % (Auto) Neut # (Auto) Lymph # (Auto) Tyler # (Auto) Eos # (Auto) Baso # (Auto) Total Counted Immature Gran % Nucleated RBC % Immature Gran # Segmented Neutrophils Band Neutrophils Lymphocytes Monocytes Eosinophils Basophils Nucleated RBCs # Platelet Estimate Microcytosis INR PT Patient/Control Mix Circ Anticoag PTT Patient Temperature ABG pH ABG pH at Pt Temp ABG pCO2 ABG pCO2 at Pt Temp ABG pO2 ABG pO2 at Pt Temp ABG HCO3 ABG Total CO2 ABG O2 Saturation ABG Base Excess ABG Sodium VBG pH VBG pCO2 VBG pO2 VBG HCO3 VBG Total CO2 VBG O2 Saturation VBG Base Excess Hemoglobin Hematocrit Potassium Glucose FiO2 Sodium Chloride Carbon Dioxide Anion Gap BUN Creatinine GFR Calculation BUN/Creatinine Ratio POC Glucose 137 H 171 H Calculated Osmolality Calcium Venous Ioniz Calcium Magnesium Total Bilirubin Direct Bilirubin AST ALT Alkaline Phosphatase Total Creatine Kinase 213 D CK-MB (CK-2) 8.3 H CK and CKMB Interp 3.9 Troponin I 1.170 H D Total Protein Albumin Globulin Albumin/Globulin Ratio Blood Type Antibody Screen Crossmatch 03/12/17 03/12/17 03/12/17 02:24 03:01 03:04 WBC 10.9 RBC 3.09 L Hgb 9.7 L Hct 28.1 L MCV 90.9 MCH 31 MCHC 34.5 RDW 13.2 Plt Count 186 MPV 10.6 Neut % (Auto) 85.1 H Lymph % (Auto) 8.0 L Tyler % (Auto) 6.2 Eos % (Auto) 0.0 Baso % (Auto) 0.1 Neut # (Auto) 9.3 H Lymph # (Auto) 0.9 L Tyler # (Auto) 0.7 Eos # (Auto) 0.0 Baso # (Auto) 0.0 Total Counted Immature Gran % 0.6 Nucleated RBC % 0.0 Immature Gran # 0.07 Segmented Neutrophils Band Neutrophils Lymphocytes Monocytes Eosinophils Basophils Nucleated RBCs # 0.00 Platelet Estimate Microcytosis INR PT Patient/Control Mix Circ Anticoag PTT Patient Temperature ABG pH ABG pH at Pt Temp ABG pCO2 ABG pCO2 at Pt Temp ABG pO2 ABG pO2 at Pt Temp ABG HCO3 ABG Total CO2 ABG O2 Saturation ABG Base Excess ABG Sodium VBG pH VBG pCO2 VBG pO2 VBG HCO3 VBG Total CO2 VBG O2 Saturation VBG Base Excess Hemoglobin Hematocrit Potassium Glucose FiO2 Sodium Chloride Carbon Dioxide Anion Gap BUN Creatinine GFR Calculation BUN/Creatinine Ratio POC Glucose 112 H 162 H Calculated Osmolality Calcium Venous Ioniz Calcium Magnesium Total Bilirubin Direct Bilirubin AST ALT Alkaline Phosphatase Total Creatine Kinase CK-MB (CK-2) CK and CKMB Interp Troponin I Total Protein Albumin Globulin Albumin/Globulin Ratio Blood Type Antibody Screen Crossmatch 03/12/17 03/12/17 03/12/17 03:04 03:04 04:56 WBC RBC Hgb Hct MCV MCH MCHC RDW Plt Count MPV Neut % (Auto) Lymph % (Auto) Tyler % (Auto) Eos % (Auto) Baso % (Auto) Neut # (Auto) Lymph # (Auto) Tyler # (Auto) Eos # (Auto) Baso # (Auto) Total Counted Immature Gran % Nucleated RBC % Immature Gran # Segmented Neutrophils Band Neutrophils Lymphocytes Monocytes Eosinophils Basophils Nucleated RBCs # Platelet Estimate Microcytosis INR PT Patient/Control Mix Circ Anticoag PTT Patient Temperature ABG pH 7.438 ABG pH at Pt Temp ABG pCO2 40.4 ABG pCO2 at Pt Temp ABG pO2 146.9 H ABG pO2 at Pt Temp ABG HCO3 26.7 H ABG Total CO2 27.9 H ABG O2 Saturation 98.4 ABG Base Excess 2.4 ABG Sodium VBG pH VBG pCO2 VBG pO2 VBG HCO3 VBG Total CO2 VBG O2 Saturation VBG Base Excess Hemoglobin 10.4 L Hematocrit 31.0 L Potassium 4.4 4.1 Glucose 129 H 135 H FiO2 Sodium 142 Chloride 106 Carbon Dioxide 27 Anion Gap 13.4 BUN 13 Creatinine 0.80 GFR Calculation 92 BUN/Creatinine Ratio 16.00 POC Glucose 145 H Calculated Osmolality 284.1 Calcium 8.4 L Venous Ioniz Calcium Magnesium 2.0 Total Bilirubin 0.90 Direct Bilirubin 0.10 AST 16 ALT 14 L Alkaline Phosphatase 48 Total Creatine Kinase CK-MB (CK-2) CK and CKMB Interp Troponin I Total Protein 5.1 L Albumin 3.2 L Globulin 1.9 L Albumin/Globulin Ratio 1.6 Blood Type Antibody Screen Crossmatch 03/12/17 06:18 WBC RBC Hgb Hct MCV MCH MCHC RDW Plt Count MPV Neut % (Auto) Lymph % (Auto) Tyler % (Auto) Eos % (Auto) Baso % (Auto) Neut # (Auto) Lymph # (Auto) Tyler # (Auto) Eos # (Auto) Baso # (Auto) Total Counted Immature Gran % Nucleated RBC % Immature Gran # Segmented Neutrophils Band Neutrophils Lymphocytes Monocytes Eosinophils Basophils Nucleated RBCs # Platelet Estimate Microcytosis INR PT Patient/Control Mix Circ Anticoag PTT Patient Temperature ABG pH 7.417 ABG pH at Pt Temp ABG pCO2 42.2 ABG pCO2 at Pt Temp ABG pO2 145.7 H ABG pO2 at Pt Temp ABG HCO3 26.6 H ABG Total CO2 27.9 H ABG O2 Saturation 98.3 ABG Base Excess 1.8 ABG Sodium VBG pH VBG pCO2 VBG pO2 VBG HCO3 VBG Total CO2 VBG O2 Saturation VBG Base Excess Hemoglobin 10.1 L Hematocrit 30.0 L Potassium 4.4 Glucose 121 H FiO2 Sodium Chloride Carbon Dioxide Anion Gap BUN Creatinine GFR Calculation BUN/Creatinine Ratio POC Glucose Calculated Osmolality Calcium Venous Ioniz Calcium Magnesium Total Bilirubin Direct Bilirubin AST ALT Alkaline Phosphatase Total Creatine Kinase CK-MB (CK-2) CK and CKMB Interp Troponin I Total Protein Albumin Globulin Albumin/Globulin Ratio Blood Type Antibody Screen Crossmatch Quality Measures - VTE Contraindication to Pharmacological VTE Prophylaxis: High Risk of Bleeding
[2017-03-12 08:31] LABS: ABG Base Excess 1.6 MMOL/L (-2.5-2.5); ABG HCO3 25.9 MMOL/L (20-26); ABG Oxygen Saturation 97.9 % (95-100); ABG PCO2 39.6 MM HG (35-48); ABG PH 7.434 (7.35-7.45); ABG PO2 115.5 MM HG (80-95); ABG TCO2 27.1 MMOL/L (23-27)
[2017-03-12] MEDS ORDERED: MAGNESIUM SULF RIDER 2 GM in PREMIX 1 EACH IV PRN (08:49)
[2017-03-12] MEDS ORDERED: tiZANidine 4 MG TABLET PO PRN (08:49)
[2017-03-12] MEDS ORDERED: DEXTROSE 50% 25 GM/50 ML VIAL IV PRN ×2 (08:49)
[2017-03-12] MEDS ORDERED: ACETAMINOPHEN/CODEINE 300-30 MG TABLET PO PRN (08:49)
[2017-03-12] MEDS ORDERED: GLUCAGON 1 MG VIAL IM PRN ×2 (08:49)
[2017-03-12] MEDS ORDERED: MAGNESIUM SULF RIDER 4 GM in PREMIX 1 EACH IV PRN (08:49)
[2017-03-12] MEDS ORDERED: ONDANSETRON 4 MG/2 ML VIAL IV PRN (08:49)
[2017-03-12] MEDS ORDERED: ACETAMINOPHEN 325 MG TABLET PO PRN (08:49)
[2017-03-12] MEDS ORDERED: ALUMINUM/MAGNES/SIMETH MAX STR 30 ML UDCUP PO PRN (08:49)
[2017-03-12] MEDS ORDERED: MORPHINE 2 MG/1 ML SYRINGE IV PRN (08:49)
[2017-03-12] MEDS ORDERED: MAGNESIUM HYDROXIDE SUSP 30 ML UDCUP PO PRN (08:49)
[2017-03-12] MEDS: BACLOFEN 10 MG TABLET PO SCH ×3 (09:19→20:51)
[2017-03-12] MEDS: GABAPENTIN 400 MG CAPSULE PO SCH ×2 (09:19→20:48)
[2017-03-12] MEDS: SODIUM CHLOR 0.45% KCL 20 MEQ 20 MEQ/1,000 ML BAG IV SCH ×2 (09:19→22:02)
[2017-03-12] MEDS: ASPIRIN EC 325 MG TABLET PO SCH (09:19)
[2017-03-12] MEDS: predniSONE 20 MG TABLET PO SCH (09:19)
[2017-03-12] MEDS: DOCUSATE SODIUM 100 MG CAPSULE PO SCH (09:20)
[2017-03-12] MEDS: PANTOPRAZOLE 40 MG TABLET PO SCH (09:20)
[2017-03-12] MEDS: clonazePAM 0.5 MG TABLET PO PRN ×2 (09:20→20:49)
[2017-03-12] MEDS: CHLORHEXIDINE 0.12% ORAL RINSE 60 ML BOTTLE SWISH/SPIT SCH ×2 (09:21→20:51)
[2017-03-12] MEDS: NABUMETONE 750 MG TABLET PO SCH ×2 (09:34→20:48)
[2017-03-12] MEDS: FERROUS SULFATE 325 MG TABLET PO SCH (09:36)
--- NOTE | 2017-03-12 10:18 | Hospitalist Progress Note ---
Assessment and Plan (1) Severe aortic stenosis Status: Acute Assessment and plan: POD [address] Leblanc directing psot op care with cardiology. Glucose range 129-162. SSI. No diabetes pre op. Current Visit: Yes (2) Altered mental status Status: Resolved Current Visit: Yes (3) Recurrent falls Status: Acute Current Visit: Yes (4) Acute kidney injury Status: Resolved Current Visit: Yes Hospitalist: Subjective Interval history: Mr Cardenas is off the vent and doing well, with plans to transfer to [facility] today. Exam - Constitutional Vitals: Period Temp Pulse Resp BP Sys/[place] Pulse Ox Last 24 Hr 97.6 F-98.8 F 61-93 8-24 79-150/43-88 99-100 General appearance: normal weight, no acute distress - Cardiovascular Cardiovascular exam: Present: regular rate and rhythm - Extremities Exam Extremities exam: Absent: edema Results - Labs CBC & BMP: 03/12/17 03:04 03/12/17 03:04 Quality Measures - VTE Contraindication to Pharmacological VTE Prophylaxis: High Risk of Bleeding
--- NOTE | 2017-03-12 11:04 | XRay Report ---
Exam: XR chest 1V portable Indication: Chest tube removal, extubation Comparison study: March 11, 2017 Findings: Endotracheal tube is no longer visualized. The esophagogastric tube travels below the [id number]. Right-sided central venous catheter is in similar position. No chest tubes are visualized on the current or prior study. The right Frederick-Braulio catheter has also been removed. There is no pneumothorax. Median sternotomy wiring is again noted and appear similar to prior. Cardiac silhouette and mediastinal contours appear stable. Osseous structures are stable.. Impression: Interval extubation. Lungs appear predominantly clear. Interval removal of Frederick-Braulio catheter. Right-sided central venous catheter is in similar position. Esophagogastric tube is in similar position but intervals below the [id number]. PROCEDURE INTERPRETED AT [facility] DEPARTMENT OF RADIOLOGY Final Report Signed by: Feliciano Whitaker
[2017-03-12] MEDS: INSULIN LISPRO 100 UNIT/ML SUBCUT SCH ×3 (13:53→20:50)
--- NOTE | 2017-03-12 14:23 | Cardiology Progress Note ---
Assessment and Plan (1) S/P AVR (aortic valve replacement) Status: Acute Assessment and plan: He is doing very well status post aortic valve replacement with a bioprosthetic valve. Current Visit: Yes (2) Aortic stenosis Status: Acute Assessment and plan: Status post 23mm pericardial aortic valve replacement this a.m. per Dr. Leblanc. Current Visit: Yes (3) Recurrent falls Status: Chronic Assessment and plan: Many of these may actually be related to chronic narcotic use but also could have been related to his severe aortic stenosis which has been treated with valve replacement. Current Visit: Yes (4) Syncope Status: Acute Assessment and plan: Most likely secondary to patient's aortic stenosis, status post aortic valve replacement. Current Visit: Yes (5) Dementia Status: Chronic Assessment and plan: Stable at present. Current Visit: Yes (6) Hard of hearing Status: Chronic Assessment and plan: Chronic. Current Visit: Yes Cardiology - PN: Subj Interval history: The patient is doing well today. He denies any complaints such as palpitations or dyspnea Current Medications Acetaminophen (Tylenol Tab) 650 mg PO Q4H PRN PRN Reason: Temperature greater than 100F Acetaminophen/Codeine Phosphate (Tylenol/Codeine #3) 1 tablet PO Q6H PRN PRN Reason: Pain Al Hydrox/Mg Hydrox/Simethicone (Mylanta Max Strength Liquid) 30 ml PO Q4H PRN PRN Reason: Dyspepsia Amitriptyline HCl (Elavil) 10 mg PO BEDTIME [facility] Aspirin () 325 mg PO DAILY [facility] Last Admin: 03/12/17 09:19 Dose: 325 mg Baclofen (Lioresal) 10 mg PO TID [facility] Last Admin: 03/12/17 09:19 Dose: 10 mg Chlorhexidine Gluconate (Peridex) 15 ml SWISH/SPIT BID [facility] Last Admin: 03/12/17 09:21 Dose: Not Given Clonazepam (Klonopin) 1 mg PO BID PRN PRN Reason: Anxiety Last Admin: 03/12/17 09:20 Dose: 1 mg Dextrose/Water (D50) 25 gm IV PRN PRN PRN Reason: Hypoglycemia with IV access Docusate Sodium (Colace Cap) 100 mg PO DAILY [facility] Last Admin: 03/12/17 09:20 Dose: 100 mg Ferrous Sulfate (Feosol Original Tab) 325 mg PO DAILY [facility] Last Admin: 03/12/17 09:36 Dose: 325 mg Furosemide (Lasix Inj) 40 mg IV ONCE ONE Stop: 03/13/17 06:01 Gabapentin (Neurontin Cap/Tab) 400 mg PO BID [facility] Last Admin: 03/12/17 09:19 Dose: 400 mg Glucagon () 1 mg IM PRN PRN PRN Reason: Hypoglycemia w/o IV access Potassium Chloride/Sodium Chloride (1/2ns Kcl 20 Meq) 20 meq in 1,000 mls @ 80 mls/hr IV .[id number] [facility] Stop: 03/13/17 09:00 Last Admin: 03/12/17 09:19 Dose: 20 mls/hr Magnesium Sulfate 4 gm/ Premix 100 mls @ 25 mls/hr IV .PER PROTOCOL PRN; Protocol PRN Reason: Per Protocol Magnesium Sulfate 2 gm/ Premix 50 mls @ 25 mls/hr IV .PER PROTOCOL PRN; Protocol PRN Reason: Per Protocol Insulin Human Lispro (Humalog) 0 unit SUBCUT ACHS [facility] PRN Reason: Protocol Last Admin: 03/12/17 13:53 Dose: 4 unit Ketorolac Tromethamine (Toradol Inj) 30 mg IV Q6H [facility] Stop: 03/15/17 02:50 Last Admin: 03/12/17 09:21 Dose: 30 mg Magnesium Hydroxide (Milk Of Magnesia) 30 ml PO Q6H PRN PRN Reason: Constipation Morphine Sulfate () 2 mg IV Q2H PRN PRN Reason: Pain Moderate (4-7) Nabumetone (Relafen) 750 mg PO BID [facility] Last Admin: 03/12/17 09:34 Dose: 750 mg Ondansetron HCl (Zofran Inj) 4 mg IV Q4H PRN PRN Reason: Nausea/Vomiting Oxycodone/Acetaminophen (Percocet 5-325) 1 tablet PO Q4H PRN PRN Reason: Pain Mild (1-3) Pantoprazole Sodium (Protonix Tab) 40 mg PO DAILY [facility] Last Admin: 03/12/17 09:20 Dose: 40 mg Potassium Chloride (K Dur) 20 meq PO .PER PROTOCOL PRN; Protocol PRN Reason: Per Protocol Prednisone () 20 mg PO DAILY [facility] Last Admin: 03/12/17 09:19 Dose: 20 mg Tizanidine HCl (Zanaflex) 4 mg PO Q8H PRN PRN Reason: Pain Last Admin: 03/12/17 09:20 Dose: 4 mg Zaleplon (Sonata) 5 mg PO BEDTIME PRN PRN Reason: Sleep or peripheral edema. He has some postoperative soreness as expected, but is otherwise cardiovascularly stable. Exam (Progress Note) - Constitutional Vitals: Period Temp Pulse Resp BP Sys/[place]illo Pulse Ox Last 24 Hr 97.6 F-98.6 F 61-84 8-24 80-150/43-88 96-100 Exam: General: Frail, elderly HEENT: Normocephalic, atraumatic Neck: Supple Neck, Midline Trachea Cardiac: Regular rhythm, 2/6 systolic murmur, no gallop, no rub Surgical wounds: Clean and dressed Lungs: Clear to Ascultation, No Wheeze, Rales, Rhonchi Neuro: Cranial Nerve 2-12 Intact, extremely hard of hearing Abdomen: Soft, Active Bowel Sounds, No Masses, No Pulsations/Bruits Skin: Normal color, no rash Extremities: No Clubbing, No Cyanosis, No Edema, Normal Upper Extr. Pulses Musculoskeletal: No acute abnormality noted Psychiatric: The patient is alert and oriented. The patient has a flat affect but does not appear to be anxious or depressed. Result/EKG - Labs CBC & BMP: 03/12/17 03:04 03/12/17 Unknown Lab Results: I have reviewed the past 24 hour labs Labs: Laboratory Results - last 24 hr 03/10/17 03/11/17 03/11/17 04:14 14:29 15:15 WBC RBC Hgb Hct MCV MCH MCHC RDW Plt Count MPV Neut % (Auto) Lymph % (Auto) [place] % (Auto) Eos % (Auto) Baso % (Auto) Neut # (Auto) Lymph # (Auto) [place] # (Auto) Eos # (Auto) Baso # (Auto) Immature Gran % Nucleated RBC % Immature Gran # Nucleated RBCs # ABG pH 7.406 ABG pCO2 41.3 ABG pO2 140.8 H ABG HCO3 25.4 ABG Total CO2 26.6 ABG O2 Saturation 98.4 ABG Base Excess 0.6 Hemoglobin 11.3 L Hematocrit 33.0 L Potassium 4.7 Glucose 160 H Sodium Chloride Carbon Dioxide Anion Gap BUN Creatinine GFR Calculation BUN/Creatinine Ratio POC Glucose 153 H Calculated Osmolality Calcium Magnesium Total Bilirubin Direct Bilirubin AST ALT Alkaline Phosphatase Total Creatine Kinase CK-MB (CK-2) CK and CKMB Interp Troponin I Total Protein Albumin Globulin Albumin/Globulin Ratio Blood Type O POSITIVE Antibody Screen Negative Crossmatch See Detail 03/11/17 03/11/17 03/11/17 17:12 18:15 18:45 WBC RBC Hgb Hct MCV MCH MCHC RDW Plt Count MPV Neut % (Auto) Lymph % (Auto) [place] % (Auto) Eos % (Auto) Baso % (Auto) Neut # (Auto) Lymph # (Auto) [place] # (Auto) Eos # (Auto) Baso # (Auto) Immature Gran % Nucleated RBC % Immature Gran # Nucleated RBCs # ABG pH 7.473 H ABG pCO2 33.6 L ABG pO2 151.1 H ABG HCO3 24.1 ABG Total CO2 25.1 ABG O2 Saturation 98.4 ABG Base Excess 0.7 Hemoglobin 9.6 L Hematocrit 28.0 L Potassium 4.1 Glucose 148 H Sodium Chloride Carbon Dioxide Anion Gap BUN Creatinine GFR Calculation BUN/Creatinine Ratio POC Glucose 106 129 H Calculated Osmolality Calcium Magnesium Total Bilirubin Direct Bilirubin AST ALT Alkaline Phosphatase Total Creatine Kinase CK-MB (CK-2) CK and CKMB Interp Troponin I Total Protein Albumin Globulin Albumin/Globulin Ratio Blood Type Antibody Screen Crossmatch 03/11/17 03/11/17 03/11/17 20:00 20:00 21:17 WBC RBC Hgb Hct MCV MCH MCHC RDW Plt Count MPV Neut % (Auto) Lymph % (Auto) [place] % (Auto) Eos % (Auto) Baso % (Auto) Neut # (Auto) Lymph # (Auto) [place] # (Auto) Eos # (Auto) Baso # (Auto) Immature Gran % Nucleated RBC % Immature Gran # Nucleated RBCs # ABG pH 7.401 ABG pCO2 40.0 ABG pO2 145.5 H ABG HCO3 24.3 ABG Total CO2 25.5 ABG O2 Saturation 98.4 ABG Base Excess -0.4 Hemoglobin 10.3 L Hematocrit 30.0 L Potassium 4.4 Glucose 158 H Sodium Chloride Carbon Dioxide Anion Gap BUN Creatinine GFR Calculation BUN/Creatinine Ratio POC Glucose 144 H Calculated Osmolality Calcium Magnesium Total Bilirubin Direct Bilirubin AST ALT Alkaline Phosphatase Total Creatine Kinase 173 D CK-MB (CK-2) 8.6 H CK and CKMB Interp 5.0 Troponin I 1.610 H D Total Protein Albumin Globulin Albumin/Globulin Ratio Blood Type Antibody Screen Crossmatch 03/11/17 03/11/17 03/11/17 22:21 23:35 23:35 WBC RBC Hgb Hct MCV MCH MCHC RDW Plt Count MPV Neut % (Auto) Lymph % (Auto) [place] % (Auto) Eos % (Auto) Baso % (Auto) Neut # (Auto) Lymph # (Auto) [place] # (Auto) Eos # (Auto) Baso # (Auto) Immature Gran % Nucleated RBC % Immature Gran # Nucleated RBCs # ABG pH 7.427 ABG pCO2 38.3 ABG pO2 131.8 H ABG HCO3 24.7 ABG Total CO2 25.9 ABG O2 Saturation 98.3 ABG Base Excess 0.4 Hemoglobin 10.2 L Hematocrit 30.0 L Potassium 4.4 Glucose 136 H Sodium Chloride Carbon Dioxide Anion Gap BUN Creatinine GFR Calculation BUN/Creatinine Ratio POC Glucose 127 H 137 H Calculated Osmolality Calcium Magnesium Total Bilirubin Direct Bilirubin AST ALT Alkaline Phosphatase Total Creatine Kinase CK-MB (CK-2) CK and CKMB Interp Troponin I Total Protein Albumin Globulin Albumin/Globulin Ratio Blood Type Antibody Screen Crossmatch 03/12/17 03/12/17 03/12/17 00:58 02:01 02:24 WBC RBC Hgb Hct MCV MCH MCHC RDW Plt Count MPV Neut % (Auto) Lymph % (Auto) [place] % (Auto) Eos % (Auto) Baso % (Auto) Neut # (Auto) Lymph # (Auto) [place] # (Auto) Eos # (Auto) Baso # (Auto) Immature Gran % Nucleated RBC % Immature Gran # Nucleated RBCs # ABG pH ABG pCO2 ABG pO2 ABG HCO3 ABG Total CO2 ABG O2 Saturation ABG Base Excess Hemoglobin Hematocrit Potassium Glucose Sodium Chloride Carbon Dioxide Anion Gap BUN Creatinine GFR Calculation BUN/Creatinine Ratio POC Glucose 171 H 112 H Calculated Osmolality Calcium Magnesium Total Bilirubin Direct Bilirubin AST ALT Alkaline Phosphatase Total Creatine Kinase 213 D CK-MB (CK-2) 8.3 H CK and CKMB Interp 3.9 Troponin I 1.170 H D Total Protein Albumin Globulin Albumin/Globulin Ratio Blood Type Antibody Screen Crossmatch 03/12/17 03/12/17 03/12/17 03:01 03:04 03:04 WBC 10.9 RBC 3.09 L Hgb 9.7 L Hct 28.1 L MCV 90.9 MCH 31 MCHC 34.5 RDW 13.2 Plt Count 186 MPV 10.6 Neut % (Auto) 85.1 H Lymph % (Auto) 8.0 L [place] % (Auto) 6.2 Eos % (Auto) 0.0 Baso % (Auto) 0.1 Neut # (Auto) 9.3 H Lymph # (Auto) 0.9 L [place] # (Auto) 0.7 Eos # (Auto) 0.0 Baso # (Auto) 0.0 Immature Gran % 0.6 Nucleated RBC % 0.0 Immature Gran # 0.07 Nucleated RBCs # 0.00 ABG pH ABG pCO2 ABG pO2 ABG HCO3 ABG Total CO2 ABG O2 Saturation ABG Base Excess Hemoglobin Hematocrit Potassium 4.4 Glucose 129 H Sodium 142 Chloride 106 Carbon Dioxide 27 Anion Gap 13.4 BUN 13 Creatinine 0.80 GFR Calculation 92 BUN/Creatinine Ratio 16.00 POC Glucose 162 H Calculated Osmolality 284.1 Calcium 8.4 L Magnesium 2.0 Total Bilirubin 0.90 Direct Bilirubin 0.10 AST 16 ALT 14 L Alkaline Phosphatase 48 Total Creatine Kinase CK-MB (CK-2) CK and CKMB Interp Troponin I Total Protein 5.1 L Albumin 3.2 L Globulin 1.9 L Albumin/Globulin Ratio 1.6 Blood Type Antibody Screen Crossmatch 03/12/17 03/12/17 03/12/17 03:04 04:56 06:18 WBC RBC Hgb Hct MCV MCH MCHC RDW Plt Count MPV Neut % (Auto) Lymph % (Auto) [place] % (Auto) Eos % (Auto) Baso % (Auto) Neut # (Auto) Lymph # (Auto) [place] # (Auto) Eos # (Auto) Baso # (Auto) Immature Gran % Nucleated RBC % Immature Gran # Nucleated RBCs # ABG pH 7.438 7.417 ABG pCO2 40.4 42.2 ABG pO2 146.9 H 145.7 H ABG HCO3 26.7 H 26.6 H ABG Total CO2 27.9 H 27.9 H ABG O2 Saturation 98.4 98.3 ABG Base Excess 2.4 1.8 Hemoglobin 10.4 L 10.1 L Hematocrit 31.0 L 30.0 L Potassium 4.1 4.4 Glucose 135 H 121 H Sodium Chloride Carbon Dioxide Anion Gap BUN Creatinine GFR Calculation BUN/Creatinine Ratio POC Glucose 145 H Calculated Osmolality Calcium Magnesium Total Bilirubin Direct Bilirubin AST ALT Alkaline Phosphatase Total Creatine Kinase CK-MB (CK-2) CK and CKMB Interp Troponin I Total Protein Albumin Globulin Albumin/Globulin Ratio Blood Type Antibody Screen Crossmatch 03/12/17 03/12/17 03/12/17 07:04 08:24 08:25 WBC RBC Hgb Hct MCV MCH MCHC RDW Plt Count MPV Neut % (Auto) Lymph % (Auto) [place] % (Auto) Eos % (Auto) Baso % (Auto) Neut # (Auto) Lymph # (Auto) [place] # (Auto) Eos # (Auto) Baso # (Auto) Immature Gran % Nucleated RBC % Immature Gran # Nucleated RBCs # ABG pH 7.434 ABG pCO2 39.6 ABG pO2 115.5 H ABG HCO3 25.9 ABG Total CO2 27.1 H ABG O2 Saturation 97.9 ABG Base Excess 1.6 Hemoglobin Hematocrit Potassium Glucose Sodium Chloride Carbon Dioxide Anion Gap BUN Creatinine GFR Calculation BUN/Creatinine Ratio POC Glucose 101 130 H Calculated Osmolality Calcium Magnesium Total Bilirubin Direct Bilirubin AST ALT Alkaline Phosphatase Total Creatine Kinase CK-MB (CK-2) CK and CKMB Interp Troponin I Total Protein Albumin Globulin Albumin/Globulin Ratio Blood Type Antibody Screen Crossmatch 03/12/17 03/12/17 12:45 Unknown WBC RBC Hgb Hct MCV MCH MCHC RDW Plt Count MPV Neut % (Auto) Lymph % (Auto) [place] % (Auto) Eos % (Auto) Baso % (Auto) Neut # (Auto) Lymph # (Auto) [place] # (Auto) Eos # (Auto) Baso # (Auto) Immature Gran % Nucleated RBC % Immature Gran # Nucleated RBCs # ABG pH ABG pCO2 ABG pO2 ABG HCO3 ABG Total CO2 ABG O2 Saturation ABG Base Excess Hemoglobin Hematocrit Potassium Glucose 221 H Sodium Chloride Carbon Dioxide Anion Gap BUN Creatinine GFR Calculation BUN/Creatinine Ratio POC Glucose 423 H Calculated Osmolality Calcium Magnesium Total Bilirubin Direct Bilirubin AST ALT Alkaline Phosphatase Total Creatine Kinase CK-MB (CK-2) CK and CKMB Interp Troponin I Total Protein Albumin Globulin Albumin/Globulin Ratio Blood Type Antibody Screen Crossmatch - EKG EKG results: interpreted by me Quality Measures - VTE Contraindication to Pharmacological VTE Prophylaxis: High Risk of Bleeding
[2017-03-12] MEDS: oxyCODONE/ACETAMINOPHEN 5-325 MG TABLET PO PRN ×2 (16:17→20:48)
[2017-03-12] MEDS: ZALEPLON 5 MG CAPSULE PO PRN (20:47)
[2017-03-12] MEDS: AMITRIPTYLINE 10 MG TABLET PO SCH (20:49)
[2017-03-13] MEDS: oxyCODONE/ACETAMINOPHEN 5-325 MG TABLET PO PRN ×4 (01:42→11:56)
[2017-03-13] MEDS: KETOROLAC 30 MG/1 ML VIAL IV SCH ×4 (03:00→20:40)
[2017-03-13 04:40] LABS: Basophils % 0.1 % (0.0-0.8); Eosinophils % 0.1 % (0.00-10.9); Hematocrit 28.8 VOL% (42.0-52.0); Hemoglobin 9.8 GM/DL (14.0-18.0); Immature Granulocytes % 0.6 %; Immature Granulocytes Absolute 0.07 #; Lymphocytes # 2.4 10*3/uL (1.4-4.0); Mean Corpuscular Hemoglobin 31 PG (27-34); Mean Corpuscular Volume 92.3 FL (87-102); Mean Platelet Volume 10.7 FL (9.6-12.0); Monocytes % 7.6 % (1.7-12.7); Neutrophils # 9.1 10*3/uL (1.4-7.4); Neutrophils % 72.6 % (38.7-73.9); Platelet Count 238 T/CUMM (130-400); Red Blood Count 3.12 MC/CUMM (3.8-5.5); Red Cell Distribution Width 13.3 % (9.3-17.3); White Blood Count 12.6 T/CUMM (4-12)
[2017-03-13 05:22] LABS: Alanine Aminotransferase 17 U/L (16-61); Albumin 3.3 G/DL (3.4-5.0); Alkaline Phosphatase 52 U/L (45-117); Aspartate Amino Transferase 23 U/L (0-37); Bilirubin,Indirect 0.5 MG/DL (0.0-1.0); Blood Urea Nitrogen 22 MG/DL (7-18); Calcium 8.4 MG/DL (8.5-10.1); Glucose 111 MG/DL (74-106); Magnesium 2.2 MG/DL (1.8-2.4); Potassium 4.4 MMOL/L (3.5-5.1); Sodium 143 MMOL/L (136-145); Total Protein 5.4 G/DL (6.4-8.3)
[2017-03-13] MEDS ORDERED: FUROSEMIDE 40 MG/4 ML VIAL IV ONE (06:00)
--- NOTE | 2017-03-13 08:08 | Cardiothoracic Progress Note ---
Cardiothoracic Subjective Interval history: Patient looks and feels okay. Vital signs are stable and is breathing comfortably. Is beginning to ambulate with minimal assistance. Blood work and chest x-ray all are acceptable for postoperative day 2. We will increase his activities today according to routine postoperative protocol. Overall his progress is satisfactory. Exam (Progress Note) - Constitutional Vitals: Period Temp Pulse Resp BP Sys/[place] Pulse Ox Last 24 Hr 97.7 F-99.1 F 61-84 16-21 80-139/52-67 93-100 Result/EKG - Labs CBC & BMP: 03/13/17 04:00 03/13/17 04:00 Labs: Laboratory Results - last 24 hr 03/12/17 03/12/17 03/12/17 07:04 08:24 08:25 WBC RBC Hgb Hct MCV MCH MCHC RDW Plt Count MPV Neut % (Auto) Lymph % (Auto) [place] % (Auto) Eos % (Auto) Baso % (Auto) Neut # (Auto) Lymph # (Auto) [place] # (Auto) Eos # (Auto) Baso # (Auto) Immature Gran % Nucleated RBC % Immature Gran # Nucleated RBCs # ABG pH 7.434 ABG pCO2 39.6 ABG pO2 115.5 H ABG HCO3 25.9 ABG Total CO2 27.1 H ABG O2 Saturation 97.9 ABG Base Excess 1.6 Sodium Potassium Chloride Carbon Dioxide Anion Gap BUN Creatinine GFR Calculation BUN/Creatinine Ratio Glucose POC Glucose 101 130 H Calculated Osmolality Calcium Magnesium Total Bilirubin Direct Bilirubin Indirect Bilirubin AST ALT Alkaline Phosphatase Total Creatine Kinase CK-MB (CK-2) Troponin I Total Protein Albumin Globulin Albumin/Globulin Ratio 03/12/17 03/12/17 03/12/17 12:45 16:32 19:28 WBC RBC Hgb Hct MCV MCH MCHC RDW Plt Count MPV Neut % (Auto) Lymph % (Auto) [place] % (Auto) Eos % (Auto) Baso % (Auto) Neut # (Auto) Lymph # (Auto) [place] # (Auto) Eos # (Auto) Baso # (Auto) Immature Gran % Nucleated RBC % Immature Gran # Nucleated RBCs # ABG pH ABG pCO2 ABG pO2 ABG HCO3 ABG Total CO2 ABG O2 Saturation ABG Base Excess Sodium Potassium Chloride Carbon Dioxide Anion Gap BUN Creatinine GFR Calculation BUN/Creatinine Ratio Glucose POC Glucose 423 H 157 H 207 H Calculated Osmolality Calcium Magnesium Total Bilirubin Direct Bilirubin Indirect Bilirubin AST ALT Alkaline Phosphatase Total Creatine Kinase CK-MB (CK-2) Troponin I Total Protein Albumin Globulin Albumin/Globulin Ratio 03/12/17 03/13/17 03/13/17 Unknown 04:00 04:00 WBC 12.6 H RBC 3.12 L Hgb 9.8 L Hct 28.8 L MCV 92.3 MCH 31 MCHC 34.0 RDW 13.3 Plt Count 238 D MPV 10.7 Neut % (Auto) 72.6 Lymph % (Auto) 19.0 L [place] % (Auto) 7.6 Eos % (Auto) 0.1 Baso % (Auto) 0.1 Neut # (Auto) 9.1 H Lymph # (Auto) 2.4 [place] # (Auto) 1.0 H Eos # (Auto) 0.0 Baso # (Auto) 0.0 Immature Gran % 0.6 Nucleated RBC % 0.0 Immature Gran # 0.07 Nucleated RBCs # 0.00 ABG pH ABG pCO2 ABG pO2 ABG HCO3 ABG Total CO2 ABG O2 Saturation ABG Base Excess Sodium 143 Potassium 4.4 Chloride 106 Carbon Dioxide 28 Anion Gap 13.4 BUN 22 H Creatinine 1.10 GFR Calculation 69 BUN/Creatinine Ratio 20.00 Glucose 221 H 111 H POC Glucose Calculated Osmolality 288.0 Calcium 8.4 L Magnesium 2.2 Total Bilirubin 0.60 Direct Bilirubin 0.10 Indirect Bilirubin 0.5 AST 23 ALT 17 Alkaline Phosphatase 52 Total Creatine Kinase 399 H D CK-MB (CK-2) 5.0 H Troponin I 1.630 H D Total Protein 5.4 L Albumin 3.3 L Globulin 2.1 L Albumin/Globulin Ratio 1.5 03/13/17 07:43 WBC RBC Hgb Hct MCV MCH MCHC RDW Plt Count MPV Neut % (Auto) Lymph % (Auto) [place] % (Auto) Eos % (Auto) Baso % (Auto) Neut # (Auto) Lymph # (Auto) [place] # (Auto) Eos # (Auto) Baso # (Auto) Immature Gran % Nucleated RBC % Immature Gran # Nucleated RBCs # ABG pH ABG pCO2 ABG pO2 ABG HCO3 ABG Total CO2 ABG O2 Saturation ABG Base Excess Sodium Potassium Chloride Carbon Dioxide Anion Gap BUN Creatinine GFR Calculation BUN/Creatinine Ratio Glucose POC Glucose 106 Calculated Osmolality Calcium Magnesium Total Bilirubin Direct Bilirubin Indirect Bilirubin AST ALT Alkaline Phosphatase Total Creatine Kinase CK-MB (CK-2) Troponin I Total Protein Albumin Globulin Albumin/Globulin Ratio Quality Measures - VTE Contraindication to Pharmacological VTE Prophylaxis: High Risk of Bleeding
[2017-03-13] MEDS: INSULIN LISPRO 100 UNIT/ML SUBCUT SCH ×4 (08:12→21:01)
[2017-03-13] MEDS: BACLOFEN 10 MG TABLET PO SCH ×3 (08:19→20:43)
[2017-03-13] MEDS: ASPIRIN EC 325 MG TABLET PO SCH (08:19)
[2017-03-13] MEDS: NABUMETONE 750 MG TABLET PO SCH ×2 (08:19→20:43)
[2017-03-13] MEDS: GABAPENTIN 400 MG CAPSULE PO SCH ×2 (08:19→20:42)
[2017-03-13] MEDS: predniSONE 20 MG TABLET PO SCH (08:20)
[2017-03-13] MEDS: FERROUS SULFATE 325 MG TABLET PO SCH (08:20)
[2017-03-13] MEDS: DOCUSATE SODIUM 100 MG CAPSULE PO SCH (08:20)
[2017-03-13] MEDS: PANTOPRAZOLE 40 MG TABLET PO SCH (08:22)
[2017-03-13] MEDS: CHLORHEXIDINE 0.12% ORAL RINSE 60 ML BOTTLE SWISH/SPIT SCH ×2 (08:24→20:43)
--- NOTE | 2017-03-13 08:56 | Anesthesia Post-Op ---
Anesthesia Post OP - Post Ansesthetic Evaluation Patient seen in post op: Yes Resp: within normal limits CV: within normal limits Mental: within normal limits Temp: within normal limits [id number]: within normal limits Nausea and Vomiting: within normal limits Pain: within normal limits
--- NOTE | 2017-03-13 10:15 | XRay Report ---
Exam: XR chest 1V portable Indication: Shortness of breath Comparison study: 03/12/2017 radiograph Findings: Right sided central venous catheter is in similar position. Cardia silhouette is enlarged, similar to prior. Mediastinal contours appear within normal limits. Minimal perihilar and basilar interstitial opacities are noted, slightly increased from prior. There is also slight increased elevation of the right hemidiaphragm. There is no pneumothorax. No significant pleural effusion is identified. Median sternotomy wiring is again noted Impression: Similar cardiomegaly. Slight increased perihilar and basilar interstitial opacities may represent developing atelectasis or interstitial edema. Stable position of right-sided central venous catheter. Interval removal of the esophagogastric tube. PROCEDURE INTERPRETED AT [facility] DEPARTMENT OF RADIOLOGY Final Report Signed by: Feliciano Whitaker
--- NOTE | 2017-03-13 11:25 | Event Note ---
I have reviewed Mr Cardenas's glucose record. One was over 400, but other than that they are well controlled and more recently in normal range. Continue SSI for now.
--- NOTE | 2017-03-13 12:20 | Cardiology Progress Note ---
Assessment and Plan (1) S/P AVR (aortic valve replacement) Status: Acute Assessment and plan: He is doing very well status post aortic valve replacement with a bioprosthetic valve. Current Visit: Yes (2) Aortic stenosis Status: Acute Assessment and plan: Status post 23mm pericardial aortic valve replacement this a.m. per Dr. Leblanc. Current Visit: Yes (3) Recurrent falls Status: Chronic Assessment and plan: Many of these may actually be related to chronic narcotic use but also could have been related to his severe aortic stenosis which has been treated with valve replacement. Current Visit: Yes (4) Syncope Status: Acute Assessment and plan: Most likely secondary to patient's aortic stenosis, status post aortic valve replacement. Current Visit: Yes (5) Dementia Status: Chronic Assessment and plan: Stable at present. Current Visit: Yes (6) Hard of hearing Status: Chronic Assessment and plan: Chronic. Current Visit: Yes Cardiology - PN: Subj Interval history: The patient continues to do well. He denies any new complaints today. His rhythm remained stable. He seems to be making excellent progress. He is not having any palpitations, angina, or other cardiac symptoms. Current Medications Acetaminophen (Tylenol Tab) 650 mg PO Q4H PRN PRN Reason: Temperature greater than 100F Acetaminophen/Codeine Phosphate (Tylenol/Codeine #3) 1 tablet PO Q6H PRN PRN Reason: Pain Al Hydrox/Mg Hydrox/Simethicone (Mylanta Max Strength Liquid) 30 ml PO Q4H PRN PRN Reason: Dyspepsia Amitriptyline HCl (Elavil) 10 mg PO BEDTIME [facility] Last Admin: 03/12/17 20:49 Dose: 10 mg Aspirin () 325 mg PO DAILY [facility] Last Admin: 03/13/17 08:19 Dose: 325 mg Baclofen (Lioresal) 10 mg PO TID [facility] Last Admin: 03/13/17 08:19 Dose: 10 mg Chlorhexidine Gluconate (Peridex) 15 ml SWISH/SPIT BID [facility] Last Admin: 03/13/17 08:24 Dose: 15 ml Clonazepam (Klonopin) 1 mg PO BID PRN PRN Reason: Anxiety Last Admin: 03/12/17 20:49 Dose: 1 mg Dextrose/Water (D50) 25 gm IV PRN PRN PRN Reason: Hypoglycemia with IV access Docusate Sodium (Colace Cap) 100 mg PO DAILY [facility] Last Admin: 03/13/17 08:20 Dose: 100 mg Ferrous Sulfate (Feosol Original Tab) 325 mg PO DAILY [facility] Last Admin: 03/13/17 08:20 Dose: 325 mg Gabapentin (Neurontin Cap/Tab) 400 mg PO BID [facility] Last Admin: 03/13/17 08:19 Dose: 400 mg Glucagon () 1 mg IM PRN PRN PRN Reason: Hypoglycemia w/o IV access Magnesium Sulfate 4 gm/ Premix 100 mls @ 25 mls/hr IV .PER PROTOCOL PRN; Protocol PRN Reason: Per Protocol Magnesium Sulfate 2 gm/ Premix 50 mls @ 25 mls/hr IV .PER PROTOCOL PRN; Protocol PRN Reason: Per Protocol Insulin Human Lispro (Humalog) 0 unit SUBCUT ACHS [facility] PRN Reason: Protocol Last Admin: 03/13/17 08:12 Dose: Not Given Ketorolac Tromethamine (Toradol Inj) 30 mg IV Q6H [facility] Stop: 03/15/17 02:50 Last Admin: 03/13/17 08:14 Dose: 30 mg Magnesium Hydroxide (Milk Of Magnesia) 30 ml PO Q6H PRN PRN Reason: Constipation Morphine Sulfate () 2 mg IV Q2H PRN PRN Reason: Pain Moderate (4-7) Nabumetone (Relafen) 750 mg PO BID [facility] Last Admin: 03/13/17 08:19 Dose: 750 mg Ondansetron HCl (Zofran Inj) 4 mg IV Q4H PRN PRN Reason: Nausea/Vomiting Oxycodone/Acetaminophen (Percocet 5-325) 1 tablet PO Q4H PRN PRN Reason: Pain Mild (1-3) Last Admin: 03/13/17 11:56 Dose: 1 tablet Pantoprazole Sodium (Protonix Tab) 40 mg PO DAILY [facility] Last Admin: 03/13/17 08:22 Dose: 40 mg Potassium Chloride (K Dur) 20 meq PO .PER PROTOCOL PRN; Protocol PRN Reason: Per Protocol Prednisone () 20 mg PO DAILY [facility] Last Admin: 03/13/17 08:20 Dose: 20 mg Tizanidine HCl (Zanaflex) 4 mg PO Q8H PRN PRN Reason: Pain Last Admin: 03/12/17 09:20 Dose: 4 mg Zaleplon (Sonata) 5 mg PO BEDTIME PRN PRN Reason: Sleep Last Admin: 03/12/17 20:47 Dose: 5 mg Exam (Progress Note) - Constitutional Vitals: Period Temp Pulse Resp BP Sys/Delgadillo Pulse Ox Last 24 Hr 97.9 F-99.2 F 72-98 14-21 107-127/53-68 92-98 Exam: General: Frail, elderly HEENT: Normocephalic, atraumatic Neck: Supple Neck, Midline Trachea Cardiac: Regular rhythm, 2/6 systolic murmur, no gallop, no rub Surgical wounds: Clean and dressed Lungs: Clear to Ascultation, No Wheeze, Rales, Rhonchi Neuro: Cranial Nerve 2-12 Intact, extremely hard of hearing Abdomen: Soft, Active Bowel Sounds, No Masses, No Pulsations/Bruits Skin: Normal color, no rash Extremities: No Clubbing, No Cyanosis, No Edema, Normal Upper Extr. Pulses Musculoskeletal: No acute abnormality noted Psychiatric: The patient is alert and oriented. The patient has a flat affect but does not appear to be anxious or depressed. Result/EKG - Labs CBC & BMP: 03/13/17 04:00 03/13/17 04:00 Lab Results: I have reviewed the past 24 hour labs Labs: Laboratory Results - last 24 hr 03/12/17 03/12/17 03/12/17 12:45 16:32 19:28 WBC RBC Hgb Hct MCV MCH MCHC RDW Plt Count MPV Neut % (Auto) Lymph % (Auto) [place] % (Auto) Eos % (Auto) Baso % (Auto) Neut # (Auto) Lymph # (Auto) [place] # (Auto) Eos # (Auto) Baso # (Auto) Immature Gran % Nucleated RBC % Immature Gran # Nucleated RBCs # Sodium Potassium Chloride Carbon Dioxide Anion Gap BUN Creatinine GFR Calculation BUN/Creatinine Ratio Glucose POC Glucose 423 H 157 H 207 H Calculated Osmolality Calcium Magnesium Total Bilirubin Direct Bilirubin Indirect Bilirubin AST ALT Alkaline Phosphatase Total Creatine Kinase CK-MB (CK-2) Troponin I Total Protein Albumin Globulin Albumin/Globulin Ratio 03/12/17 03/13/17 03/13/17 Unknown 04:00 04:00 WBC 12.6 H RBC 3.12 L Hgb 9.8 L Hct 28.8 L MCV 92.3 MCH 31 MCHC 34.0 RDW 13.3 Plt Count 238 D MPV 10.7 Neut % (Auto) 72.6 Lymph % (Auto) 19.0 L [place] % (Auto) 7.6 Eos % (Auto) 0.1 Baso % (Auto) 0.1 Neut # (Auto) 9.1 H Lymph # (Auto) 2.4 [place] # (Auto) 1.0 H Eos # (Auto) 0.0 Baso # (Auto) 0.0 Immature Gran % 0.6 Nucleated RBC % 0.0 Immature Gran # 0.07 Nucleated RBCs # 0.00 Sodium 143 Potassium 4.4 Chloride 106 Carbon Dioxide 28 Anion Gap 13.4 BUN 22 H Creatinine 1.10 GFR Calculation 69 BUN/Creatinine Ratio 20.00 Glucose 221 H 111 H POC Glucose Calculated Osmolality 288.0 Calcium 8.4 L Magnesium 2.2 Total Bilirubin 0.60 Direct Bilirubin 0.10 Indirect Bilirubin 0.5 AST 23 ALT 17 Alkaline Phosphatase 52 Total Creatine Kinase 399 H D CK-MB (CK-2) 5.0 H Troponin I 1.630 H D Total Protein 5.4 L Albumin 3.3 L Globulin 2.1 L Albumin/Globulin Ratio 1.5 03/13/17 07:43 WBC RBC Hgb Hct MCV MCH MCHC RDW Plt Count MPV Neut % (Auto) Lymph % (Auto) [place] % (Auto) Eos % (Auto) Baso % (Auto) Neut # (Auto) Lymph # (Auto) [place] # (Auto) Eos # (Auto) Baso # (Auto) Immature Gran % Nucleated RBC % Immature Gran # Nucleated RBCs # Sodium Potassium Chloride Carbon Dioxide Anion Gap BUN Creatinine GFR Calculation BUN/Creatinine Ratio Glucose POC Glucose 106 Calculated Osmolality Calcium Magnesium Total Bilirubin Direct Bilirubin Indirect Bilirubin AST ALT Alkaline Phosphatase Total Creatine Kinase CK-MB (CK-2) Troponin I Total Protein Albumin Globulin Albumin/Globulin Ratio - EKG EKG results: interpreted by me Quality Measures - VTE Contraindication to Pharmacological VTE Prophylaxis: High Risk of Bleeding
[2017-03-13] MEDS: LEVOFLOXACIN 500 MG TABLET PO SCH (17:07)
[2017-03-13] MEDS: ZALEPLON 5 MG CAPSULE PO PRN (20:42)
[2017-03-13] MEDS: AMITRIPTYLINE 10 MG TABLET PO SCH (20:42)
[2017-03-13] MEDS ORDERED: AMITRIPTYLINE 10 MG TABLET PO SCH (21:00)
[2017-03-13] MEDS ORDERED: GABAPENTIN 400 MG CAPSULE PO SCH (21:00)
[2017-03-14] MEDS: oxyCODONE/ACETAMINOPHEN 5-325 MG TABLET PO PRN (00:47)
[2017-03-14] MEDS: KETOROLAC 30 MG/1 ML VIAL IV SCH ×4 (02:48→21:31)
[2017-03-14 05:24] LABS: Basophils % 0.1 % (0.0-0.8); Eosinophils # 0.1 10*3/uL (0.0-0.87); Eosinophils % 0.5 % (0.00-10.9); Hematocrit 28.7 VOL% (42.0-52.0); Hemoglobin 9.8 GM/DL (14.0-18.0); Immature Granulocytes % 0.5 %; Immature Granulocytes Absolute 0.05 #; Lymphocytes # 2.7 10*3/uL (1.4-4.0); Lymphocytes % 25.2 % (21.2-54.2); Mean Corpuscular HGB Conc 34.1 GM/DL (32-36); Mean Corpuscular Hemoglobin 32 PG (27-34); Mean Corpuscular Volume 92.9 FL (87-102); Mean Platelet Volume 10.4 FL (9.6-12.0); Monocytes # 1.1 10*3/uL (0.11-0.8); Monocytes % 10.1 % (1.7-12.7); Neutrophils # 6.9 10*3/uL (1.4-7.4); Neutrophils % 63.6 % (38.7-73.9); Platelet Count 249 T/CUMM (130-400); Red Blood Count 3.09 MC/CUMM (3.8-5.5); Red Cell Distribution Width 13.1 % (9.3-17.3); White Blood Count 10.8 T/CUMM (4-12)
[2017-03-14 06:08] LABS: Alanine Aminotransferase 16 U/L (16-61); Albumin 3.2 G/DL (3.4-5.0); Alkaline Phosphatase 55 U/L (45-117); Aspartate Amino Transferase 16 U/L (0-37); Bilirubin,Indirect 0.7 MG/DL (0.0-1.0); Blood Urea Nitrogen 15 MG/DL (7-18); Calcium 8.4 MG/DL (8.5-10.1); Glucose 102 MG/DL (74-106); Magnesium 2.4 MG/DL (1.8-2.4); Osmolality,Calculated 281.3 MOS/KG (273-304); Potassium 3.9 MMOL/L (3.5-5.1); Sodium 141 MMOL/L (136-145); Total Protein 5.7 G/DL (6.4-8.3)
[2017-03-14 06:10] LABS: Troponin I Only 0.925 NG/ML (0.00-0.045)
--- NOTE | 2017-03-14 06:31 | Cardiothoracic Progress Note ---
Cardiothoracic Subjective Interval history: Patient had a reasonably stable night. He did have some bloody drainage from the midpoint in his sternotomy. This appears to be benign but we will watch it closely. His laboratory work shows that his hematocrit is stable and his results are otherwise compatible with a normal postoperative course. Chest x- ray is clearing. Overall his progress appears satisfactory. Exam (Progress Note) - Constitutional Vitals: Period Temp Pulse Resp BP Sys/Delgadillo Pulse Ox Last 24 Hr 98.2 F-100.3 F 74-110 14-20 121-150/68-102 92-98 Result/EKG - Labs CBC & BMP: 03/14/17 04:45 03/14/17 04:45 Labs: Laboratory Results - last 24 hr 03/13/17 03/13/17 03/13/17 07:43 12:23 16:31 WBC RBC Hgb Hct MCV MCH MCHC RDW Plt Count MPV Neut % (Auto) Lymph % (Auto) [place] % (Auto) Eos % (Auto) Baso % (Auto) Neut # (Auto) Lymph # (Auto) [place] # (Auto) Eos # (Auto) Baso # (Auto) Immature Gran % Nucleated RBC % Immature Gran # Nucleated RBCs # Sodium Potassium Chloride Carbon Dioxide Anion Gap BUN Creatinine GFR Calculation BUN/Creatinine Ratio Glucose POC Glucose 106 173 H 190 H Calculated Osmolality Calcium Magnesium Total Bilirubin Direct Bilirubin Indirect Bilirubin AST ALT Alkaline Phosphatase Total Creatine Kinase CK-MB (CK-2) Troponin I Total Protein Albumin Globulin Albumin/Globulin Ratio 03/13/17 03/14/17 03/14/17 20:34 04:45 04:45 WBC 10.8 RBC 3.09 L Hgb 9.8 L Hct 28.7 L MCV 92.9 MCH 32 MCHC 34.1 RDW 13.1 Plt Count 249 MPV 10.4 Neut % (Auto) 63.6 Lymph % (Auto) 25.2 [place] % (Auto) 10.1 Eos % (Auto) 0.5 Baso % (Auto) 0.1 Neut # (Auto) 6.9 Lymph # (Auto) 2.7 [place] # (Auto) 1.1 H Eos # (Auto) 0.1 Baso # (Auto) 0.0 Immature Gran % 0.5 Nucleated RBC % 0.0 Immature Gran # 0.05 Nucleated RBCs # 0.00 Sodium 141 Potassium 3.9 Chloride 104 Carbon Dioxide 30 Anion Gap 10.9 BUN 15 Creatinine 0.80 GFR Calculation 101 BUN/Creatinine Ratio 18.00 Glucose 102 POC Glucose 167 H Calculated Osmolality 281.3 Calcium 8.4 L Magnesium 2.4 Total Bilirubin 0.80 Direct Bilirubin 0.10 Indirect Bilirubin 0.7 AST 16 ALT 16 Alkaline Phosphatase 55 Total Creatine Kinase 197 D CK-MB (CK-2) 1.0 Troponin I 0.925 H D Total Protein 5.7 L Albumin 3.2 L Globulin 2.5 Albumin/Globulin Ratio 1.2 Quality Measures - VTE Contraindication to Pharmacological VTE Prophylaxis: High Risk of Bleeding Specialty Discharge - Follow Up or Referrals
--- NOTE | 2017-03-14 08:17 | XRay Report ---
History: Shortness of breath Date: 03/14/2017 Study: Chest x-ray AP portable Comparison exam: 03/13/2017 The right IJ central line is positioned with its tip over the right atrium. There is stable cardiomegaly. The mediastinal contours are unchanged in this patient status post prior median sternotomy. There is no evidence of a pneumothorax. There is mild atelectatic change in the lung bases, grossly similar overall. There is no increasing pleural effusion. Osseous structures are unchanged. Impression: Continued mild bibasilar atelectatic change. Stable postoperative chest otherwise PROCEDURE INTERPRETED AT [facility] DEPARTMENT OF RADIOLOGY Final Report Signed by: Dr. Tanya Joseph
[2017-03-14] MEDS: INSULIN LISPRO 100 UNIT/ML SUBCUT SCH ×4 (08:27→21:39)
[2017-03-14] MEDS ORDERED: predniSONE 20 MG TABLET PO SCH (09:00)
[2017-03-14] MEDS: GABAPENTIN 400 MG CAPSULE PO SCH ×2 (09:32→21:32)
[2017-03-14] MEDS: POTASSIUM CHLORIDE 20 MEQ TABLET PO PRN ×2 (09:32→09:34)
[2017-03-14] MEDS: BACLOFEN 10 MG TABLET PO SCH ×3 (09:32→21:32)
[2017-03-14] MEDS: NABUMETONE 750 MG TABLET PO SCH ×2 (09:32→21:32)
[2017-03-14] MEDS: LEVOFLOXACIN 500 MG TABLET PO SCH (09:33)
[2017-03-14] MEDS: ASPIRIN EC 325 MG TABLET PO SCH (09:33)
[2017-03-14] MEDS: PANTOPRAZOLE 40 MG TABLET PO SCH (09:33)
[2017-03-14] MEDS: FERROUS SULFATE 325 MG TABLET PO SCH (09:33)
[2017-03-14] MEDS: predniSONE 20 MG TABLET PO SCH (09:33)
[2017-03-14] MEDS: DOCUSATE SODIUM 100 MG CAPSULE PO SCH (09:33)
[2017-03-14] MEDS: CHLORHEXIDINE 0.12% ORAL RINSE 60 ML BOTTLE SWISH/SPIT SCH ×2 (09:34→21:38)
--- NOTE | 2017-03-14 12:23 | Pathology Report from [facility] ---
[facility] ACCESSION # : [id number] PATIENT NAME : Jr. Cardenas James W. ORDERING DR : ARACELI FRANKS MD CLINICAL HX: Aortic stenosis POST-OP DX: Same SPECIMEN INFO: Aortic valve tissue GROSS DESCRIPTION: Received in formalin labeled ANNABELLE CARDENAS JR & AORTIC VALVE TISSUE are six fragments of yellow white endarterectomy tissue specimens measuring 5.8 x 2.1 cm with areas of calcification and thickening present. Community Relations Advisor sections are submitted in one cassette following decalcification. 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 COLLECTED DATE: 03/13/2017 [facility] REPORT DATE: 03/14/2017 ELECTRONICALLY SIGNED BY: Gaston Sage M.D. 03/14/2017 - 9:49:03 [facility]
--- NOTE | 2017-03-14 12:57 | Hospitalist Progress Note ---
Assessment and Plan (1) Severe aortic stenosis Status: Acute Assessment and plan: POD [address] Leblanc directing psot op care with cardiology. Glucose range 125-190. SSI. No diabetes pre op. Glucose coming down each day. Change to oral is still needs something at discharge. Current Visit: Yes (2) Altered mental status Status: Resolved Current Visit: Yes (3) Recurrent falls Status: Chronic Current Visit: Yes (4) Acute kidney injury Status: Resolved Current Visit: Yes Hospitalist: Subjective Interval history: No complaints.Up in chair. Denies pain or shortness of breath. I confirmed he is eating a diabetic diet. Exam - Constitutional Vitals: Period Temp Pulse Resp BP Sys/Delgadillo Pulse Ox Last 24 Hr 98.2 F-100.3 F 74-106 16-20 127-150/73-81 94-98 General appearance: normal weight, no acute distress - Eye Eye exam: Present: EOMI. Absent: scleral icterus - Respiratory Respiratory exam: Present: clear to auscultation bilaterally Results - Labs CBC & BMP: 03/14/17 04:45 03/14/17 04:45 Lab Results: I have reviewed the past 24 hour labs Quality Measures - VTE Contraindication to Pharmacological VTE Prophylaxis: High Risk of Bleeding Specialty Discharge - Follow Up or Referrals
--- NOTE | 2017-03-14 21:13 | Cardiology Progress Note ---
Rere Kaufman April RN, am scribing for, and in the presence of, Miguel Skinner MD 21:13. Assessment and Plan (1) S/P AVR (aortic valve replacement) Status: Acute Assessment and plan: Recovering post aVR Blood pressure and pulse are slightly elevated Start carvedilol 3.125 mg p.o. twice daily with hold parameters Watch for any further drainage of the chest wound Current Visit: Yes (2) Aortic stenosis Status: Acute Current Visit: Yes (3) Recurrent falls Status: Chronic Current Visit: Yes (4) Syncope Status: Acute Current Visit: Yes (5) Dementia Status: Chronic Current Visit: Yes (6) Hard of hearing Status: Chronic Current Visit: Yes Cardiology - PN: Subj Interval history: Fusion Analyst: New to Dr. Youssef Mr. romo is a 67-year-old man who has previously been seen by cavalry officer. He is extremely hard of hearing and has some dementia. He has a history of arthritis, multiple sclerosis and bone cancer. They were unaware if he had undergone any treatment for the cancer. We were asked to the patient in consultation because of severe aortic stenosis on his echo done this admission. He was seen in consultation by Dr. Leblanc and underwent aortic valve replacement on March 11. Today he is seen resting in bed in no acute distress. Dressing to his sternal wound is dry and intact. His sister is at bedside and states he did have some bleeding from his wound last night, Dr. Leblanc has seen this. He denies any chest pain other than soreness at incision site. He denies any shortness of breath, palpitations, or dizziness. He is currently in sinus rhythm with heart rates in the 70s. Earlier today he was noted to be sinus tach in the 140s. The nurses this is when he was up pushing his teeth. He was asymptomatic with this episode. His H&H today is 9.8 and 28.7. Troponin continues to trend down , this morning it is 0.925. Exam (Progress Note) - Constitutional Vitals: Period Temp Pulse Resp BP Sys/Delgadillo Pulse Ox Last 24 Hr 98.2 F-100.3 F 74-106 16-20 127-150/73-81 94-98 General appearance: normal weight, no acute distress - Head Head exam: Absent: abrasion, hematoma - Eye Eye exam: Absent: periorbital swelling, laceration to eyelids - Neck Neck exam: Absent: tenderness - Respiratory Respiratory exam: Present: clear to auscultation bilaterally, chest wall tenderness. Absent: accessory muscle use - Cardiovascular Cardiovascular exam: Present: regular rate and rhythm, systolic murmur, tachycardia - GI/Abdominal GI/Abdominal exam: Present: normal bowel sounds, soft. Absent: distended, tenderness - Extremities Exam Extremities exam: Absent: edema - Neurological Exam Neurological exam: Present: alert, oriented X3 - Psychiatric Psychiatric exam: Present: normal affect, normal mood - Skin Skin exam: Present: warm, dry, other (Sternal incision dressing noted to be dry and intact) Result/EKG - Labs CBC & BMP: 03/14/17 04:45 03/14/17 04:45 Lab Results: I have reviewed the past 24 hour labs Labs: Laboratory Results - last 24 hr 03/13/17 03/13/17 03/13/17 12:23 16:31 20:34 WBC RBC Hgb Hct MCV MCH MCHC RDW Plt Count MPV Neut % (Auto) Lymph % (Auto) [place] % (Auto) Eos % (Auto) Baso % (Auto) Neut # (Auto) Lymph # (Auto) [place] # (Auto) Eos # (Auto) Baso # (Auto) Immature Gran % Nucleated RBC % Immature Gran # Nucleated RBCs # Sodium Potassium Chloride Carbon Dioxide Anion Gap BUN Creatinine GFR Calculation BUN/Creatinine Ratio Glucose POC Glucose 173 H 190 H 167 H Calculated Osmolality Calcium Magnesium Total Bilirubin Direct Bilirubin Indirect Bilirubin AST ALT Alkaline Phosphatase Total Creatine Kinase CK-MB (CK-2) Troponin I Total Protein Albumin Globulin Albumin/Globulin Ratio 03/14/17 03/14/17 03/14/17 04:45 04:45 07:57 WBC 10.8 RBC 3.09 L Hgb 9.8 L Hct 28.7 L MCV 92.9 MCH 32 MCHC 34.1 RDW 13.1 Plt Count 249 MPV 10.4 Neut % (Auto) 63.6 Lymph % (Auto) 25.2 [place] % (Auto) 10.1 Eos % (Auto) 0.5 Baso % (Auto) 0.1 Neut # (Auto) 6.9 Lymph # (Auto) 2.7 [place] # (Auto) 1.1 H Eos # (Auto) 0.1 Baso # (Auto) 0.0 Immature Gran % 0.5 Nucleated RBC % 0.0 Immature Gran # 0.05 Nucleated RBCs # 0.00 Sodium 141 Potassium 3.9 Chloride 104 Carbon Dioxide 30 Anion Gap 10.9 BUN 15 Creatinine 0.80 GFR Calculation 101 BUN/Creatinine Ratio 18.00 Glucose 102 POC Glucose 98 Calculated Osmolality 281.3 Calcium 8.4 L Magnesium 2.4 Total Bilirubin 0.80 Direct Bilirubin 0.10 Indirect Bilirubin 0.7 AST 16 ALT 16 Alkaline Phosphatase 55 Total Creatine Kinase 197 D CK-MB (CK-2) 1.0 Troponin I 0.925 H D Total Protein 5.7 L Albumin 3.2 L Globulin 2.5 Albumin/Globulin Ratio 1.2 03/14/17 11:39 WBC RBC Hgb Hct MCV MCH MCHC RDW Plt Count MPV Neut % (Auto) Lymph % (Auto) [place] % (Auto) Eos % (Auto) Baso % (Auto) Neut # (Auto) Lymph # (Auto) [place] # (Auto) Eos # (Auto) Baso # (Auto) Immature Gran % Nucleated RBC % Immature Gran # Nucleated RBCs # Sodium Potassium Chloride Carbon Dioxide Anion Gap BUN Creatinine GFR Calculation BUN/Creatinine Ratio Glucose POC Glucose 125 H Calculated Osmolality Calcium Magnesium Total Bilirubin Direct Bilirubin Indirect Bilirubin AST ALT Alkaline Phosphatase Total Creatine Kinase CK-MB (CK-2) Troponin I Total Protein Albumin Globulin Albumin/Globulin Ratio - EKG EKG results: interpreted by me EKG shows: sinus rhythm Quality Measures - VTE Contraindication to Pharmacological VTE Prophylaxis: High Risk of Bleeding Specialty Discharge - Follow Up or Referrals Susanne Kaufman Dale, MD, personally performed the services described in this documentation, ascribed by Helena Jernigan RN in my presence, and it is both accurate and complete .
[2017-03-14] MEDS: CARVEDILOL 3.125 MG TABLET PO SCH (21:32)
[2017-03-14] MEDS: AMITRIPTYLINE 10 MG TABLET PO SCH (21:32)
[2017-03-15] MEDS: KETOROLAC 30 MG/1 ML VIAL IV SCH (02:46)
[2017-03-15] MEDS: oxyCODONE/ACETAMINOPHEN 5-325 MG TABLET PO PRN ×3 (04:36→21:03)
--- NOTE | 2017-03-15 06:28 | Cardiothoracic Progress Note ---
Cardiothoracic Subjective Interval history: No real problems through the night. Vital signs are stable and he has been breathing comfortably. He has been gradually increasing his activity during the daytime. We are working on post hospital placement and have asked social security assessor to help with this. His progress has been satisfactory and he will be ready for hospital discharge before very long. Exam (Progress Note) - Constitutional Vitals: Period Temp Pulse Resp BP Sys/Delgadillo Pulse Ox Last 24 Hr 97.7 F-99.5 F 71-106 18-200 127-163/65-97 94-100 Result/EKG - Labs CBC & BMP: 03/14/17 04:45 03/14/17 04:45 Labs: Laboratory Results - last 24 hr 03/14/17 03/14/17 03/14/17 07:57 11:39 15:03 POC Glucose 98 125 H 155 H 03/14/17 19:33 POC Glucose 135 H Quality Measures - VTE Contraindication to Pharmacological VTE Prophylaxis: High Risk of Bleeding Specialty Discharge - Follow Up or Referrals
[2017-03-15] MEDS: INSULIN LISPRO 100 UNIT/ML SUBCUT SCH ×4 (07:54→21:06)
[2017-03-15] MEDS: predniSONE 20 MG TABLET PO SCH (08:39)
[2017-03-15] MEDS: BACLOFEN 10 MG TABLET PO SCH ×3 (08:39→21:04)
[2017-03-15] MEDS: NABUMETONE 750 MG TABLET PO SCH ×2 (08:39→21:04)
[2017-03-15] MEDS: DOCUSATE SODIUM 100 MG CAPSULE PO SCH (08:39)
[2017-03-15] MEDS: ASPIRIN EC 325 MG TABLET PO SCH (08:39)
[2017-03-15] MEDS: PANTOPRAZOLE 40 MG TABLET PO SCH (08:39)
[2017-03-15] MEDS: FERROUS SULFATE 325 MG TABLET PO SCH (08:39)
[2017-03-15] MEDS: GABAPENTIN 400 MG CAPSULE PO SCH ×2 (08:39→21:04)
[2017-03-15] MEDS: LEVOFLOXACIN 500 MG TABLET PO SCH (08:39)
[2017-03-15] MEDS: CARVEDILOL 3.125 MG TABLET PO SCH ×2 (09:02→21:03)
[2017-03-15] MEDS: CHLORHEXIDINE 0.12% ORAL RINSE 60 ML BOTTLE SWISH/SPIT SCH ×2 (09:56→21:06)
--- NOTE | 2017-03-15 14:25 | Hospitalist Progress Note ---
Hospitalist: Subjective Interval history: Patient ambulating in the decker. He is tolerating oral intake well. Last bowel movement was overnight. No melena or bright red blood per rectum reported. Patient had low-grade temp overnight but self resolved and cough is not productive. Awaiting bed placement at [facility] for rehab Exam - Constitutional Vitals: Period Temp Pulse Resp BP Sys/Delgadillo Pulse Ox Last 24 Hr 97.7 F-99.5 F 71-99 18-200 116-163/65-97 95-100 Exam: GEN: Awake alert and oriented 3 HEENT: PERRL EOMI sclera clear CV: RRR no M CHEST: clear wire, mid chest no evidence of dehiscence ABD: Soft, NT, ND, +BS Warm: no c/c/e Results - Labs CBC & BMP: 03/14/17 04:45 03/14/17 04:45 - Impressions (1) Severe aortic stenosis Status: Acute Assessment and plan: S/P AVR 03/12 Dr Leblanc directing psot op care with cardiology. (2) Hyperglycemia Glucose range 125-190. SSI. No diabetes pre op. Glucose coming down each day. Change to oral is still needs something at discharge. Current Visit: Yes (3) Acute encephalopathy Status: Resolved Current Visit: Yes (4) Recurrent falls Status: Chronic Current Visit: Yes (5) Acute kidney injury Status: Resolved Current Visit: Yes Awaiting placement. D/W pt and family with nurse at bedside. All questions answered. Quality Measures - VTE Contraindication to Pharmacological VTE Prophylaxis: High Risk of Bleeding Specialty Discharge - Follow Up or Referrals
[2017-03-15] MEDS: AMITRIPTYLINE 10 MG TABLET PO SCH (21:04)
--- NOTE | 2017-03-15 23:23 | Cardiology Progress Note ---
Rere Kaufman April RN, am scribing for, and in the presence of, Miguel Skinner MD 23:22. Assessment and Plan (1) S/P AVR (aortic valve replacement) Status: Acute Current Visit: Yes (2) Aortic stenosis Status: Acute Assessment and plan: Initial assessment and plan 03/14/2017: Recovering post aVR Blood pressure and pulse are slightly elevated Start carvedilol 3.125 mg p.o. twice daily with hold parameters Watch for any further drainage of the chest wound Assessment and plan 03/15/2017: The patient is having significant postoperative pain. His chest wall surgical site is tender We'll give a trial of tramadol, Tylenol, and gabapentin at low doses Discussed with patient He agrees with the plan. Current Visit: Yes (3) Recurrent falls Status: Chronic Assessment and plan: Many of these may actually be related to chronic narcotic use. However, he does have severe aortic stenosis which may also be a factor. He had aortic valve replacement today. Current Visit: Yes (4) Syncope Status: Acute Assessment and plan: Most likely secondary to patient's aortic stenosis, status post aortic valve replacement today. Current Visit: Yes (5) Dementia Status: Chronic Assessment and plan: Stable at present. Current Visit: Yes (6) Hard of hearing Status: Chronic Assessment and plan: Chronic. 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 Youssef Mr. Cardenas is day 4 status post aortic valve replacement Dr. Leblanc. He is seen resting in bed in no acute distress. He denies any pain except at the incision site. Sternal incision is noted to be without evidence of bleeding, infection, or dehiscence. telemetry monitor currently shows sinus rhythm with heart rates in the 80s. Carvedilol 3.5 mg p.o. twice daily starting this morning, pressures look a little better. This afternoon pressure is 120/76. social services manager is working on post hospital placement. Exam (Progress Note) - Constitutional Vitals: Period Temp Pulse Resp BP Sys/Delgadillo Pulse Ox Last 24 Hr 97.6 F-99.5 F 71-99 18-200 116-163/65-97 95-100 Exam: General appearance: normal weight, no acute distress - Head Head exam: Absent: abrasion, hematoma - Eye Eye exam: Absent: periorbital swelling, laceration to eyelids - Neck Neck exam: Absent: tenderness - Respiratory Respiratory exam: Present: clear to auscultation bilaterally, chest wall tenderness. Absent: accessory muscle use - Cardiovascular Cardiovascular exam: Present: regular rate and rhythm, systolic murmur, tachycardia - GI/Abdominal GI/Abdominal exam: Present: normal bowel sounds, soft. Absent: distended, tenderness - Extremities Exam Extremities exam: Absent: edema - Neurological Exam Neurological exam: Present: alert, oriented X3 - Psychiatric Psychiatric exam: Present: normal affect, normal mood - Skin Skin exam: Present: warm, dry, other (Sternal incision noted to be without evidence of bleeding, infection, or dehiscence) Result/EKG - Labs CBC & BMP: 03/14/17 04:45 03/14/17 04:45 Lab Results: I have reviewed the past 24 hour labs Labs: Laboratory Results - last 24 hr 03/14/17 03/15/17 03/15/17 19:33 07:21 11:44 POC Glucose 135 H 115 H 151 H 03/15/17 16:04 POC Glucose 180 H - EKG EKG results: interpreted by me EKG shows: sinus rhythm Quality Measures - VTE Contraindication to Pharmacological VTE Prophylaxis: High Risk of Bleeding Specialty Discharge - Follow Up or Referrals I, Miguel Skinner MD, personally performed the services described in this documentation, ascribed by Helena Jernigan RN in my presence, and it is both accurate and complete [id number] .
[2017-03-16] MEDS: traMADol 50 MG TABLET PO SCH ×2 (00:03→08:17)
[2017-03-16] MEDS: ACETAMINOPHEN 325 MG TABLET PO SCH ×2 (00:03→08:18)
[2017-03-16] MEDS: GABAPENTIN 100 MG CAPSULE PO SCH ×2 (00:03→08:17)
[2017-03-16 04:41] LABS: Basophils % 0.2 % (0.0-0.8); Eosinophils # 0.2 10*3/uL (0.0-0.87); Eosinophils % 2.3 % (0.00-10.9); Hematocrit 31.4 VOL% (42.0-52.0); Hemoglobin 10.7 GM/DL (14.0-18.0); Immature Granulocytes % 1.1 %; Lymphocytes % 32.2 % (21.2-54.2); Mean Corpuscular HGB Conc 34.1 GM/DL (32-36); Mean Corpuscular Hemoglobin 31 PG (27-34); Mean Corpuscular Volume 91.8 FL (87-102); Mean Platelet Volume 9.6 FL (9.6-12.0); Monocytes # 1.1 10*3/uL (0.11-0.8); Monocytes % 11.8 % (1.7-12.7); Neutrophils # 4.9 10*3/uL (1.4-7.4); Neutrophils % 52.4 % (38.7-73.9); Platelet Count 436 T/CUMM (130-400); Red Blood Count 3.42 MC/CUMM (3.8-5.5); Red Cell Distribution Width 12.8 % (9.3-17.3); White Blood Count 9.3 T/CUMM (4-12)
[2017-03-16 05:13] LABS: Alanine Aminotransferase 40 U/L (16-61); Albumin 3.3 G/DL (3.4-5.0); Alkaline Phosphatase 74 U/L (45-117); Aspartate Amino Transferase 24 U/L (0-37); Bilirubin,Indirect 0.6 MG/DL (0.0-1.0); Blood Urea Nitrogen 14 MG/DL (7-18); Calcium 9.2 MG/DL (8.5-10.1); Glucose 110 MG/DL (74-106); Magnesium 2.3 MG/DL (1.8-2.4); Osmolality,Calculated 284.1 MOS/KG (273-304); Potassium 3.9 MMOL/L (3.5-5.1); Sodium 142 MMOL/L (136-145)
[2017-03-16 05:15] LABS: Troponin I Only 0.359 NG/ML (0.00-0.045)
--- NOTE | 2017-03-16 06:22 | Discharge Summary ---
Hospital Course - Hospital Course Hospital Course: History of present illness: Patient is a 67-year-old man who has known aortic stenosis who is experiencing increasing symptoms of fatigue and weakness and shortness of breath over the past 6 months. He was admitted for evaluation including cardiac catheterization and echocardiography which demonstrated significant progression of his aortic stenosis and there is advised to have aortic valve replacement. He is admitted for that purpose. Of significance is the patient is extremely hard of hearing and has mild level of dementia. There also is a long history of opiate use for chronic pain syndrome. Past medical history review of systems social history and family history are documented in admission notes. Hospital course: Patient was taken to surgery and a severely calcified aortic valve was removed and replaced with a 23 mm pericardial prosthesis. Patient's postoperative course was gratifyingly smooth and uncomplicated. He was transferred to a swing bed on the sixth postoperative day for continued assisted care primarily because of his hearing deficit and degree of dementia. He will be seen in follow-up in 1 month and discharge medications are listed below. Specialty Discharge - Follow Up or Referrals Follow up with: Cameron Leblanc MD [Physician] - 1 Month Discharge Plan - Discharge Data Disposition: Swing Bed, [facility] Based, [facility] [place] Condition at Discharge: Stable Discharge Diet: advance to your usual diet Activity: resume usual activities as tolerated Hygiene: no restrictions Weight Bearing at Discharge: full weight bearing Driving: not until seen by doctor - Discharge Medications New Gabapentin Cap/Tab [Neurontin Cap/Tab] 100 mg PO TID capsule Pantoprazole Tab [Protonix Tab] 40 mg PO DAILY tablet Amitriptyline [Elavil] 10 mg PO BEDTIME tablet Aspirin EC Tab 325 mg PO DAILY tablet Baclofen Tab [Lioresal] 10 mg PO TID tablet Carvedilol [Coreg] 3.125 mg PO BID tablet clonazePAM TAB [KlonoPIN] 1 mg PO BID PRN tablet PRN Reason: Anxiety Gabapentin Cap/Tab [Neurontin Cap/Tab] 400 mg PO BID capsule Levofloxacin Tab [Levaquin Tab] 500 mg PO DAILY tablet Nabumetone [Relafen] 750 mg PO BID tablet oxyCODONE/ACETAMINOPHEN 5-325 [Percocet 5-325] 1 tablet PO Q4H PRN tablet PRN Reason: Pain Mild (1-3) predniSONE TAB [PredniSONE] 20 mg PO DAILY tablet tiZANidine [Zanaflex] 4 mg PO Q8H PRN tablet PRN Reason: Pain traMADol TAB [Ultram] 50 mg PO BID tablet Continue Nabumetone [Relafen] 750 mg PO BID clonazePAM [Klonopin] 1 mg PO BID PRN PRN Reason: Anxiety Tizanidine HCl 4 mg PO Q8H PRN PRN Reason: Pain Gabapentin Cap/Tab [Neurontin Cap/Tab] 800 mg PO BID Baclofen Tab [Lioresal] 10 mg PO TID Amitriptyline HCl 25 mg PO BEDTIME Discontinued Acetamin/Codeine 300-30 Tab [Tylenol/Codeine #3] 1 tablet PO Q6H PRN PRN Reason: Pain predniSONE TAB [PredniSONE] 40 mg PO DAILY - Follow Up or Referral - Forms/Instructions Instructions: Aortic Valve Replacement (DC), Heart Healthy Diet (GEN), Cigarette Smoking and Your Health, Telecom Network Manager (GEN), Sternal Precautions ( GEN), How to Stop Smoking, Telecom Network Manager (GEN) Exam - Constitutional Vitals: Period Temp Pulse Resp BP Sys/Delgadillo Pulse Ox Last 24 Hr 97.6 F-99 F 77-99 16-20 116-160/69-85 97-100 Discharge Results Procedures and tests throughout hospitalization: Pending Orders 03/10/17 04:14 Fresh Frozen Plasma Routine Red Blood Cells Leuko Red Routine Single Donor Platelets Routine Type and Screen Routine 03/16/17 04:00 XR chest 2V IN AM 03/17/17 04:00 XR chest 2V IN AM BMP w/ Mg [Basic Metabolic Panel w/Mg] IN AM Bilirubin Profile Adult IN AM CBC [Comp Blood Count Auto Diff] IN AM Comp Blood Count Auto Diff IN AM Comprehensive Metabolic Panel IN AM Hepatic (Liver) Panel IN AM Magnesium IN AM Troponin,CKMB & Ck Total IN AM 03/18/17 04:00 BMP w/ Mg [Basic Metabolic Panel w/Mg] IN AM CBC [Comp Blood Count Auto Diff] IN AM Labs on day of discharge: Labs from last 24 hours 03/16/17 03/16/17 03/15/17 04:06 04:06 20:07 WBC 9.3 RBC 3.42 L Hgb 10.7 L Hct 31.4 L MCV 91.8 MCH 31 MCHC 34.1 RDW 12.8 Plt Count 436 H D MPV 9.6 Neut % (Auto) 52.4 Lymph % (Auto) 32.2 [place] % (Auto) 11.8 Eos % (Auto) 2.3 Baso % (Auto) 0.2 Neut # (Auto) 4.9 Lymph # (Auto) 3.0 [place] # (Auto) 1.1 H Eos # (Auto) 0.2 Baso # (Auto) 0.0 Immature Gran % 1.1 Nucleated RBC % 0.0 Immature Gran # 0.10 Nucleated RBCs # 0.00 Sodium 142 Potassium 3.9 Chloride 102 Carbon Dioxide 29 Anion Gap 14.9 BUN 14 Creatinine 0.80 GFR Calculation 92 BUN/Creatinine Ratio 17.00 Glucose 110 H POC Glucose 135 H Calculated Osmolality 284.1 Calcium 9.2 Magnesium 2.3 Total Bilirubin 0.70 Direct Bilirubin 0.10 Indirect Bilirubin 0.6 AST 24 ALT 40 Alkaline Phosphatase 74 Total Creatine Kinase 55 D CK-MB (CK-2) < 1.0 Troponin I 0.359 H D Total Protein 6.0 L Albumin 3.3 L Globulin 2.7 Albumin/Globulin Ratio 1.2 03/15/17 03/15/17 03/15/17 16:04 11:44 07:21 WBC RBC Hgb Hct MCV MCH MCHC RDW Plt Count MPV Neut % (Auto) Lymph % (Auto) [place] % (Auto) Eos % (Auto) Baso % (Auto) Neut # (Auto) Lymph # (Auto) [place] # (Auto) Eos # (Auto) Baso # (Auto) Immature Gran % Nucleated RBC % Immature Gran # Nucleated RBCs # Sodium Potassium Chloride Carbon Dioxide Anion Gap BUN Creatinine GFR Calculation BUN/Creatinine Ratio Glucose POC Glucose 180 H 151 H 115 H Calculated Osmolality Calcium Magnesium Total Bilirubin Direct Bilirubin Indirect Bilirubin AST ALT Alkaline Phosphatase Total Creatine Kinase CK-MB (CK-2) Troponin I Total Protein Albumin Globulin Albumin/Globulin Ratio DS: Provider Date of admission: 03/06/17 16:32 Primary care physician: . No PCP Attending physician on admission: Marija Morrissey MD Consults: 03/06/17 17:52 Consult to Dietitian [CONS] Routine Reason for Dietitian: Other Consult Comment: Admission assessment 03/12/17 08:49 Consult to Cardiac Rehabilitation [CONS] Routine Reason for Cardiac Rehabilitation: Other Consult Comment: Post CABG/heart surgery Consult to Diabetes Center, Educator [CONS] Routine Reason for Rn Building: Diabetes Education Initial Insulin Education Consult Comment: insulin education Consult to Dietitian [CONS] Routine Reason for Dietitian: Dietary Consult Consult Comment: Cardiac, low salt, low cholesterol diet Consult to Physical Therapy [CONS] Routine Reason for Physical Therapy: Other Consult Comment: CV Rehab Consult to Physician [CONS] Routine Comment: Management of diabetes Consulting Provider: Consult to Specialist Group: Hospitalist 03/13/17 10:46 Consult to Case Mgmt/Social Srvs [CONS] Routine Reason for Case Mgmt/Social Srvs: Discharge Planning Consult Comment: swingbed after discharge, he may already have bed at [place] Discharging clinician: Cameron Leblanc MD Expected date of discharge: 03/16/17
[2017-03-16 07:49] VITALS: BP 105/77
--- NOTE | 2017-03-16 07:56 | XRay Report ---
XR chest 2V Indication: SOB Comparison: Chest x-ray dated March 14, 2017 Technique: Frontal and lateral views of the chest. Findings: Continued mild cardiomegaly status post sternotomy/cardiac valve replacement. Right-sided central venous catheter tip projects over the mid to lower right atrium. There is mild bibasilar atelectasis. Underlying infection would be difficult to completely exclude. There is small bilateral pleural fluid. Visualized osseous and surrounding soft tissue structures appear grossly unchanged. IMPRESSION: As above. PROCEDURE INTERPRETED AT [facility] DEPARTMENT OF RADIOLOGY Final Report Signed by: Dr Gibson Castellano
[2017-03-16] MEDS: predniSONE 20 MG TABLET PO SCH (08:16)
[2017-03-16] MEDS: BACLOFEN 10 MG TABLET PO SCH (08:16)
[2017-03-16] MEDS: FERROUS SULFATE 325 MG TABLET PO SCH (08:16)
[2017-03-16] MEDS: NABUMETONE 750 MG TABLET PO SCH (08:16)
[2017-03-16] MEDS: DOCUSATE SODIUM 100 MG CAPSULE PO SCH (08:17)
[2017-03-16] MEDS: PANTOPRAZOLE 40 MG TABLET PO SCH (08:17)
[2017-03-16] MEDS: LEVOFLOXACIN 500 MG TABLET PO SCH (08:17)
[2017-03-16] MEDS: ASPIRIN EC 325 MG TABLET PO SCH (08:17)
[2017-03-16] MEDS: GABAPENTIN 400 MG CAPSULE PO SCH (08:17)
[2017-03-16] MEDS: CARVEDILOL 3.125 MG TABLET PO SCH (08:18)
[2017-03-16] MEDS: INSULIN LISPRO 100 UNIT/ML SUBCUT SCH (08:21)
[2017-03-16] MEDS: CHLORHEXIDINE 0.12% ORAL RINSE 60 ML BOTTLE SWISH/SPIT SCH (08:21)
--- NOTE | 2017-03-16 11:30 | Hospitalist Progress Note ---
Hospitalist: Subjective Interval history: No new complaints. No significant overnight events noted/reported. Exam - Constitutional Vitals: Period Temp Pulse Resp BP Sys/Delgadillo Pulse Ox Last 24 Hr 97.6 F-98.9 F 78-99 16-20 105-139/69-85 94-100 Exam: GEN: Awake alert and oriented 3, hearing impairment HEENT: PERRL EOMI sclera clear CV: RRR no M CHEST: no surrounding erythema/ no evidence of dehiscence ABD: Soft, NT, ND, +BS Warm: no c/c/e Results - Labs CBC & BMP: 03/16/17 04:06 03/16/17 04:06 - Impressions (1) Severe aortic stenosis Status: Acute Assessment and plan: S/P AVR 03/12 Dr Leblanc directing post op care with cardiology. (2) Hyperglycemia Glucose range 125-190. SSI. No diabetes pre op. Glucose coming down each day. Change to oral is still needs something at discharge. Current Visit: Yes (3) Acute encephalopathy Status: Resolved Current Visit: Yes (4) Recurrent falls Status: Chronic Current Visit: Yes (5) Acute kidney injury Status: Resolved Current Visit: Yes ok to dc to rehab from my standpoint. D/W pt and family with nurse at bedside. All questions answered. Will sign off. call with questions Quality Measures - VTE Contraindication to Pharmacological VTE Prophylaxis: High Risk of Bleeding Specialty Discharge - Follow Up or Referrals Follow up with: Cameron Leblanc MD [Physician] - 04/19/17 10:00 am Fabio Youssef MD [Physician] - 04/05/17 1:40 pm (CBC BMP mag EKG)
--- NOTE | 2017-03-16 13:03 | Cardiology Progress Note ---
Rere Kaufman April RN, am scribing for, and in the presence of, Miguel Skinner MD 13:02. Assessment and Plan (1) S/P AVR (aortic valve replacement) Status: Acute (2) Aortic stenosis Status: Acute Assessment and plan: Initial assessment and plan 03/14/2017: Recovering post aVR Blood pressure and pulse are slightly elevated Start carvedilol 3.125 mg p.o. twice daily with hold parameters Watch for any further drainage of the chest wound Assessment and plan 03/15/2017: The patient is having significant postoperative pain. His chest wall surgical site is tender We'll give a trial of tramadol, Tylenol, and gabapentin at low doses Discussed with patient He agrees with the plan. Assessment and plan 03/16/2017: His chest wall soreness is better He is being transferred to swing bed We will continue the tramadol, Tylenol, and gabapentin He will follow-up with Dr. Naga Yuossef in about 4 weeks as he will probably be in swing bed for 2 weeks. Thank you for allowing me to participate in this patient's care (3) Recurrent falls Status: Chronic Assessment and plan: Many of these may actually be related to chronic narcotic use. However, he does have severe aortic stenosis which may also be a factor. He had aortic valve replacement today. (4) Syncope Status: Acute Assessment and plan: Most likely secondary to patient's aortic stenosis, status post aortic valve replacement today. (5) Dementia Status: Chronic Assessment and plan: Stable at present. (6) Hard of hearing Status: Chronic Assessment and plan: Chronic. 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 Cardenas is day 5 status post aortic valve replacement by Dr. Leblanc. He is seen resting in bed no acute distress. He continues to have discomfort at the incision site but denies any other pain. Sternal incision is without evidence of bleeding, infection, or dehiscence. He denies shortness of breath, palpitations, or dizziness. threat monitoring analyst currently shows sinus rhythm with heart rates in the 70s. His vital signs been stable, blood pressure this morning 105/77. His troponins continued to trend down, this morning it is 0.359. He is being discharged today to swing bed. We will have him follow up with Dr. Youssef in 2 weeks. Exam (Progress Note) - Constitutional Vitals: Period Temp Pulse Resp BP Sys/Delgadillo Pulse Ox Last 24 Hr 97.6 F-98.9 F 78-99 16-20 105-139/69-85 94-100 Exam: General appearance: normal weight, no acute distress - Head Head exam: Absent: abrasion, hematoma - Eye Eye exam: Absent: periorbital swelling, laceration to eyelids - Neck Neck exam: Absent: tenderness - Respiratory Respiratory exam: Present: clear to auscultation bilaterally, chest wall tenderness. Absent: accessory muscle use - Cardiovascular Cardiovascular exam: Present: regular rate and rhythm, systolic murmur - GI/Abdominal GI/Abdominal exam: Present: normal bowel sounds, soft. Absent: distended, tenderness - Extremities Exam Extremities exam: Absent: edema - Neurological Exam Neurological exam: Present: alert, oriented X3 - Psychiatric Psychiatric exam: Present: normal affect, normal mood - Skin Skin exam: Present: warm, dry, other (Sternal incision noted to be without evidence of bleeding, infection, or dehiscence) Result/EKG - Labs CBC & BMP: 03/16/17 04:06 03/16/17 04:06 Lab Results: I have reviewed the past 24 hour labs Labs: Laboratory Results - last 24 hr 03/15/17 03/15/17 03/15/17 11:44 16:04 20:07 WBC RBC Hgb Hct MCV MCH MCHC RDW Plt Count MPV Neut % (Auto) Lymph % (Auto) [place] % (Auto) Eos % (Auto) Baso % (Auto) Neut # (Auto) Lymph # (Auto) [place] # (Auto) Eos # (Auto) Baso # (Auto) Immature Gran % Nucleated RBC % Immature Gran # Nucleated RBCs # Sodium Potassium Chloride Carbon Dioxide Anion Gap BUN Creatinine GFR Calculation BUN/Creatinine Ratio Glucose POC Glucose 151 H 180 H 135 H Calculated Osmolality Calcium Magnesium Total Bilirubin Direct Bilirubin Indirect Bilirubin AST ALT Alkaline Phosphatase Total Creatine Kinase CK-MB (CK-2) Troponin I Total Protein Albumin Globulin Albumin/Globulin Ratio 03/16/17 03/16/17 03/16/17 04:06 04:06 07:45 WBC 9.3 RBC 3.42 L Hgb 10.7 L Hct 31.4 L MCV 91.8 MCH 31 MCHC 34.1 RDW 12.8 Plt Count 436 H D MPV 9.6 Neut % (Auto) 52.4 Lymph % (Auto) 32.2 [place] % (Auto) 11.8 Eos % (Auto) 2.3 Baso % (Auto) 0.2 Neut # (Auto) 4.9 Lymph # (Auto) 3.0 [place] # (Auto) 1.1 H Eos # (Auto) 0.2 Baso # (Auto) 0.0 Immature Gran % 1.1 Nucleated RBC % 0.0 Immature Gran # 0.10 Nucleated RBCs # 0.00 Sodium 142 Potassium 3.9 Chloride 102 Carbon Dioxide 29 Anion Gap 14.9 BUN 14 Creatinine 0.80 GFR Calculation 92 BUN/Creatinine Ratio 17.00 Glucose 110 H POC Glucose 118 H Calculated Osmolality 284.1 Calcium 9.2 Magnesium 2.3 Total Bilirubin 0.70 Direct Bilirubin 0.10 Indirect Bilirubin 0.6 AST 24 ALT 40 Alkaline Phosphatase 74 Total Creatine Kinase 55 D CK-MB (CK-2) < 1.0 Troponin I 0.359 H D Total Protein 6.0 L Albumin 3.3 L Globulin 2.7 Albumin/Globulin Ratio 1.2 - EKG EKG results: interpreted by me EKG shows: sinus rhythm Quality Measures - VTE Contraindication to Pharmacological VTE Prophylaxis: High Risk of Bleeding Specialty Discharge - Follow Up or Referrals Follow up with: Cameron Leblanc MD [Physician] - 04/19/17 10:00 am Fabio Youssef MD [Physician] - 04/05/17 1:40 pm (CBC BMP mag EKG) Susanne Kaufman Dale, MD, personally performed the services described in this documentation, ascribed by Helena Jernigan RN in my presence, and it is both accurate and complete .
== END 2017-03-16 11:10 | DRG 981 ==
LOC: N.ED 13:56 → SUATTDRO 16:32 → N.EDINP 16:32 → N.4E 17:57 → N.TELEN 03-09 09:29 → N.CVR 03-11 10:33 → N.TELES 03-12 10:38
PROVIDERS: ADMIT Internal Medicine; ATTEND Pediatrics